=== PATIENT | female | born 1970 | race Caucasian/White ===

== ENCOUNTER 2018-11-10 12:45 | Inpatient (IN) | payer MEDICAID ==
[~2018-11-10] VITALS: Ht 167.6 cm; Wt 94.3 kg
[2018-11-10 12:50] VITALS: BP_SYST 161
[2018-11-10 13:39] LABS: CALCIUM 8.5 mg/dL (8.4-11.0); CREATININE 0.84 mg/dL (0.55-1.30); POTASSIUM 3.3 mmol/L (3.5-5.1)
[2018-11-10 13:45] LABS: ALBUMIN 3.9 g/dL (3.4-4.8); TOTAL BILIRUBIN 0.3 mg/dL (0.0-1.0)
[2018-11-10 13:50] LABS: HEMOGLOBIN 7.9 g/dL (12.0-16.0); MEAN CORPUSCULAR HEMOGLOBIN 24 pg (27-31); MEAN CORPUSCULAR HGB CONC 31 % (32-36); MEAN CORPUSCULAR VOLUME 77 fL (79.0-98.0); PLATELET COUNT (AUTO) 349 K/uL (130-430); RED BLOOD CELL COUNT(AUTO) 3.25 MIL/uL (4.2-6.2); RED CELL DISTRIBUTION WIDTH 16.4 % (9.0-15.0); WHITE BLOOD COUNT (AUTO) 11.2 K/uL (4.8-10.8)
[2018-11-10 13:51] LABS: BASOPHILS # (AUTO) 0.1 K/uL (0.0-0.2); BASOPHILS % (AUTO) 0.7 % (0.0-2.0); EOSINOPHILS % (AUTO) 0.3 % (0.0-4.0); LYMPHOCYTES # (AUTO) 2.5 K/uL (1.0-5.5); LYMPHOCYTES % (AUTO) 22.2 % (20.5-51.5); MONOCYTES # (AUTO) 0.6 K/uL (0.0-1.0); MONOCYTES % (AUTO) 5.4 % (1.7-9.3); NEUTROPHILS % (AUTO) 71.4 % (40.0-70.0)
[2018-11-10 14:42] LABS: PROTHROMBIN TIME 10.1 SECS (9.5-12.5)
[2018-11-10] MEDS ORDERED: GABA-531 PO (14:49)
[2018-11-10] MEDS ORDERED: DULO60CA41 PO (14:49)
[2018-11-10] MEDS ORDERED: METH500T PO (14:49)
[2018-11-10] MEDS ORDERED: HYDR-4272 PO (14:49)
[2018-11-10] MEDS ORDERED: MODA100T53 PO (14:49)
[2018-11-10] MEDS ORDERED: ZOLP10TA2 PO (14:49)
[2018-11-10] MEDS ORDERED: ONDANSETRON HCL 4 MG/2 ML VIAL IVP ONE (16:15)
[2018-11-10] MEDS ORDERED: PANTOPRAZOLE SODIUM 40 MG/VIAL (PROTONIX) IVP ONE (16:15)
[2018-11-10 16:49] VITALS: BP_SYST 149
[2018-11-10 16:57] VITALS: BP_SYST 149
[2018-11-10] MEDS: ACETAMINOPHEN 650 MG/20.3 ML UDC PO PRN ×2 (17:31→23:14)
[2018-11-10 20:00] VITALS: BP_SYST 125
[2018-11-11 00:25] VITALS: BP_SYST 136
[2018-11-11 07:43] VITALS: BP_SYST 116
[2018-11-11] MEDS: HYDROcodone/ACETAMIN 5-325 MG TAB (NORCO/ VICODIN) PO PRN ×3 (07:51→20:11)
[2018-11-11 07:55] LABS: ALBUMIN 3.2 g/dL (3.4-4.8); CREATININE 0.58 mg/dL (0.55-1.30); TOTAL BILIRUBIN 0.6 mg/dL (0.0-1.0)
[2018-11-11 08:08] LABS: HEMATOCRIT 26.8 % (36-48); HEMOGLOBIN 8.7 g/dL (12.0-16.0); MEAN CORPUSCULAR HEMOGLOBIN 25 pg (27-31); MEAN CORPUSCULAR HGB CONC 33 % (32-36); MEAN CORPUSCULAR VOLUME 79 fL (79.0-98.0); NEUTROPHILS % (AUTO) 52.5 % (40.0-70.0); PLATELET COUNT (AUTO) 306 K/uL (130-430); POTASSIUM 2.9 mmol/L (3.5-5.1); RED CELL DISTRIBUTION WIDTH 16.3 % (9.0-15.0); WHITE BLOOD COUNT (AUTO) 8.6 K/uL (4.8-10.8)
[2018-11-11 08:09] LABS: BASOPHILS % (AUTO) 0.6 % (0.0-2.0); EOSINOPHILS % (AUTO) 1.3 % (0.0-4.0); LYMPHOCYTES # (AUTO) 3.3 K/uL (1.0-5.5); LYMPHOCYTES % (AUTO) 37.8 % (20.5-51.5); MONOCYTES % (AUTO) 7.8 % (1.7-9.3); NEUTROPHILS # (AUTO) 4.5 K/uL (1.8-7.7)
[2018-11-11 08:10] LABS: EOSINOPHILS # (AUTO) 0.1 K/uL (0.0-0.4); MONOCYTES # (AUTO) 0.7 K/uL (0.0-1.0)
[2018-11-11 08:16] LABS: TOTAL IRON BIND. CAPACITY 369 ug/dL (250-450)
[2018-11-11] MEDS: PANTOPRAZOLE SODIUM 40 MG/VIAL (PROTONIX) IVP SCH (08:38)
[2018-11-11] MEDS: ONDANSETRON HCL 4 MG/2 ML VIAL IVP SCH (08:38)
[2018-11-11] MEDS: DULoxetine HCL 30 MG CAPSULE.DR (CYMBALTA) PO SCH (08:39)
[2018-11-11] MEDS: MODAFINIL 100 MG TABLET (PROVIGIL) PO SCH (08:39)
[2018-11-11] MEDS: GABAPENTIN 300 MG CAPSULE PO SCH ×3 (08:39→20:12)
[2018-11-11] MEDS: METHOCARBAMOL 500 MG TABLET PO SCH ×3 (08:39→20:12)
[2018-11-11] MEDS ORDERED: POTASSIUM CHLORIDE 20 MEQ TAB.PRT.SR PO ONE (10:30)
[2018-11-11 12:02] VITALS: BP_SYST 131
[2018-11-11 16:21] VITALS: BP_SYST 132
[2018-11-11] MEDS ORDERED: MAG-AL HYDROX/SIMETH 30 ML UDC PO PRN (17:45)
[2018-11-11 20:00] VITALS: BP_SYST 120
[2018-11-11] MEDS ORDERED: ZOLPIDEM TARTRATE 5 MG TABLET PO SCH (21:00)
[2018-11-11] MEDS: ZOLPIDEM TARTRATE 5 MG TABLET PO SCH (22:52)
[2018-11-12] VITALS (7 sets, daily range): BP systolic 128–154
[2018-11-12 07:18] LABS: CALCIUM 8.1 mg/dL (8.4-11.0); CREATININE 0.57 mg/dL (0.55-1.30); POTASSIUM 3.7 mmol/L (3.5-5.1)
[2018-11-12 07:47] LABS: HEMATOCRIT 26.7 % (36-48); HEMOGLOBIN 8.5 g/dL (12.0-16.0); LYMPHOCYTES % (AUTO) 28.7 % (20.5-51.5); MEAN CORPUSCULAR HEMOGLOBIN 25 pg (27-31); MEAN CORPUSCULAR HGB CONC 32 % (32-36); MEAN CORPUSCULAR VOLUME 79 fL (79.0-98.0); NEUTROPHILS % (AUTO) 62.3 % (40.0-70.0); PLATELET COUNT (AUTO) 290 K/uL (130-430); RED BLOOD CELL COUNT(AUTO) 3.36 MIL/uL (4.2-6.2); RED CELL DISTRIBUTION WIDTH 16.5 % (9.0-15.0); WHITE BLOOD COUNT (AUTO) 9.5 K/uL (4.8-10.8)
[2018-11-12 07:48] LABS: BASOPHILS % (AUTO) 0.4 % (0.0-2.0); EOSINOPHILS # (AUTO) 0.1 K/uL (0.0-0.4); LYMPHOCYTES # (AUTO) 2.7 K/uL (1.0-5.5); MONOCYTES # (AUTO) 0.7 K/uL (0.0-1.0); MONOCYTES % (AUTO) 7.6 % (1.7-9.3)
[2018-11-12] MEDS: ONDANSETRON HCL 4 MG/2 ML VIAL IVP SCH (08:00)
[2018-11-12] MEDS: GABAPENTIN 300 MG CAPSULE PO SCH ×3 (08:00→20:14)
[2018-11-12] MEDS: METHOCARBAMOL 500 MG TABLET PO SCH ×3 (08:00→20:14)
[2018-11-12] MEDS: PANTOPRAZOLE SODIUM 40 MG/VIAL (PROTONIX) IVP SCH (08:00)
[2018-11-12] MEDS: DULoxetine HCL 30 MG CAPSULE.DR (CYMBALTA) PO SCH (08:00)
[2018-11-12] MEDS: MODAFINIL 100 MG TABLET (PROVIGIL) PO SCH (08:00)
[2018-11-12] MEDS: HYDROcodone/ACETAMIN 5-325 MG TAB (NORCO/ VICODIN) PO PRN ×4 (08:00→21:15)
[2018-11-12] MEDS: ACETAMINOPHEN 650 MG/20.3 ML UDC PO PRN ×2 (11:29→18:52)
[2018-11-12] MEDS ORDERED: POTASSIUM CHLORIDE 20 MEQ/PKT PACKET PO ONE (11:58)
[2018-11-12] MEDS ORDERED: FUROSEMIDE 40 MG/4 ML VIAL IVP ONE (11:58)
[2018-11-12] MEDS ORDERED: AZITHROMYCIN 250 MG TABLET PO ONE (12:15)
[2018-11-12] MEDS: ALBUTEROL SULFATE 0.083% 2.5 MG/3 ML VIAL.NEB INH PRN (13:18)
[2018-11-12] MEDS: MORPHINE 4 MG/ML INJ. SYRINGE IVP PRN (14:45)
[2018-11-12] MEDS ORDERED: MORPHINE 4 MG/ML INJ. SYRINGE ONE (18:46)
[2018-11-12] MEDS ORDERED: MORPHINE 4 MG/ML INJ. SYRINGE IVP SCH (19:00)
[2018-11-12] MEDS: ZOLPIDEM TARTRATE 5 MG TABLET PO SCH (23:27)
[2018-11-12] MEDS ORDERED: ZOLPIDEM TARTRATE 5 MG TABLET ONE (23:36)
[2018-11-13] MEDS: MORPHINE 4 MG/ML INJ. SYRINGE IVP PRN ×3 (01:41→14:17)
[2018-11-13] MEDS: HYDROcodone/ACETAMIN 5-325 MG TAB (NORCO/ VICODIN) PO PRN ×3 (05:57→21:35)
[2018-11-13 07:59] LABS: CALCIUM 8.8 mg/dL (8.4-11.0); CREATININE 0.83 mg/dL (0.55-1.30); POTASSIUM 3.5 mmol/L (3.5-5.1)
[2018-11-13 08:15] VITALS: BP_SYST 150
[2018-11-13] MEDS: ONDANSETRON HCL 4 MG/2 ML VIAL IVP SCH (08:15)
[2018-11-13] MEDS: GABAPENTIN 300 MG CAPSULE PO SCH ×3 (08:16→21:35)
[2018-11-13] MEDS: MODAFINIL 100 MG TABLET (PROVIGIL) PO SCH (08:16)
[2018-11-13] MEDS: AZITHROMYCIN 250 MG TABLET PO SCH (08:16)
[2018-11-13] MEDS: METHOCARBAMOL 500 MG TABLET PO SCH ×3 (08:17→21:35)
[2018-11-13] MEDS: DULoxetine HCL 30 MG CAPSULE.DR (CYMBALTA) PO SCH (08:17)
[2018-11-13] MEDS: PANTOPRAZOLE SODIUM 40 MG/VIAL (PROTONIX) IVP SCH (08:17)
[2018-11-13 08:36] LABS: WHITE BLOOD COUNT (AUTO) 11.6 K/uL (4.8-10.8)
[2018-11-13 08:42] LABS: HEMATOCRIT 31.9 % (36-48); HEMOGLOBIN 9.9 g/dL (12.0-16.0); MEAN CORPUSCULAR HEMOGLOBIN 25 pg (27-31); MEAN CORPUSCULAR HGB CONC 31 % (32-36); MEAN CORPUSCULAR VOLUME 80 fL (79.0-98.0); MONOCYTES % (AUTO) 15.7 % (1.7-9.3); NEUTROPHILS % (AUTO) 63.6 % (40.0-70.0); PLATELET COUNT (AUTO) 364 K/uL (130-430); RED CELL DISTRIBUTION WIDTH 16.6 % (9.0-15.0)
[2018-11-13 08:43] LABS: BASOPHILS % (AUTO) 0.3 % (0.0-2.0); EOSINOPHILS % (AUTO) 0.4 % (0.0-4.0); LYMPHOCYTES # (AUTO) 2.3 K/uL (1.0-5.5); MONOCYTES # (AUTO) 1.8 K/uL (0.0-1.0); NEUTROPHILS # (AUTO) 7.4 K/uL (1.8-7.7)
[2018-11-13] MEDS ORDERED: MILK OF MAGNESIA 30 ML UDC PO ONE (09:15)
[2018-11-13 12:32] VITALS: BP_SYST 116
[2018-11-13] MEDS: ALBUTEROL SULFATE 0.083% 2.5 MG/3 ML VIAL.NEB INH PRN (15:46)
[2018-11-13 16:10] VITALS: BP_SYST 124
[2018-11-13 17:11] VITALS: BP_SYST 124
[2018-11-13] MEDS: ACETAMINOPHEN 650 MG/20.3 ML UDC PO PRN (21:34)
[2018-11-13] MEDS: ZOLPIDEM TARTRATE 5 MG TABLET PO SCH (22:19)
[2018-11-13] MEDS ORDERED: ZOLPIDEM TARTRATE 5 MG TABLET ONE (22:24)
[2018-11-14 00:02] VITALS: BP_SYST 126
[2018-11-14] MEDS: ACETAMINOPHEN 650 MG/20.3 ML UDC PO PRN (05:19)
[2018-11-14] MEDS: HYDROcodone/ACETAMIN 5-325 MG TAB (NORCO/ VICODIN) PO PRN ×3 (05:20→17:33)
[2018-11-14] MEDS: MORPHINE 4 MG/ML INJ. SYRINGE IVP PRN ×3 (06:26→20:56)
[2018-11-14 08:00] VITALS: BP_SYST 101
[2018-11-14] MEDS: PANTOPRAZOLE SODIUM 40 MG/VIAL (PROTONIX) IVP SCH (08:03)
[2018-11-14] MEDS: ONDANSETRON HCL 4 MG/2 ML VIAL IVP SCH (08:03)
[2018-11-14] MEDS: MODAFINIL 100 MG TABLET (PROVIGIL) PO SCH (08:04)
[2018-11-14] MEDS: GABAPENTIN 300 MG CAPSULE PO SCH ×3 (08:04→20:22)
[2018-11-14] MEDS: DULoxetine HCL 30 MG CAPSULE.DR (CYMBALTA) PO SCH (08:04)
[2018-11-14] MEDS: AZITHROMYCIN 250 MG TABLET PO SCH (08:04)
[2018-11-14] MEDS: METHOCARBAMOL 500 MG TABLET PO SCH ×3 (08:04→20:22)
[2018-11-14 08:07] LABS: CALCIUM 7.9 mg/dL (8.4-11.0); CREATININE 0.73 mg/dL (0.55-1.30); HEMOGLOBIN 8.9 g/dL (12.0-16.0); MEAN CORPUSCULAR VOLUME 79 fL (79.0-98.0); POTASSIUM 3.6 mmol/L (3.5-5.1); RED BLOOD CELL COUNT(AUTO) 3.55 MIL/uL (4.2-6.2); WHITE BLOOD COUNT (AUTO) 6.9 K/uL (4.8-10.8)
[2018-11-14 08:08] LABS: BASOPHILS % (AUTO) 0.5 % (0.0-2.0); EOSINOPHILS % (AUTO) 0.6 % (0.0-4.0); LYMPHOCYTES # (AUTO) 1.3 K/uL (1.0-5.5); LYMPHOCYTES % (AUTO) 18.3 % (20.5-51.5); MEAN CORPUSCULAR HEMOGLOBIN 25 pg (27-31); MEAN CORPUSCULAR HGB CONC 32 % (32-36); MONOCYTES # (AUTO) 0.9 K/uL (0.0-1.0); NEUTROPHILS # (AUTO) 4.7 K/uL (1.8-7.7); NEUTROPHILS % (AUTO) 67.6 % (40.0-70.0); PLATELET COUNT (AUTO) 296 K/uL (130-430); RED CELL DISTRIBUTION WIDTH 17.5 % (9.0-15.0)
[2018-11-14 08:17] LABS: ALBUMIN 3.2 g/dL (3.4-4.8); TOTAL BILIRUBIN 0.3 mg/dL (0.0-1.0)
[2018-11-14] MEDS ORDERED: MAGNESIUM CITRATE 300 ML ORAL SOLUTION PO ONE (09:15)
[2018-11-14] MEDS: cefTRIAXone 1 GM in D5W 50 ML IV SCH (12:04)
[2018-11-14 12:06] VITALS: BP_SYST 126
[2018-11-14 13:35] LABS: BILIRUBIN,URINE 1+ (NEGATIVE); BLOOD, URINE 3+ (NEGATIVE); CLARITY/URINE HAZY (CLEAR); COLOR,URINE YELLOW (YELLOW); GLUCOSE,URINE NEGATIVE (NEGATIVE); KETONES,URINE NEGATIVE (NEGATIVE); LEUKOCYTE ESTERASE ,URINE NEGATIVE (NEGATIVE); NITRITE, URINE NEGATIVE (NEGATIVE); PH,URINE 5.5 (5.0-8.0); PROTEIN URINE 2+ (NEGATIVE); UROBILINOGEN,URINE 0.2 (0.2-1.0)
[2018-11-14 14:17] LABS: BACTERIA,URINE FEW /HPF (None Seen); RBC,URINE >100 /HPF (0-3); WBC,URINE 0-3 /HPF (0-3); YEAST,URINE None Seen /HPF (None Seen)
[2018-11-14 14:18] LABS: MUCUS,URINE None Seen /LPF (None Seen)
[2018-11-14 16:47] VITALS: BP_SYST 118
[2018-11-14 20:21] VITALS: BP_SYST 131
[2018-11-14] MEDS: ALBUTEROL SULFATE 0.083% 2.5 MG/3 ML VIAL.NEB INH PRN (22:51)
[2018-11-14] MEDS: ZOLPIDEM TARTRATE 5 MG TABLET PO SCH (23:38)
[2018-11-14] MEDS ORDERED: ZOLPIDEM TARTRATE 5 MG TABLET ONE (23:40)
[2018-11-15 00:43] VITALS: BP_SYST 127
[2018-11-15] MEDS: ACETAMINOPHEN 650 MG/20.3 ML UDC PO PRN (03:52)
[2018-11-15] MEDS: HYDROcodone/ACETAMIN 5-325 MG TAB (NORCO/ VICODIN) PO PRN ×2 (03:52→11:17)
[2018-11-15 07:46] LABS: HEMATOCRIT 26.8 % (36-48); HEMOGLOBIN 8.4 g/dL (12.0-16.0); MEAN CORPUSCULAR HEMOGLOBIN 25 pg (27-31); MEAN CORPUSCULAR HGB CONC 31 % (32-36); MEAN CORPUSCULAR VOLUME 79 fL (79.0-98.0); RED BLOOD CELL COUNT(AUTO) 3.39 MIL/uL (4.2-6.2); RED CELL DISTRIBUTION WIDTH 17.7 % (9.0-15.0); WHITE BLOOD COUNT (AUTO) 5.3 K/uL (4.8-10.8)
[2018-11-15 07:47] LABS: BASOPHILS % (AUTO) 0.4 % (0.0-2.0); EOSINOPHILS % (AUTO) 0.9 % (0.0-4.0); LYMPHOCYTES % (AUTO) 28.8 % (20.5-51.5); NEUTROPHILS % (AUTO) 57.9 % (40.0-70.0); PLATELET COUNT (AUTO) 262 K/uL (130-430)
[2018-11-15 07:48] LABS: LYMPHOCYTES # (AUTO) 1.5 K/uL (1.0-5.5); MONOCYTES # (AUTO) 0.6 K/uL (0.0-1.0); NEUTROPHILS # (AUTO) 3.1 K/uL (1.8-7.7)
[2018-11-15 07:52] LABS: ALBUMIN 3.1 g/dL (3.4-4.8); CREATININE 0.75 mg/dL (0.55-1.30); POTASSIUM 3.7 mmol/L (3.5-5.1); TOTAL BILIRUBIN 0.3 mg/dL (0.0-1.0)
[2018-11-15 09:00] VITALS: BP_SYST 109
[2018-11-15] MEDS: MODAFINIL 100 MG TABLET (PROVIGIL) PO SCH (09:00)
[2018-11-15] MEDS: PANTOPRAZOLE SODIUM 40 MG/VIAL (PROTONIX) IVP SCH (09:00)
[2018-11-15] MEDS: GABAPENTIN 300 MG CAPSULE PO SCH (09:00)
[2018-11-15] MEDS: METHOCARBAMOL 500 MG TABLET PO SCH (09:00)
[2018-11-15] MEDS: DULoxetine HCL 30 MG CAPSULE.DR (CYMBALTA) PO SCH (09:00)
[2018-11-15] MEDS: ONDANSETRON HCL 4 MG/2 ML VIAL IVP SCH (09:00)
[2018-11-15] MEDS: AZITHROMYCIN 250 MG TABLET PO SCH (09:00)
[2018-11-15 11:03] VITALS: BP_SYST 127
[2018-11-15] MEDS: cefTRIAXone 1 GM in D5W 50 ML IV SCH (11:16)
[2018-11-15 11:21] VITALS: BP_SYST 118
[2018-11-15 12:12] LABS: FOLATE (FOLIC ACID) 14.2 ng/mL (>3.0)
[2018-11-15 14:55] VITALS: BP_SYST 118
[2018-11-15 15:25] VITALS: BP_SYST 126
== END 2018-11-15 15:30 | disposition home or self-care (01) | DRG 663 ==
LOC: SED 12:45 → STU 15:47 → SMU 11-12 13:00
PROVIDERS: ADMIT Internal Medicine; ATTEND Internal Medicine
PROC: 30233N1 Transfusion of Nonautologous Red Blood Cells into Peripheral Vein, Percutaneous Approach (ICD-10-PCS; principal; 2018-11-10)
DX: D50.9 Iron deficiency anemia, unspecified (principal); J18.9 Pneumonia, unspecified organism; M32.9 Systemic lupus erythematosus, unspecified; G62.9 Polyneuropathy, unspecified; K59.00 Constipation, unspecified; F32.9 Major depressive disorder, single episode, unspecified; M79.7 Fibromyalgia; J40 Bronchitis, not specified as acute or chronic; G47.30 Sleep apnea, unspecified; G89.29 Other chronic pain; E66.9 Obesity, unspecified; I10 Essential (primary) hypertension; K44.9 Diaphragmatic hernia without obstruction or gangrene; Z98.51 Tubal ligation status; Z68.33 Body mass index [BMI] 33.0-33.9, adult; Z79.899 Other long term (current) drug therapy
CPT/HCPCS: 36415; 71045; 80048; 80053; 81000-TC; 82272; 82550-TC; 82607; 82728; 82746; 83010; 83540-TC; 83550-TC; 84484; 84703; 85025; 85044-TC; 85610-TC; 85730-TC; 86886; 86900; 86901; 86920; 93005; 94640; 94760; 99285; C9113; G0378; J0696; J1940; J2270; J2405; J7060; J7613; P9021; Q0144

== ENCOUNTER 2018-11-19 20:58 | Emergency (ER) | payer MEDICAID ==
[~2018-11-19] VITALS: Ht 165.1 cm; Wt 93.0 kg
[~2018-11-19 20:58] MED LIST: DULO60CA41 PO; GABA-531 PO; HYDR-4272 PO; METH500T PO; MODA100T53 PO; ZOLP10TA2 PO
[2018-11-19 21:14] VITALS: BP_SYST 164
[2018-11-19 21:51] LABS: BASOPHILS % (AUTO) 0.3 % (0.0-2.0); EOSINOPHILS % (AUTO) 0.3 % (0.0-4.0); HEMATOCRIT 31.5 % (36-48); HEMOGLOBIN 9.8 g/dL (12.0-16.0); LYMPHOCYTES % (AUTO) 43.9 % (20.5-51.5); MEAN CORPUSCULAR HEMOGLOBIN 24 pg (27-31); MEAN CORPUSCULAR HGB CONC 31 % (32-36); MEAN CORPUSCULAR VOLUME 77 fL (79.0-98.0); MONOCYTES % (AUTO) 6.5 % (1.7-9.3); NEUTROPHILS # (AUTO) 4.6 K/uL (1.8-7.7); PLATELET COUNT (AUTO) 412 K/uL (130-430); RED BLOOD CELL COUNT(AUTO) 4.08 MIL/uL (4.2-6.2); RED CELL DISTRIBUTION WIDTH 17.8 % (9.0-15.0); WHITE BLOOD COUNT (AUTO) 9.4 K/uL (4.8-10.8)
[2018-11-19 21:52] LABS: LYMPHOCYTES # (AUTO) 4.1 K/uL (1.0-5.5); MONOCYTES # (AUTO) 0.6 K/uL (0.0-1.0)
[2018-11-19 21:59] LABS: CALCIUM 8.7 mg/dL (8.4-11.0); CREATININE 0.84 mg/dL (0.55-1.30); POTASSIUM 3.4 mmol/L (3.5-5.1)
[2018-11-19 22:01] LABS: PROTHROMBIN TIME 10.1 SECS (9.5-12.5)
[2018-11-19 22:04] LABS: TOTAL BILIRUBIN 0.5 mg/dL (0.0-1.0)
[2018-11-19] MEDS ORDERED: IPRATROPIUM/ALBUTEROL SULFATE 3 ML AMPUL.NEB (DUONEB) INH ONE (22:30)
[2018-11-19] MEDS ORDERED: IBUPROFEN 600 MG TABLET PO ONE (22:30)
[2018-11-19] MEDS ORDERED: AZITHROMYCIN 250 MG TABLET PO ONE (22:30)
[2018-11-19] MEDS ORDERED: HYDROcodone/ACETAMIN 5-325 MG TAB (NORCO/ VICODIN) PO ONE (22:45)
[2018-11-19 22:59] VITALS: BP_SYST 149
== END 2018-11-19 22:54 | disposition home or self-care (01) ==
LOC: SED 20:58
DX: J40 Bronchitis, not specified as acute or chronic (principal); Z86.2 Personal history of diseases of the blood and blood-forming organs and certain disorders involving the immune mechanism; Z79.899 Other long term (current) drug therapy
CPT/HCPCS: 36415; 71045; 80053; 85025; 85610; 94640; 99284; J7620; Q0144

== ENCOUNTER 2019-01-16 18:42 | Emergency (ER) | payer MEDICAID ==
[~2019-01-16] VITALS: Ht 167.6 cm; Wt 91.6 kg
[2019-01-16 18:45] VITALS: BP_SYST 147
[2019-01-16] MEDS ORDERED: ALBUTEROL SULFATE 0.083% 2.5 MG/3 ML VIAL.NEB IH ONE (19:00)
[2019-01-16] MEDS ORDERED: IPRATROPIUM BROM 0.5 MG/2.5 ML VIAL.NEB (ATROVENT) IH ONE (19:00)
[2019-01-16 19:11] LABS: BASOPHILS # (AUTO) 0.1 K/uL (0.0-0.2); BASOPHILS % (AUTO) 0.8 % (0.0-2.0); EOSINOPHILS # (AUTO) 0.2 K/uL (0.0-0.4); EOSINOPHILS % (AUTO) 1.4 % (0.0-4.0); HEMATOCRIT 24.8 % (36-48); HEMOGLOBIN 7.8 g/dL (12.0-16.0); LYMPHOCYTES # (AUTO) 3.4 K/uL (1.0-5.5); LYMPHOCYTES % (AUTO) 27.7 % (20.5-51.5); MEAN CORPUSCULAR HEMOGLOBIN 23 pg (27-31); MEAN CORPUSCULAR HGB CONC 32 % (32-36); MEAN CORPUSCULAR VOLUME 71 fL (79.0-98.0); MONOCYTES % (AUTO) 7.9 % (1.7-9.3); NEUTROPHILS # (AUTO) 7.6 K/uL (1.8-7.7); NEUTROPHILS % (AUTO) 62.2 % (40.0-70.0); PLATELET COUNT (AUTO) 422 K/uL (130-430); RED BLOOD CELL COUNT(AUTO) 3.47 MIL/uL (4.2-6.2); RED CELL DISTRIBUTION WIDTH 17.5 % (9.0-15.0); WHITE BLOOD COUNT (AUTO) 12.3 K/uL (4.8-10.8)
[2019-01-16 19:23] LABS: CALCIUM 8.6 mg/dL (8.4-11.0); CREATININE 0.77 mg/dL (0.55-1.30); POTASSIUM 3.6 mmol/L (3.5-5.1)
[2019-01-16 19:28] LABS: ALBUMIN 3.8 g/dL (3.4-4.8); INR 0.9 (0.8-1.2); PROTHROMBIN TIME 9.7 SECS (9.5-12.5); TOTAL BILIRUBIN 0.4 mg/dL (0.0-1.0)
[2019-01-16] MEDS ORDERED: KETOROLAC TROMETHAMINE 30 MG VIAL IVP ONE (20:30)
[2019-01-16] MEDS ORDERED: NACL 0.9% 1,000 ML IV ONE (21:00)
[2019-01-16] MEDS ORDERED: ONDANSETRON HCL 4 MG/2 ML VIAL IVP ONE (21:00)
[2019-01-16] MEDS ORDERED: fentaNYL CITRATE/PF 100 MCG/2 ML AMP IVP ONE (21:00)
[2019-01-16 21:13] LABS: CANNABINOID, URINE POSITIVE (NEG <=50); OPIATE, URINE POSITIVE (NEG <=100)
[2019-01-16 21:14] LABS: UR TRICYCLIC ANTIDEPRESSANTS POSITIVE (NEG <=300)
[2019-01-16 21:15] LABS: BARBITURATE, URINE NEGATIVE (NEG <=200); BENZODIAZEPINE, URINE NEGATIVE (NEG <=150); COCAINE, URINE NEGATIVE (NEG <=150); METHAMPHETAMINES SCREEN,URINE NEGATIVE (NEG <=500); PHENCYCLIDINE SCREEN,URINE NEGATIVE (NEG <=25); URINE AMPHETAMINE NEGATIVE (NEG <=500); URINE METHADONE NEGATIVE (NEG <=200); URINE OXYCODONE SCREEN NEGATIVE (NEG <=100); URINE PROPOXYPHENE SCREEN NEGATIVE (NEG <=300)
[2019-01-16 23:17] VITALS: BP_SYST 138
== END 2019-01-16 23:17 | disposition home or self-care (01) ==
LOC: SED 18:42
DX: J98.01 Acute bronchospasm (principal); G89.29 Other chronic pain; M54.9 Dorsalgia, unspecified; M32.9 Systemic lupus erythematosus, unspecified; D53.9 Nutritional anemia, unspecified; Z79.899 Other long term (current) drug therapy
CPT/HCPCS: 36415; 71045; 80053; 80307; 81025; 83880; 84484; 85025; 85379; 85610; 85730; 93005; 94640; 96374; 96375; 99284; J1885; J2405; J3010; J7030; J7613

== ENCOUNTER 2019-02-02 16:18 | Inpatient (IN) | payer MEDICAID, OTHER ==
[~2019-02-02] VITALS: Ht 165.1 cm; Wt 95.3 kg
[2019-02-02 16:29] VITALS: BP_SYST 134
[2019-02-02 16:47] LABS: BILIRUBIN,URINE NEGATIVE (NEGATIVE); BLOOD, URINE NEGATIVE (NEGATIVE); CLARITY/URINE CLEAR (CLEAR); COLOR,URINE YELLOW (YELLOW); GLUCOSE,URINE NEGATIVE (NEGATIVE); KETONES,URINE NEGATIVE (NEGATIVE); LEUKOCYTE ESTERASE ,URINE NEGATIVE (NEGATIVE); NITRITE, URINE NEGATIVE (NEGATIVE); PH,URINE 5.5 (5.0-8.0); PROTEIN URINE NEGATIVE (NEGATIVE); UROBILINOGEN,URINE 0.2 (0.2-1.0)
[2019-02-02 17:00] LABS: BASOPHILS # (AUTO) 0.1 K/uL (0.0-0.2); BASOPHILS % (AUTO) 0.6 % (0.0-2.0); EOSINOPHILS # (AUTO) 0.2 K/uL (0.0-0.4); EOSINOPHILS % (AUTO) 1.3 % (0.0-4.0); HEMATOCRIT 24.7 % (36-48); HEMOGLOBIN 7.4 g/dL (12.0-16.0); LYMPHOCYTES # (AUTO) 2.4 K/uL (1.0-5.5); LYMPHOCYTES % (AUTO) 20.2 % (20.5-51.5); MEAN CORPUSCULAR HEMOGLOBIN 21 pg (27-31); MEAN CORPUSCULAR HGB CONC 30 % (32-36); MEAN CORPUSCULAR VOLUME 69 fL (79.0-98.0); MONOCYTES % (AUTO) 8.3 % (1.7-9.3); NEUTROPHILS # (AUTO) 8.3 K/uL (1.8-7.7); NEUTROPHILS % (AUTO) 69.6 % (40.0-70.0); PLATELET COUNT (AUTO) 443 K/uL (130-430); RED BLOOD CELL COUNT(AUTO) 3.58 MIL/uL (4.2-6.2); WHITE BLOOD COUNT (AUTO) 11.9 K/uL (4.8-10.8)
[2019-02-02] MEDS ORDERED: ONDANSETRON HCL 4 MG/2 ML VIAL IVP ONE (17:00)
[2019-02-02] MEDS ORDERED: NACL 0.9% 1,000 ML IV ONE (17:00)
[2019-02-02] MEDS ORDERED: MORPHINE 4 MG/ML INJ. SYRINGE IVP ONE (17:00)
[2019-02-02 17:06] LABS: CALCIUM 8.8 mg/dL (8.4-11.0); CREATININE 0.93 mg/dL (0.55-1.30)
[2019-02-02 17:08] LABS: POTASSIUM 2.9 mmol/L (3.5-5.1)
[2019-02-02 17:09] LABS: PROTHROMBIN TIME 9.9 SECS (9.5-12.5)
[2019-02-02 17:12] LABS: ALBUMIN 4.1 g/dL (3.4-4.8); TOTAL BILIRUBIN 0.5 mg/dL (0.0-1.0)
[2019-02-02] MEDS ORDERED: POTASSIUM CHLORIDE 20 MEQ TAB.PRT.SR PO ONE (17:15)
[2019-02-02 19:36] VITALS: BP_SYST 139
[2019-02-02] MEDS ORDERED: HYDR200T80 PO (19:52)
[2019-02-02] MEDS ORDERED: DIPHENHYDRAMINE INJ 50 MG/ML VIAL IVP PRN (22:45)
[2019-02-02] MEDS ORDERED: ACETAMINOPHEN 325 MG TABLET PO PRN (22:45)
[2019-02-02] MEDS ORDERED: IPRATROPIUM/ALBUTEROL SULFATE 3 ML AMPUL.NEB (DUONEB) INH PRN (22:45)
[2019-02-02 23:21] LABS: TOTAL IRON BIND. CAPACITY 532 ug/dL (250-450)
[2019-02-02] MEDS: ZOLPIDEM TARTRATE 5 MG TABLET PO SCH (23:39)
[2019-02-03] MEDS: MORPHINE 4 MG/ML INJ. SYRINGE IVP PRN ×4 (00:03→18:02)
[2019-02-03 00:32] VITALS: BP_SYST 135
[2019-02-03 04:43] VITALS: BP_SYST 135
[2019-02-03 06:29] LABS: BASOPHILS % (AUTO) 0.6 % (0.0-2.0); EOSINOPHILS # (AUTO) 0.2 K/uL (0.0-0.4); HEMATOCRIT 24.5 % (36-48); HEMOGLOBIN 7.5 g/dL (12.0-16.0); LYMPHOCYTES # (AUTO) 3.2 K/uL (1.0-5.5); LYMPHOCYTES % (AUTO) 41.2 % (20.5-51.5); MEAN CORPUSCULAR HEMOGLOBIN 22 pg (27-31); MEAN CORPUSCULAR HGB CONC 31 % (32-36); MEAN CORPUSCULAR VOLUME 73 fL (79.0-98.0); MONOCYTES # (AUTO) 0.7 K/uL (0.0-1.0); MONOCYTES % (AUTO) 8.7 % (1.7-9.3); NEUTROPHILS # (AUTO) 3.6 K/uL (1.8-7.7); NEUTROPHILS % (AUTO) 47.5 % (40.0-70.0); PLATELET COUNT (AUTO) 311 K/uL (130-430); RED BLOOD CELL COUNT(AUTO) 3.38 MIL/uL (4.2-6.2); WHITE BLOOD COUNT (AUTO) 7.7 K/uL (4.8-10.8)
[2019-02-03 06:58] LABS: CALCIUM 8.6 mg/dL (8.4-11.0); CREATININE 0.72 mg/dL (0.55-1.30); POTASSIUM 3.5 mmol/L (3.5-5.1); THYROID STIMULATING HORMONE 1.6 uIu/mL (0.34-4.82)
[2019-02-03 07:10] LABS: RED CELL DISTRIBUTION WIDTH 19.1 % (9.0-15.0)
[2019-02-03 08:13] VITALS: BP_SYST 132
[2019-02-03 08:16] LABS: HCG,QUAL RESULT NEGATIVE (NEGATIVE)
[2019-02-03] MEDS: HYDROcodone/ACETAMIN 5-325 MG TAB (NORCO/ VICODIN) PO PRN ×2 (08:34→23:49)
[2019-02-03] MEDS: PANTOPRAZOLE SODIUM 40 MG TAB PO SCH (08:35)
[2019-02-03] MEDS: MODAFINIL 100 MG TABLET (PROVIGIL) PO SCH (08:35)
[2019-02-03] MEDS: POTASSIUM CHLORIDE 20 MEQ TAB.PRT.SR PO SCH ×2 (08:35→20:41)
[2019-02-03] MEDS: GABAPENTIN 300 MG CAPSULE PO SCH ×3 (08:36→20:41)
[2019-02-03] MEDS: DULoxetine HCL 30 MG CAPSULE.DR (CYMBALTA) PO SCH (08:36)
[2019-02-03] MEDS: SILVER SULFADIAZINE 1%, 25 GM TOPICAL CREAM (SSD) TP SCH ×2 (09:00→20:42)
[2019-02-03] MEDS ORDERED: DIATR MEGLU/DIATRIZ SOD 30 ML SOLUTION PO ONE (09:24)
[2019-02-03 11:11] VITALS: BP_SYST 136
[2019-02-03] MEDS ORDERED: IOHEXOL 100 ML IV ONE (11:26)
[2019-02-03 15:26] VITALS: BP_SYST 121
[2019-02-03] MEDS ORDERED: ONDANSETRON HCL 4 MG/2 ML VIAL IVP PRN (18:30)
[2019-02-03 19:45] VITALS: BP_SYST 128
[2019-02-03] MEDS: HYDROXYCHLOROQUINE SULFATE 200 MG TABLET PO SCH (21:00)
[2019-02-03] MEDS: ZOLPIDEM TARTRATE 5 MG TABLET PO SCH (23:48)
[2019-02-04 01:10] VITALS: BP_SYST 133
[2019-02-04 06:47] LABS: BASOPHILS % (AUTO) 0.6 % (0.0-2.0); EOSINOPHILS # (AUTO) 0.2 K/uL (0.0-0.4); EOSINOPHILS % (AUTO) 2.3 % (0.0-4.0); HEMATOCRIT 28.1 % (36-48); HEMOGLOBIN 8.7 g/dL (12.0-16.0); LYMPHOCYTES # (AUTO) 2.6 K/uL (1.0-5.5); LYMPHOCYTES % (AUTO) 38.8 % (20.5-51.5); MEAN CORPUSCULAR HEMOGLOBIN 23 pg (27-31); MEAN CORPUSCULAR HGB CONC 31 % (32-36); MEAN CORPUSCULAR VOLUME 75 fL (79.0-98.0); MONOCYTES # (AUTO) 0.6 K/uL (0.0-1.0); MONOCYTES % (AUTO) 9.4 % (1.7-9.3); NEUTROPHILS # (AUTO) 3.3 K/uL (1.8-7.7); NEUTROPHILS % (AUTO) 48.9 % (40.0-70.0); PLATELET COUNT (AUTO) 320 K/uL (130-430); RED BLOOD CELL COUNT(AUTO) 3.76 MIL/uL (4.2-6.2); RED CELL DISTRIBUTION WIDTH 20.5 % (9.0-15.0); WHITE BLOOD COUNT (AUTO) 6.7 K/uL (4.8-10.8)
[2019-02-04 06:56] LABS: CALCIUM 8.7 mg/dL (8.4-11.0); CREATININE 0.79 mg/dL (0.55-1.30); POTASSIUM 3.8 mmol/L (3.5-5.1)
[2019-02-04 07:52] VITALS: BP_SYST 110
[2019-02-04] MEDS: SILVER SULFADIAZINE 1%, 25 GM TOPICAL CREAM (SSD) TP SCH ×2 (09:07→21:04)
[2019-02-04] MEDS: POTASSIUM CHLORIDE 20 MEQ TAB.PRT.SR PO SCH ×2 (09:08→21:03)
[2019-02-04] MEDS: MODAFINIL 100 MG TABLET (PROVIGIL) PO SCH (09:08)
[2019-02-04] MEDS: PANTOPRAZOLE SODIUM 40 MG TAB PO SCH (09:08)
[2019-02-04] MEDS: DULoxetine HCL 30 MG CAPSULE.DR (CYMBALTA) PO SCH (09:08)
[2019-02-04] MEDS: GABAPENTIN 300 MG CAPSULE PO SCH ×3 (09:08→21:02)
[2019-02-04] MEDS: HYDROcodone/ACETAMIN 5-325 MG TAB (NORCO/ VICODIN) PO PRN (09:23)
[2019-02-04 11:41] VITALS: BP_SYST 128
[2019-02-04] MEDS: MORPHINE 4 MG/ML INJ. SYRINGE IVP PRN ×2 (12:40→17:50)
[2019-02-04 16:41] VITALS: BP_SYST 136
[2019-02-04] MEDS ORDERED: BISACODYL 5 MG TABLET.DR (DULCOLAX) PO ONE (17:00)
[2019-02-04] MEDS ORDERED: GOLYTELY / COLYTE SOLUTION 4 LITERS PO ONE (18:00)
[2019-02-04 19:47] VITALS: BP_SYST 153
[2019-02-04] MEDS: HYDROXYCHLOROQUINE SULFATE 200 MG TABLET PO SCH (21:03)
[2019-02-05 00:19] VITALS: BP_SYST 135
[2019-02-05] MEDS: ZOLPIDEM TARTRATE 5 MG TABLET PO SCH (01:48)
[2019-02-05] MEDS: HYDROcodone/ACETAMIN 5-325 MG TAB (NORCO/ VICODIN) PO PRN ×2 (01:48→15:18)
[2019-02-05] MEDS ORDERED: fentaNYL CITRATE/PF 100 MCG/2 ML AMP ONE (06:37)
[2019-02-05] MEDS ORDERED: SIMETHICONE 40 MG/0.6 ML ML ONE (06:37)
[2019-02-05] MEDS ORDERED: MIDAZOLAM HCL 5 MG/5 ML VIAL ONE (06:38)
[2019-02-05] MEDS ORDERED: BENZOCAINE 20% 0.5mL UD SPRAY MM ONE (07:17)
[2019-02-05] MEDS ORDERED: MEPERIDINE HCL/PF 100 MG/ML AMP ONE (07:23)
[2019-02-05 08:30] VITALS: BP_SYST 139
[2019-02-05] MEDS ORDERED: DIPHENHYDRAMINE INJ 50 MG/ML VIAL ONE (08:43)
[2019-02-05] MEDS ORDERED: PANTOPRAZOLE SODIUM 40 MG TAB PO SCH (09:00)
[2019-02-05] MEDS ORDERED: FERROUS SULFATE 325 MG TABLET.DR PO SCH (09:00)
[2019-02-05] MEDS ORDERED: PREDNISONE 10 MG TABLET PO SCH (09:00)
[2019-02-05] MEDS: DULoxetine HCL 30 MG CAPSULE.DR (CYMBALTA) PO SCH (09:07)
[2019-02-05] MEDS: MODAFINIL 100 MG TABLET (PROVIGIL) PO SCH (09:07)
[2019-02-05] MEDS: POTASSIUM CHLORIDE 20 MEQ TAB.PRT.SR PO SCH (09:08)
[2019-02-05] MEDS: GABAPENTIN 300 MG CAPSULE PO SCH ×2 (09:08→16:40)
[2019-02-05] MEDS: MORPHINE 4 MG/ML INJ. SYRINGE IVP PRN (09:10)
[2019-02-05 11:05] LABS: ALBUMIN 3.4 g/dL (3.4-4.8); CALCIUM 8.5 mg/dL (8.4-11.0); CREATININE 0.71 mg/dL (0.55-1.30); POTASSIUM 3.5 mmol/L (3.5-5.1); TOTAL BILIRUBIN 0.7 mg/dL (0.0-1.0)
[2019-02-05 11:06] LABS: PROTHROMBIN TIME 10.2 SECS (9.5-12.5)
[2019-02-05 11:09] LABS: BASOPHILS % (AUTO) 0.5 % (0.0-2.0); EOSINOPHILS # (AUTO) 0.1 K/uL (0.0-0.4); EOSINOPHILS % (AUTO) 1.7 % (0.0-4.0); HEMATOCRIT 27.3 % (36-48); HEMOGLOBIN 8.4 g/dL (12.0-16.0); LYMPHOCYTES % (AUTO) 24.7 % (20.5-51.5); MEAN CORPUSCULAR HEMOGLOBIN 23 pg (27-31); MEAN CORPUSCULAR HGB CONC 31 % (32-36); MEAN CORPUSCULAR VOLUME 75 fL (79.0-98.0); MONOCYTES # (AUTO) 0.7 K/uL (0.0-1.0); MONOCYTES % (AUTO) 8.1 % (1.7-9.3); NEUTROPHILS # (AUTO) 5.3 K/uL (1.8-7.7); PLATELET COUNT (AUTO) 311 K/uL (130-430); RED BLOOD CELL COUNT(AUTO) 3.66 MIL/uL (4.2-6.2); RED CELL DISTRIBUTION WIDTH 21.4 % (9.0-15.0); WHITE BLOOD COUNT (AUTO) 8.1 K/uL (4.8-10.8)
[2019-02-05 11:36] VITALS: BP_SYST 124
[2019-02-05] MEDS ORDERED: SOD FERRIC GLUC COMPLEX/SUC 125 MG in NS 100 ML IV ONE (15:15)
[2019-02-05 15:45] VITALS: BP_SYST 141
[2019-02-05 17:29] VITALS: BP_SYST 149
[2019-02-05] MEDS ORDERED: PRO40 PO (17:46)
[2019-02-05] MEDS ORDERED: FERR-69 PO (17:47)
[2019-02-06 01:09] LABS: HAPTOGLOBIN 190 mg/dL (34-200)
[2019-02-06 09:08] LABS: FOLATE (FOLIC ACID) >20.0 ng/mL (>3.0)
[2019-02-06 10:29] LABS: FERRITIN 7 ng/mL (15-150)
[2019-02-06 10:29] LABS: FERRITIN 7 ng/mL (15-150)
== END 2019-02-05 19:45 | disposition home or self-care (01) | DRG 663 ==
LOC: SED 16:18 → SMU 19:14
PROVIDERS: ADMIT Internal Medicine; ATTEND Internal Medicine
PROC: 30233N1 Transfusion of Nonautologous Red Blood Cells into Peripheral Vein, Percutaneous Approach (ICD-10-PCS; principal; 2019-02-02)
PROC: 0DB98ZX Excision of Duodenum, Via Natural or Artificial Opening Endoscopic, Diagnostic (ICD-10-PCS; 2019-02-05)
PROC: 0DB68ZX Excision of Stomach, Via Natural or Artificial Opening Endoscopic, Diagnostic (ICD-10-PCS; 2019-02-05)
PROC: 0DBP8ZX Excision of Rectum, Via Natural or Artificial Opening Endoscopic, Diagnostic (ICD-10-PCS; 2019-02-05 07:00)
DX: D50.9 Iron deficiency anemia, unspecified (principal); M32.9 Systemic lupus erythematosus, unspecified; R65.10 Systemic inflammatory response syndrome (SIRS) of non-infectious origin without acute organ dysfunction; K62.6 Ulcer of anus and rectum; E86.0 Dehydration; K20.9 Esophagitis, unspecified; K29.70 Gastritis, unspecified, without bleeding; K44.9 Diaphragmatic hernia without obstruction or gangrene; K64.8 Other hemorrhoids; E78.5 Hyperlipidemia, unspecified; G47.30 Sleep apnea, unspecified; J45.909 Unspecified asthma, uncomplicated; E87.6 Hypokalemia; G89.29 Other chronic pain; M54.9 Dorsalgia, unspecified; E66.9 Obesity, unspecified; F32.9 Major depressive disorder, single episode, unspecified; Z88.8 Allergy status to other drugs, medicaments and biological substances; Z68.34 Body mass index [BMI] 34.0-34.9, adult
CPT/HCPCS: 36415; 36430; 43239; 45380; 71045; 76700-TC; 80048; 80053; 81003; 82607; 82728; 82746; 83010; 83021; 83540-TC; 83550-TC; 83615-TC; 84443-TC; 84703; 85025; 85044-TC; 85610-TC; 85660; 85730-TC; 86880-TC; 86886; 86900; 86901; 86920; 88305; 88312; 88313; 93005; 96361; 96374; 96375; 99285; J1200; J2175; J2250; J2270; J2405; J2916; J3010; J7030; J7040; J7050; J7512; P9021; Q9964; Q9967

== ENCOUNTER 2019-03-19 19:08 | Emergency (ER) | payer OTHER ==
[~2019-03-19] VITALS: Ht 165.1 cm; Wt 96.2 kg
[~2019-03-19 19:08] MED LIST changes: +FERR-69 PO; +HYDR200T80 PO; -METH500T PO; +PRO40 PO
[2019-03-19 19:14] VITALS: BP_SYST 159
[2019-03-19] MEDS ORDERED: NACL 0.9% 1,000 ML IV ONE (20:14)
[2019-03-19 20:49] LABS: BASOPHILS # (AUTO) 0.1 K/uL (0.0-0.2); BASOPHILS % (AUTO) 0.5 % (0.0-2.0); EOSINOPHILS # (AUTO) 0.1 K/uL (0.0-0.4); EOSINOPHILS % (AUTO) 0.8 % (0.0-4.0); HEMOGLOBIN 8.1 g/dL (12.0-16.0); LYMPHOCYTES # (AUTO) 2.9 K/uL (1.0-5.5); LYMPHOCYTES % (AUTO) 26.6 % (20.5-51.5); MEAN CORPUSCULAR HEMOGLOBIN 24 pg (27-31); MEAN CORPUSCULAR HGB CONC 31 % (32-36); MEAN CORPUSCULAR VOLUME 75 fL (79.0-98.0); MONOCYTES # (AUTO) 0.6 K/uL (0.0-1.0); NEUTROPHILS # (AUTO) 7.1 K/uL (1.8-7.7); NEUTROPHILS % (AUTO) 66.1 % (40.0-70.0); PLATELET COUNT (AUTO) 394 K/uL (130-430); RED BLOOD CELL COUNT(AUTO) 3.46 MIL/uL (4.2-6.2); RED CELL DISTRIBUTION WIDTH 20.1 % (9.0-15.0); WHITE BLOOD COUNT (AUTO) 10.8 K/uL (4.8-10.8)
[2019-03-19 21:01] LABS: CALCIUM 9.1 mg/dL (8.4-11.0); CREATININE 0.94 mg/dL (0.55-1.30); POTASSIUM 3.9 mmol/L (3.5-5.1)
[2019-03-19 21:08] LABS: ALBUMIN 3.5 g/dL (3.4-4.8); TOTAL BILIRUBIN 0.5 mg/dL (0.0-1.0)
[2019-03-19] MEDS ORDERED: DIPHENHYDRAMINE INJ 50 MG/ML VIAL IVP ONE (22:30)
[2019-03-19] MEDS ORDERED: MORPHINE 4 MG/ML INJ. SYRINGE IVP ONE (22:30)
[2019-03-19 22:47] LABS: BILIRUBIN,URINE NEGATIVE (NEGATIVE); BLOOD, URINE NEGATIVE (NEGATIVE); CLARITY/URINE CLEAR (CLEAR); COLOR,URINE YELLOW (YELLOW); GLUCOSE,URINE NEGATIVE (NEGATIVE); KETONES,URINE NEGATIVE (NEGATIVE); LEUKOCYTE ESTERASE ,URINE NEGATIVE (NEGATIVE); NITRITE, URINE NEGATIVE (NEGATIVE); PH,URINE 6.5 (5.0-8.0); PROTEIN URINE NEGATIVE (NEGATIVE); UROBILINOGEN,URINE 0.2 (0.2-1.0)
[2019-03-19] MEDS ORDERED: FERR-69 PO (22:47)
[2019-03-19] MEDS ORDERED: methylPREDNISolone SOD SUCC/PF 62.5 MG/ML VIAL IVP ONE (23:00)
[2019-03-20 00:16] VITALS: BP_SYST 159
== END 2019-03-20 00:16 | disposition home or self-care (01) ==
LOC: SED 19:08
DX: M32.9 Systemic lupus erythematosus, unspecified (principal); D64.9 Anemia, unspecified; M79.10 Myalgia, unspecified site; Z79.899 Other long term (current) drug therapy
CPT/HCPCS: 36415; 71045; 80053; 81003; 83605; 83735; 83880; 84484; 85025; 87040; 87086; 93005; 96374; 96375; 99284; J1200; J2270; J2930; J7030

== ENCOUNTER 2019-05-27 10:18 | Emergency (ER) | payer OTHER ==
[~2019-05-27] VITALS: Ht 165.1 cm; Wt 96.2 kg
--- NOTE | 2019-05-27 10:20 | NUR ---
Patient to ER bed 06 to gown for evaluation. Side rails up.
--- NOTE | 2019-05-27 10:22 | NUR ---
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
[2019-05-27 10:24] VITALS: BP_SYST 143
--- NOTE | 2019-05-27 10:24 | NUR ---
Marialuisa Riggs at bedside examining patient
[2019-05-27] MEDS ORDERED: HYDROcodone/ACETAMIN 5-325 MG TAB (NORCO/ VICODIN) PO ONE (10:45)
[2019-05-27] MEDS ORDERED: AMOXICILLIN/CLAVULANATE POTASSIUM 875 MG TABLET PO ONE (10:45)
[2019-05-27] MEDS ORDERED: IBUPROFEN 800 MG TABLET PO ONE (10:45)
[2019-05-27 11:15] VITALS: BP_SYST 138
--- NOTE | 2019-05-27 11:15 | NUR ---
Patient given written and verbal discharge instructions and verbalizes understanding. ER MD discussed with patient the results and treatment provided. Patient in stable condition. ID arm band removed. Rx of augmentin given. Patient educated on pain management and to follow up with PMD. Pain Scale 5/10.tolerable pain level per patient Opportunity for questions provided and answered. Medication side effect fact sheet provided.
== END 2019-05-27 11:15 | disposition home or self-care (01) ==
LOC: SED 10:18
DX: K04.7 Periapical abscess without sinus (principal); Z86.2 Personal history of diseases of the blood and blood-forming organs and certain disorders involving the immune mechanism; Z79.899 Other long term (current) drug therapy
CPT/HCPCS: 99283

== ENCOUNTER 2019-08-05 18:28 | Inpatient (IN) | payer OTHER ==
[~2019-08-05] VITALS: Ht 165.1 cm; Wt 98.0 kg
[2019-08-05 18:32] VITALS: BP_SYST 132
--- NOTE | 2019-08-05 18:38 | NUR ---
Patient brought back to bed 3 and 12-lead EKG done at bedside during triage. Shown to Dr. Childs for interpretation.
--- NOTE | 2019-08-05 18:45 | NUR ---
Pt brought self to ER stated she had SOB with activity, dizziness, chest and arm sharp pain rated 6/10. RR even and unlabored on RA, no visible distress noted
--- NOTE | 2019-08-05 18:57 | NUR ---
# 22 gauge angiocath placed to LFA. Use of asceptic technique. Opsite placed over site. Blood return noted. Blood for lab drawn from site. Flushed with 10 cc of normal saline. No evidence of infiltration noted. Patient tolerated well.
[2019-08-05] MEDS ORDERED: ASPIRIN 325 MG TABLET (ECOTRIN) PO ONE (19:00)
[2019-08-05] MEDS ORDERED: MORPHINE 4 MG/ML INJ. SYRINGE IVP ONE (19:00)
--- NOTE | 2019-08-05 19:00 | NUR ---
Dr Childs at bedside to assess pt
--- NOTE | 2019-08-05 19:15 | NUR ---
ua collected ans sent to the lab.
--- NOTE | 2019-08-05 19:20 | NUR ---
medicated the pt w/ MNorhoje 4mg IVp and Aspirin 325mg per MD order. Will reasess.
--- NOTE | 2019-08-05 19:28 | NUR ---
care endorsed to Isreal TIDWELL. Pt is in stable condition.
[2019-08-05 19:30] LABS: BASOPHILS % (AUTO) 0.5 % (0.0-2.0); EOSINOPHILS # (AUTO) 0.1 K/uL (0.0-0.4); EOSINOPHILS % (AUTO) 1.8 % (0.0-4.0); HEMATOCRIT 26.7 % (36-48); HEMOGLOBIN 8.2 g/dL (12.0-16.0); LYMPHOCYTES % (AUTO) 25.8 % (20.5-51.5); MEAN CORPUSCULAR HEMOGLOBIN 21 pg (27-31); MEAN CORPUSCULAR HGB CONC 31 % (32-36); MEAN CORPUSCULAR VOLUME 69 fL (79.0-98.0); MONOCYTES # (AUTO) 0.6 K/uL (0.0-1.0); MONOCYTES % (AUTO) 7.7 % (1.7-9.3); NEUTROPHILS # (AUTO) 5.1 K/uL (1.8-7.7); NEUTROPHILS % (AUTO) 64.2 % (40.0-70.0); PLATELET COUNT (AUTO) 357 K/uL (130-430); RED CELL DISTRIBUTION WIDTH 18.3 % (9.0-15.0); WHITE BLOOD COUNT (AUTO) 7.9 K/uL (4.8-10.8)
[2019-08-05 19:34] LABS: ANION GAP 10 (5-15); CALCIUM 8.5 mg/dL (8.4-11.0); CHLORIDE 107 mmol/L (98-107); CREATININE 0.75 mg/dL (0.55-1.30); GLUCOSE 83 mg/dL (70-99); POTASSIUM 3.9 mmol/L (3.5-5.1); SODIUM SERUM 141 mmol/L (136-145); UREA NITROGEN, BLOOD 22 mg/dL (8-21)
[2019-08-05 19:38] LABS: GFR AFRICAN AMERICAN 105 mL/min (>90)
[2019-08-05 19:41] LABS: BILIRUBIN,URINE NEGATIVE (NEGATIVE); BLOOD, URINE NEGATIVE (NEGATIVE); COLOR,URINE YELLOW (YELLOW); GLUCOSE,URINE NEGATIVE (NEGATIVE); KETONES,URINE NEGATIVE (NEGATIVE); LEUKOCYTE ESTERASE ,URINE NEGATIVE (NEGATIVE); NITRITE, URINE NEGATIVE (NEGATIVE); PROTEIN URINE NEGATIVE (NEGATIVE); UROBILINOGEN,URINE 0.2 (0.2-1.0)
[2019-08-05 19:43] LABS: ALANINE AMINOTRANSFERASE 58 U/L (12-78); ALBUMIN 3.5 g/dL (3.4-4.8); ASPARTATE AMINOTRANSFERASE 27 U/L (10-37); TOTAL BILIRUBIN 0.5 mg/dL (0.0-1.0)
[2019-08-05 19:48] LABS: CLARITY/URINE HAZY (CLEAR)
--- NOTE | 2019-08-05 21:42 | NUR ---
Pt resting at this time, VSS.
--- NOTE | 2019-08-05 22:10 | NUR ---
Medication reconciliation completed with information provided by patient . Any prior medication reconciliation on file was reviewed and corrected.
--- NOTE | 2019-08-05 22:41 | NUR ---
Admission Note Received patient from ER with diagnosis of chest pain. Initial Plan of Care discussed-patient verbalized understanding. Oriented to room, call light, pain management and safety.
--- NOTE | 2019-08-05 22:48 | NUR ---
Patient will be admitted to care of Dr Hudson . Admitted to Tele unit. Will go to room 135 . . Complete and up to date summary report printed. SBAR report to be given at bedside with opportunity for questions.
[2019-08-05 22:56] VITALS: BP_SYST 111
[2019-08-05] MEDS ORDERED: ACETAMINOPHEN 325 MG TABLET PO PRN (23:15)
--- NOTE | 2019-08-05 23:31 | NUR ---
Consultation Paged Reason for Consultation: Chest Pain Was consult called: Y Person who was notified: Laila Consulting Physician: Romulo Corado Post Doctoral Fellow Ordering Physician: Dr. Hudson
[2019-08-06] MEDS: MORPHINE 4 MG/ML INJ. SYRINGE IVP PRN ×3 (00:16→22:09)
--- NOTE | 2019-08-06 00:16 | NUR ---
PAIN/UA COLLECTED Patient complained of 7/10 chest pain, PRN medication administered. Patient assisted to bathroom to void and back to bed, patient tolerated well, verbalized feeling weak. UA sample collected at this time. All needs met. Call light with patient. Bed alarm on. Will continue to monitor.
--- NOTE | 2019-08-06 00:37 | NUR ---
Swallow Eval Consult Called and left a message for Tracy, regarding swallow eval, ordered by Dr. Hudson.
[2019-08-06 01:39] LABS: BILIRUBIN,URINE NEGATIVE (NEGATIVE); BLOOD, URINE NEGATIVE (NEGATIVE); CLARITY/URINE CLEAR (CLEAR); COLOR,URINE YELLOW (YELLOW); GLUCOSE,URINE NEGATIVE (NEGATIVE); KETONES,URINE TRACE (NEGATIVE); LEUKOCYTE ESTERASE ,URINE NEGATIVE (NEGATIVE); NITRITE, URINE NEGATIVE (NEGATIVE); PROTEIN URINE NEGATIVE (NEGATIVE); UROBILINOGEN,URINE 0.2 (0.2-1.0)
--- NOTE | 2019-08-06 02:30 | NUR ---
ROUNDS Patient in bed, eyes closed, appears to be asleep. No s/s of acute distress noted. Breathing is even and unlabored. Call light with patient. Bed alarm on. Will continue to monitor.
[2019-08-06 03:41] LABS: BASOPHILS % (AUTO) 0.5 % (0.0-2.0); EOSINOPHILS # (AUTO) 0.2 K/uL (0.0-0.4); EOSINOPHILS % (AUTO) 2.4 % (0.0-4.0); HEMATOCRIT 24.2 % (36-48); HEMOGLOBIN 7.5 g/dL (12.0-16.0); LYMPHOCYTES # (AUTO) 2.5 K/uL (1.0-5.5); LYMPHOCYTES % (AUTO) 32.9 % (20.5-51.5); MEAN CORPUSCULAR HEMOGLOBIN 21 pg (27-31); MEAN CORPUSCULAR HGB CONC 31 % (32-36); MEAN CORPUSCULAR VOLUME 69 fL (79.0-98.0); MONOCYTES # (AUTO) 0.6 K/uL (0.0-1.0); MONOCYTES % (AUTO) 8.4 % (1.7-9.3); NEUTROPHILS # (AUTO) 4.2 K/uL (1.8-7.7); NEUTROPHILS % (AUTO) 55.8 % (40.0-70.0); PLATELET COUNT (AUTO) 321 K/uL (130-430); RED BLOOD CELL COUNT(AUTO) 3.53 MIL/uL (4.2-6.2); RETICULOCYTE COUNT 2.5 % (0.5-1.5); WHITE BLOOD COUNT (AUTO) 7.6 K/uL (4.8-10.8)
[2019-08-06 03:59] LABS: ALBUMIN 3.1 g/dL (3.4-4.8); CALCIUM 7.6 mg/dL (8.4-11.0); CREATININE 0.64 mg/dL (0.55-1.30); POTASSIUM 3.5 mmol/L (3.5-5.1); TOTAL BILIRUBIN 0.5 mg/dL (0.0-1.0)
--- NOTE | 2019-08-06 04:11 | NUR ---
PAIN Patient complained of 7/10 chest pain. PRN medication administered. Call light with patient. Bed alarm on. Will continue to monitor.
[2019-08-06 04:22] LABS: TOTAL IRON BIND. CAPACITY 356 ug/dL (250-450)
[2019-08-06 04:31] LABS: FREE T4 (FREE THYROXINE) 0.9 ng/dL (0.6-1.6); THYROID STIMULATING HORMONE 2.94 uIu/mL (0.34-4.82)
[2019-08-06] MEDS ORDERED: FLU VACC QS2019-20 36MOS UP/PF 60 MCG/0.5 ML SYRINGE I.M. PRN (05:00)
--- NOTE | 2019-08-06 06:30 | NUR ---
CLOSING NOTES Patient in bed sleeping at this time. No s/s of acute distress noted. Breathing is even and unlabored. IV site is patent, no signs of infiltration or infection noted. All needs met throughout shift. Fall and safety precautions maintained throughout shift. Will continue to monitor until patient care is endorsed to oncoming dayshift nurse.
--- NOTE | 2019-08-06 07:25 | NUR ---
AM ROUNDS: BEDSIDE REPORT FROM NIGHT NURSE AUBREE.PATIENT ON SIDE LYING,NO OTHER MANIFESTATIONS NOTED. CALL LIGHT WITH IN REACH. BED LOCKED AT LOWEST POSITION. STABLE.
[2019-08-06 08:09] VITALS: BP_SYST 106
[2019-08-06 08:33] VITALS: BP_SYST 122
[2019-08-06] MEDS: PANTOPRAZOLE SODIUM 40 MG TAB PO SCH ×2 (08:37→20:39)
[2019-08-06] MEDS: GABAPENTIN 300 MG CAPSULE PO SCH ×3 (08:37→20:39)
[2019-08-06] MEDS: DULoxetine HCL 30 MG CAPSULE.DR (CYMBALTA) PO SCH (08:37)
[2019-08-06] MEDS: MODAFINIL 100 MG TABLET (PROVIGIL) PO SCH (08:37)
--- NOTE | 2019-08-06 09:35 | NUR ---
Brp with Assist: Student nurse assisted patient to the toilet using fww,voided then back to her bed.
[2019-08-06] MEDS: MORPHINE 2 MG/ML INJ. SYRINGE IVP PRN ×2 (10:19→17:56)
[2019-08-06 13:10] VITALS: BP_SYST 120
--- NOTE | 2019-08-06 14:22 | NUR ---
S.T. SWALLOW EVAL SWALLOW EVAL COMPLETED. PT PRESENTS W/ SUSPECTED PHARYNGOESOPHAGEAL DYSPHAGIA W/ C/O COUGHING WITH EATING AND FOOD NOT PASSING. NO S/S OF ASPIRATION NOTED DURING EVAL, BUT RISK PRESENT PER PT'S REPORT. REC: CONTINUE PUREE DIET. VFSS TOMORROW. NURSE FANG NOTIFIED. G8996 CK G8997 CK G8998 CK NOMS LEVEL 4
[2019-08-06] MEDS: ONDANSETRON HCL 4 MG/2 ML VIAL IVP PRN ×2 (15:47→22:04)
[2019-08-06] MEDS ORDERED: MULTIVITAMINS TAB 1 TABLET PO ONE (16:00)
--- NOTE | 2019-08-06 16:03 | NUR ---
IV NOTES: PATIENT C/O PAIN AT THE SITE,IV REMOVED,DRY GAUZE APPLIED,NO BLEEDING. IV RE SITED AT LEFT FOREARM USING G#22 SALINE LOCK.
[2019-08-06 16:18] VITALS: BP_SYST 127
[2019-08-06] MEDS: SOD FERRIC GLUC COMPLEX/SUC 125 MG in NS 100 ML IV SCH (17:42)
--- NOTE | 2019-08-06 17:43 | NUR ---
CONSULTATION PAGED REASON FOR CONSULTATION:DTSPHAGIA / IRON DEF ANEMIA WAS CONSULT CALLED?Y PERSON WHO WAS NOTIFIED:SYLVIA CONSULTING PHYSICIAN:ROBBIE REVELES [facility] SPECIALTY:GI [facility] PHONE NUMBER:[phone] REQUESTING PHYSICIAN:RISSA DALY
--- NOTE | 2019-08-06 18:12 | NUR ---
CLOSING NOTES: PATIENT COMFORTABLE THIS TIME. CALL LIGHT WITH IN REACH. BED LOCKED AT LOWEST POSITION. SAFETY MEASURES RENDERED. NO PROBLEM.
[2019-08-06] MEDS ORDERED: BISACODYL 5 MG TABLET.DR (DULCOLAX) PO ONE (19:30)
[2019-08-06] MEDS ORDERED: GOLYTELY / COLYTE SOLUTION 4 LITERS PO ONE (19:30)
[2019-08-06 20:00] VITALS: BP_SYST 133
--- NOTE | 2019-08-06 20:00 | NUR ---
Opening Note Received report from day shift RN, patient is resting in bed, no signs of acute distress, patient states she has no pain, even and unlabored breathing on room air, IV medication completed, flushed and saline locked left A/C IV, IV site patent and no signs of infiltration, walker at bedside, fall, safety, and aspiration precautions in place, bed locked and in lowest position, bed alarm on, two side rails up, call light with patient, will continue to monitor.
--- NOTE | 2019-08-06 20:10 | NUR ---
GI-Dr. Abebe Received call from Dr. Abebe, he stated he will put in orders for a colonoscopy and EDG in the am to evaluate patients anemia, will follow up.
[2019-08-06] MEDS: MULTIVITAMINS TAB 1 TABLET PO SCH (20:39)
[2019-08-06] MEDS: HYDROXYCHLOROQUINE SULFATE 200 MG TABLET PO SCH (20:39)
--- NOTE | 2019-08-06 22:10 | NUR ---
Medications Patient complains of nausea and pain 8/10 to bilateral arms and legs, administered PRN medication Zofran and morphine per MD order, educated patient on medications uses and potential side effects, educated on fall risk precautions, patient verbalized understanding, fall and safety precautions in place, call light with patient, will reassess patient.
--- NOTE | 2019-08-06 22:40 | NUR ---
Consent for EGD and Colonoscopy Patient is awake, alert and orientedx4, patient signed consent for EDG and colonoscopy, patient stated she recently had both procedures in January 2019 and in the past, patient stated she has no further questions or concerns at this time, and does not need to speak with the MD.
[2019-08-06] MEDS: ZOLPIDEM TARTRATE 5 MG TABLET PO SCH (23:56)
--- NOTE | 2019-08-06 23:56 | NUR ---
Ambien Medication Patient requested Ambien medication at this time, educated on uses and potential side effects, patient verbalized understanding, fall, safety, and aspiration precautions in place, call light with patient, will continue to monitor.
[2019-08-07] VITALS (7 sets, daily range): BP systolic 108–143
--- NOTE | 2019-08-07 00:15 | NUR ---
RN Rounds Assisted patient to bathroom and back to bed safely, bed locked and in lowest position, bed alarm not on, educated patient on bed alarm purposes, patient is ambulatory, patient verbalized she will call for assistance when going to the bathroom, fall and safety precautions in place, call light with patient, will continue to monitor.
--- NOTE | 2019-08-07 02:39 | NUR ---
RN Rounds Patient resting in bed, eyes closed, even and unlabored breathing on room air, no signs of distress at this time, IV site saline locked, fall and safety precautions in place, call light with patient, will continue to monitor.
--- NOTE | 2019-08-07 04:17 | NUR ---
RN Rounds Patient is currently resting in bed, eyes closed, no signs of acute distress at this time, even and unlabored breathing on room air, IV site saline locked, fall and safety precautions in place, call light with patient, will continue to monitor.
[2019-08-07 06:00] LABS: BASOPHILS % (AUTO) 0.6 % (0.0-2.0); EOSINOPHILS # (AUTO) 0.1 K/uL (0.0-0.4); HEMATOCRIT 22.7 % (36-48); LYMPHOCYTES % (AUTO) 28.5 % (20.5-51.5); MEAN CORPUSCULAR HEMOGLOBIN 21 pg (27-31); MEAN CORPUSCULAR HGB CONC 31 % (32-36); MEAN CORPUSCULAR VOLUME 69 fL (79.0-98.0); MONOCYTES # (AUTO) 0.6 K/uL (0.0-1.0); MONOCYTES % (AUTO) 9.1 % (1.7-9.3); NEUTROPHILS # (AUTO) 4.2 K/uL (1.8-7.7); NEUTROPHILS % (AUTO) 59.8 % (40.0-70.0); PLATELET COUNT (AUTO) 301 K/uL (130-430); RED BLOOD CELL COUNT(AUTO) 3.29 MIL/uL (4.2-6.2); WHITE BLOOD COUNT (AUTO) 7.1 K/uL (4.8-10.8)
--- NOTE | 2019-08-07 06:40 | NUR ---
Tap water enema Administered tap water enema per MD order, administered 500mL tap water x4, patient tolerated well, output is liquid dark brown with no solids, assisted patient with gretchen care, new gown and linens provided.
--- NOTE | 2019-08-07 06:55 | NUR ---
Critical Lab Value Received phone call from lab spoke with Melodie, notified me of patients 7.0 Hgb and 22.7 Hct, will notify .
[2019-08-07 06:58] LABS: PROTHROMBIN TIME 10.5 SECS (9.5-12.5)
[2019-08-07] MEDS ORDERED: MIDAZOLAM HCL 5 MG/5 ML VIAL ONE (06:58)
[2019-08-07] MEDS ORDERED: fentaNYL CITRATE/PF 100 MCG/2 ML AMP ONE (06:58)
[2019-08-07] MEDS ORDERED: SIMETHICONE 40 MG/0.6 ML ML ONE (06:59)
--- NOTE | 2019-08-07 07:00 | NUR ---
Critical Lab Value/ Dr. Mis Abebe at nurses station, notified him that patient's hgb this morning was 7.0, he ordered 1 unit of PRBCs for hgb of 7.0, per MD unit will be transfused in GI lab.
--- NOTE | 2019-08-07 07:05 | NUR ---
Closing Note Patient taken for EDG and colonoscopy procedures via wheelchair, patient shows no signs of acute distress, will endorse care to dayshift RN.
[2019-08-07] MEDS: MEPERIDINE HCL/PF 100 MG/ML AMP ONE ×4 (07:14→07:28)
[2019-08-07] MEDS: MIDAZOLAM HCL 5 MG/5 ML VIAL ONE ×5 (07:14→07:42)
--- NOTE | 2019-08-07 07:54 | NUR ---
AM ROUNDS: PATIENT NOT IN THE ROOM .PATIENT AT GI LAB FOR COLONOSCOPY AND EGD UNDER MODERATE SEDATION.
[2019-08-07] MEDS ORDERED: DIPHENHYDRAMINE INJ 50 MG/ML VIAL ONE (08:38)
--- NOTE | 2019-08-07 09:00 | NUR ---
Back from Gi Lab: Patient back from gi lab. routine vital signs taken,afebrile and stable. Patient awake ,alert and oriented x4. Patient can have full liquids as ordered by gi md and may advance diet if tolerated.
[2019-08-07] MEDS: MULTIVITAMINS TAB 1 TABLET PO SCH ×2 (09:23→21:45)
[2019-08-07] MEDS: PANTOPRAZOLE SODIUM 40 MG TAB PO SCH ×2 (09:23→21:45)
[2019-08-07] MEDS: MODAFINIL 100 MG TABLET (PROVIGIL) PO SCH (09:23)
[2019-08-07] MEDS: DULoxetine HCL 30 MG CAPSULE.DR (CYMBALTA) PO SCH (09:24)
[2019-08-07] MEDS: GABAPENTIN 300 MG CAPSULE PO SCH ×3 (09:24→21:46)
[2019-08-07] MEDS: MORPHINE 2 MG/ML INJ. SYRINGE IVP PRN (09:43)
--- NOTE | 2019-08-07 11:30 | NUR ---
F/U CALL TO BLOOD BANK; SPOKE WITH ANUPAM FROM BLOOD BANK ,BLOOD WAS NOT DRAWN UNTIL LATE THIS MORNING.
[2019-08-07] MEDS: MORPHINE 4 MG/ML INJ. SYRINGE IVP PRN ×2 (12:58→22:05)
[2019-08-07] MEDS ORDERED: BARIUM SULFATE 135 ML SUSP.RECON (E-Z-HD) PO ONE (13:33)
--- NOTE | 2019-08-07 14:41 | NUR ---
S.T. VIDEOFLUOROSCOPIC SWALLOW STUDY (VFSS) VFSS PERFORMED. PT PRESENTS W/ FUNCTIONAL OROPHARYNGEAL SWALLOW. NO RESIDUE AND NO ASPIRATION. [facility]. THIN LIQUIDS OK. DR. CENTENO AND NURSE IVIS NOTIFIED. PT IN AGREEMENT. G8996 CI G8997 CI G8998 CI NOMS LEVEL 6
--- NOTE | 2019-08-07 14:58 | NUR ---
CONSULT HEMATOLOGY ANEMIA DR GOMEZ [phone] S/W [facility] OFFICE
--- NOTE | 2019-08-07 16:50 | NUR ---
BT INITIATION: Consent signed per agreeing to administration of blood. Blood has been type and crossmatched. Blood sent from blood bank. Information on unit of blood checked against patient wristband at bedside by two nurses. All information matches. Patient or responsible libertarian informed of potential complications associated with blood transfusion. Informed of possible transfusion reaction symptoms. Aware of need to notify nurse at once of itching, shortness of breath, flushing, feeling of impending doom, or other symptoms not previously present. Vital signs taken within 5 minutes prior to initiation of transfusion. RN will remain with patient for first 15 minutes of transfusion at which time vital signs will be re-assessed.
--- NOTE | 2019-08-07 17:05 | NUR ---
REASSESSMENT OF BLOOD TRANSFUSION: AFTER 15MINS OF BLOOD TRANSFUSION.VITAL SIGNS TAKEN,AFEBRILE. STABLE. NO ALLERGIC REACTION NOTED THIS TIME.
--- NOTE | 2019-08-07 18:18 | NUR ---
PAGED I PAGED DR. CENTENO FOR MEDICATION ORDER
--- NOTE | 2019-08-07 18:24 | NUR ---
PAGED: SPOKE WITH DR CENTENO REGARDING PATIENT WANT ORAL PAIN MEDS,WITH ORDERS GIVE NORCO 10/325MG PO EVERY 4HOURS PRN FOR PAIN LEVEL 4-6.
--- NOTE | 2019-08-07 18:25 | NUR ---
NEW ORDER: SPOKE WITH DR CENTENO WITH ORDERS GIVE NORCO 10/325MG PO EVERY 4 HOURS NEEDED FOR PAIN LEVEL 4-6.
--- NOTE | 2019-08-07 18:28 | NUR ---
END OF SHIFT: BLOOD TRANSFUSION ON GOING. NO ALLERGIC REACTION NOTED. CALL LIGHT WITH IN REACH. BED LOCKED AT LOWEST POSITION. NO ACUTE DISTRESS.
--- NOTE | 2019-08-07 19:10 | NUR ---
NURSES NOTE: 191- received pt. awake on bed; alert and oriented x 4; on mechanical soft chopped with thin liquid diet as ordered; with ongoing 1 unit of packed RBC transfusing at 100 cc/hr via left arm; siderails x 2 are up; bed alarm is on; call light is within reach; awaiting for stool collection for occult blood
--- NOTE | 2019-08-07 20:08 | NUR ---
NURSES NOTE: 2007- unit packed RBC transfusion completely consumed and removed with no adverse reaction noted;
[2019-08-07] MEDS: SOD FERRIC GLUC COMPLEX/SUC 125 MG in NS 100 ML IV SCH (22:07)
[2019-08-07] MEDS: HYDROXYCHLOROQUINE SULFATE 200 MG TABLET PO SCH (22:07)
[2019-08-08] MEDS: ZOLPIDEM TARTRATE 5 MG TABLET PO SCH (00:41)
[2019-08-08 01:43] VITALS: BP_SYST 130
--- NOTE | 2019-08-08 06:00 | NUR ---
NURSES NOTE: - pt. is resting comfortably; will continue to monitor
[2019-08-08 06:19] LABS: BASOPHILS % (AUTO) 0.6 % (0.0-2.0); EOSINOPHILS # (AUTO) 0.2 K/uL (0.0-0.4); EOSINOPHILS % (AUTO) 3.4 % (0.0-4.0); HEMATOCRIT 25.6 % (36-48); HEMOGLOBIN 7.9 g/dL (12.0-16.0); LYMPHOCYTES # (AUTO) 2.4 K/uL (1.0-5.5); LYMPHOCYTES % (AUTO) 38.2 % (20.5-51.5); MEAN CORPUSCULAR HEMOGLOBIN 22 pg (27-31); MEAN CORPUSCULAR HGB CONC 31 % (32-36); MEAN CORPUSCULAR VOLUME 73 fL (79.0-98.0); MONOCYTES # (AUTO) 0.6 K/uL (0.0-1.0); MONOCYTES % (AUTO) 9.9 % (1.7-9.3); NEUTROPHILS % (AUTO) 47.9 % (40.0-70.0); PLATELET COUNT (AUTO) 284 K/uL (130-430); RED BLOOD CELL COUNT(AUTO) 3.52 MIL/uL (4.2-6.2); RED CELL DISTRIBUTION WIDTH 20.2 % (9.0-15.0); WHITE BLOOD COUNT (AUTO) 6.3 K/uL (4.8-10.8)
[2019-08-08 06:51] LABS: POTASSIUM 3.6 mmol/L (3.5-5.1)
[2019-08-08 06:52] LABS: CALCIUM 7.9 mg/dL (8.4-11.0); CREATININE 0.66 mg/dL (0.55-1.30)
[2019-08-08 08:00] VITALS: BP_SYST 129
[2019-08-08] MEDS: MULTIVITAMINS TAB 1 TABLET PO SCH ×2 (10:40→20:30)
[2019-08-08] MEDS: GABAPENTIN 300 MG CAPSULE PO SCH ×3 (10:40→20:30)
[2019-08-08] MEDS: PANTOPRAZOLE SODIUM 40 MG TAB PO SCH ×2 (10:40→20:29)
[2019-08-08] MEDS: DULoxetine HCL 30 MG CAPSULE.DR (CYMBALTA) PO SCH (10:40)
[2019-08-08] MEDS: MODAFINIL 100 MG TABLET (PROVIGIL) PO SCH (10:41)
[2019-08-08] MEDS: HYDROcodone/ACETAMIN 10-325 MG TAB PO PRN ×3 (10:50→23:42)
[2019-08-08 12:00] VITALS: BP_SYST 126
[2019-08-08] MEDS: MORPHINE 4 MG/ML INJ. SYRINGE IVP PRN (13:21)
--- NOTE | 2019-08-08 15:06 | NUR ---
Dietitian Recommendations * Recommend mechanical soft, chopped diet with Ensure Enlive BID (provides additional 700 kcal/day and 40 gm of protein/day) LP, RD Please refer to Nutrition Assessment for details. Signed: 08/08/19 at 1506 by lEizabeth ALBRECHT <Co-Signature Required> Co-Signed: 08/08/19 at [address] Addendum: 08/08/19 at 1508 by Elizabeth ALBRECHT Amended: Links added.
[2019-08-08 16:00] VITALS: BP_SYST 112
[2019-08-08] MEDS: SOD FERRIC GLUC COMPLEX/SUC 125 MG in NS 100 ML IV SCH (18:37)
--- NOTE | 2019-08-08 19:30 | NUR ---
CHANGE OF SHIFT; pt. awake, alert, sitting up in bed with mother at bedside. was just given pain medication before change of shift with chronic back pain. no acute distress. call light within reach.
[2019-08-08 20:15] VITALS: BP_SYST 142
--- NOTE | 2019-08-08 20:15 | NUR ---
NOTES: VS checked. pt. very conversant telling things happened to her. appears pale with low hemoglobin, no blood transfusion. IV lock on left forearm. moves all extremities, able to ambulate to restroom. instructed to call for help and use of call light.
[2019-08-08] MEDS: HYDROXYCHLOROQUINE SULFATE 200 MG TABLET PO SCH (21:27)
--- NOTE | 2019-08-08 22:00 | NUR ---
NOTES: pt. been dozing on and off. positioned self for comfort.
--- NOTE | 2019-08-08 23:42 | NUR ---
NOTES: pt. about to give IV Morphine, site infiltrated and pt. hurting, [place] po given instead. will try to insert another IV , pt. vein very small and thread like.
--- NOTE | 2019-08-09 00:10 | NUR ---
NOTES: able to insert gauge #24 via rt. upper arm, flushing good.
[2019-08-09 01:11] VITALS: BP_SYST 159
[2019-08-09] MEDS: MORPHINE 4 MG/ML INJ. SYRINGE IVP PRN ×3 (01:15→21:25)
--- NOTE | 2019-08-09 01:15 | NUR ---
NOTES: pt. called and still hurting on her spine and goes to her neck. IV Morphine given as ordered 05/08.
--- NOTE | 2019-08-09 01:39 | NUR ---
Follow up consult made to Dr. Garber, re: Anemia, ordered by Dr. Hudson
[2019-08-09] MEDS: ZOLPIDEM TARTRATE 5 MG TABLET PO SCH ×2 (02:12→23:33)
--- NOTE | 2019-08-09 02:15 | NUR ---
NOTES: pt. called and she wants a sleeping pill, noted some relief from IV Morphine. told pt. next time she needs to ask sleeping pill before midnite and verbalized understanding.
--- NOTE | 2019-08-09 03:00 | NUR ---
NOTES: pt. has not slept, asked for sandwich, got hungry. pt. rolando to ambulate in the nurses station to ask for more sandwich.
--- NOTE | 2019-08-09 06:00 | NUR ---
NOTES: condition unchanged. pt. sleeping at this time.
[2019-08-09 06:40] LABS: BASOPHILS # (AUTO) 0.1 K/uL (0.0-0.2); BASOPHILS % (AUTO) 0.7 % (0.0-2.0); EOSINOPHILS # (AUTO) 0.2 K/uL (0.0-0.4); HEMATOCRIT 26.4 % (36-48); HEMOGLOBIN 8.1 g/dL (12.0-16.0); LYMPHOCYTES # (AUTO) 2.8 K/uL (1.0-5.5); LYMPHOCYTES % (AUTO) 36.8 % (20.5-51.5); MEAN CORPUSCULAR HEMOGLOBIN 23 pg (27-31); MEAN CORPUSCULAR HGB CONC 31 % (32-36); MEAN CORPUSCULAR VOLUME 74 fL (79.0-98.0); MONOCYTES # (AUTO) 0.7 K/uL (0.0-1.0); MONOCYTES % (AUTO) 9.5 % (1.7-9.3); NEUTROPHILS # (AUTO) 3.7 K/uL (1.8-7.7); PLATELET COUNT (AUTO) 288 K/uL (130-430); RED BLOOD CELL COUNT(AUTO) 3.59 MIL/uL (4.2-6.2); RED CELL DISTRIBUTION WIDTH 21.2 % (9.0-15.0); WHITE BLOOD COUNT (AUTO) 7.5 K/uL (4.8-10.8)
--- NOTE | 2019-08-09 06:50 | NUR ---
CLOSING NOTES; still asleep, no acute distress. IV lock on rt. upper arm. needs attended. for furhte care and assist. call light within reach. will endorse to incoming shift.
[2019-08-09 06:51] LABS: CALCIUM 7.9 mg/dL (8.4-11.0); CREATININE 0.79 mg/dL (0.55-1.30); POTASSIUM 3.3 mmol/L (3.5-5.1)
--- NOTE | 2019-08-09 08:11 | NUR ---
RN INITIAL NOTES RECEIVED PATIENT IN BED NOT IN ANY DISTRESS NO DISTRESS VERBAL AND NO COMPLAIN OF PAIN A THIS TIME
[2019-08-09] MEDS: PANTOPRAZOLE SODIUM 40 MG TAB PO SCH ×2 (08:26→20:12)
[2019-08-09] MEDS: MODAFINIL 100 MG TABLET (PROVIGIL) PO SCH (08:26)
[2019-08-09] MEDS: GABAPENTIN 300 MG CAPSULE PO SCH ×3 (08:26→20:12)
[2019-08-09] MEDS: DULoxetine HCL 30 MG CAPSULE.DR (CYMBALTA) PO SCH (08:26)
[2019-08-09] MEDS: MULTIVITAMINS TAB 1 TABLET PO SCH ×2 (08:26→20:13)
[2019-08-09] MEDS: HYDROcodone/ACETAMIN 10-325 MG TAB PO PRN ×4 (08:37→23:38)
[2019-08-09 08:50] VITALS: BP_SYST 120
--- NOTE | 2019-08-09 09:59 | NUR ---
Nutrition Update Devon Scale 18 noted. Pt admitted for chest pain Diet: Mech Soft, Chopped with Ensure Enlive BID BMI: 35.9 kg/m2 RD to follow per nutrition care standards.
--- NOTE | 2019-08-09 10:08 | NUR ---
ROUNDS PATIENT ASLEEP DR HORN ORDERED FOR SCD, APPLIED AND TOERATED Addendum: 08/09/19 at 1009 by Mouna Kim RN SCD WRONG ENTRY NOT FOR THIS PATIENT
--- NOTE | 2019-08-09 10:09 | NUR ---
ROUNDS PATIENT SLEEPING HAD HER NORCO AWARE WILL STILL COLLECT STOOL
--- NOTE | 2019-08-09 12:00 | NUR ---
ROUNDS EATING HER LUNCH NO DISTRESS
[2019-08-09 12:21] VITALS: BP_SYST 114
--- NOTE | 2019-08-09 13:58 | NUR ---
[facility] TO SCHEDULE THE FERLICIT EARLIER THAN 1800
[2019-08-09 16:35] VITALS: BP_SYST 123
--- NOTE | 2019-08-09 17:00 | NUR ---
DR TARYN LAU INFORMED PATIENT [id number] AND PHLEBITIS TO LEFT FOREARM SWOLLEN , REDNESS AND WARM TO TOUCH IT HURT TOO WHEN TOUCH , PATIENT HAD THIS AREA PREVIOUSLY WITH IV OF IRON , ALTERNATE WARM AND COLD APPLIED IT RELEIVES FOR A WHILE THEN IV PAIN MEDS GIVEN WITH NORCO , DR CENTENO ORDERED WITH NEW IV ATB , WILL START ONCE PHARMACY VERIFIED AND DELIVERS
--- NOTE | 2019-08-09 18:06 | NUR ---
ENDORSEMENT WILL ENDORSED TO NEXT SHIFT CONT CARE, PATIENT ALERT AWAKE AND NEW IV ACCESS TO RT FOREARM, WILL START DOXYCYCLINE IV ATB ONCE PHARMACY DELIVERS, WILL CONT PAIN MGT , PATIENT STATED THAT PREVIOUS IV SITES HURT SO MUCH, WILL CONT CARE, SAFETY ADVISED
[2019-08-09] MEDS ORDERED: DOXYCYCLINE HYCLATE 100 MG in D5W 100 ML IV ONE (19:15)
--- NOTE | 2019-08-09 19:25 | NUR ---
CHANGE OF SHIFT; pt. awake, alert, sitting up in bed, was just given pain med and already asking when is her next pain med, pt. worry too much, provide reassurance. call light at bedside.
[2019-08-09 20:00] VITALS: BP_SYST 135
--- NOTE | 2019-08-09 20:00 | NUR ---
NOTES: 'VS checked, due for IV antibiotic, IV site on rt. forearm. left arm tender and painful, appears red due to IV infiltration, ice pack applied and keep elevated. able to move all extremities. reminded to use call light for help. pt. has periods of crying.
--- NOTE | 2019-08-09 21:25 | NUR ---
NOTES: pt. medicated with IV Morphine for c/o left arm pain, continuous ice pack. pt. needs attended.
[2019-08-09] MEDS: HYDROXYCHLOROQUINE SULFATE 200 MG TABLET PO SCH (21:27)
--- NOTE | 2019-08-09 22:30 | NUR ---
NOTES; noted some relief but keeps talking to her family on her cellphone. advised to relax and get some rest.
--- NOTE | 2019-08-09 23:40 | NUR ---
NOTES: pt. ambulated to the restroom, stand by and medicated with [place] tab for c/o left arm pain and her back and sleeping pill also given per pt. request. ice pack on left arm. pt. needs attended. call light within reach.
[2019-08-09 23:58] VITALS: BP_SYST 132
--- NOTE | 2019-08-10 01:25 | NUR ---
NOTES: pt. transferred to rm 124 via bed and pt. agreed.
--- NOTE | 2019-08-10 01:57 | NUR ---
NOTES: pt. up and ambulated to the restroom.
--- NOTE | 2019-08-10 03:02 | NUR ---
NOTES: made rounds and pt. sleeping, no acute distress. continue to monitor.
--- NOTE | 2019-08-10 05:00 | NUR ---
NOTES: condition unchanged. sleeping when checked. continue to monitor.
--- NOTE | 2019-08-10 06:37 | NUR ---
CLOSING NOTES; pt. awakened, feeling fine, does not need pain med at this time. for further care and assist. call light within reach.
--- NOTE | 2019-08-10 08:00 | NUR ---
RN INITIAL NOTES [id number] PATIENT AWAKE NOT IN ANY DISTRESS RES EVEN AND UNLABORED , PATIENT STATED SHE WANTS HER PAIN MEDS LATER,STILL WITH REDNESS TO LEFT FOREARM , WILL HAVE IV ATB LATER
[2019-08-10] MEDS: DULoxetine HCL 30 MG CAPSULE.DR (CYMBALTA) PO SCH (08:24)
[2019-08-10] MEDS: HYDROcodone/ACETAMIN 10-325 MG TAB PO PRN ×3 (08:24→21:41)
[2019-08-10] MEDS: GABAPENTIN 300 MG CAPSULE PO SCH ×3 (08:24→19:56)
[2019-08-10] MEDS: MULTIVITAMINS TAB 1 TABLET PO SCH ×2 (08:24→19:56)
[2019-08-10] MEDS: PANTOPRAZOLE SODIUM 40 MG TAB PO SCH ×2 (08:24→19:56)
[2019-08-10] MEDS: DOXYCYCLINE HYCLATE 100 MG in D5W 100 ML IV SCH ×2 (08:27→19:56)
--- NOTE | 2019-08-10 10:00 | NUR ---
ROUNDS PAIN MEDS GIVEN TOLERATING IV ATB, STILL WITH LEFT HAND SWELLING AND REDNESS
[2019-08-10 11:34] LABS: EOSINOPHILS # (AUTO) 0.2 K/uL (0.0-0.4); HEMOGLOBIN 9.4 g/dL (12.0-16.0); MEAN CORPUSCULAR HEMOGLOBIN 23 pg (27-31); MONOCYTES % (AUTO) 12.2 % (1.7-9.3)
[2019-08-10 11:36] LABS: BASOPHILS % (AUTO) 0.4 % (0.0-2.0); EOSINOPHILS % (AUTO) 2.3 % (0.0-4.0); LYMPHOCYTES # (AUTO) 2.2 K/uL (1.0-5.5); LYMPHOCYTES % (AUTO) 26.5 % (20.5-51.5); MEAN CORPUSCULAR HGB CONC 31 % (32-36); MEAN CORPUSCULAR VOLUME 75 fL (79.0-98.0); NEUTROPHILS # (AUTO) 4.9 K/uL (1.8-7.7); NEUTROPHILS % (AUTO) 58.6 % (40.0-70.0); PLATELET COUNT (AUTO) 334 K/uL (130-430); RED BLOOD CELL COUNT(AUTO) 4.02 MIL/uL (4.2-6.2); WHITE BLOOD COUNT (AUTO) 8.3 K/uL (4.8-10.8)
[2019-08-10 11:46] LABS: CALCIUM 8.3 mg/dL (8.4-11.0); CREATININE 0.76 mg/dL (0.55-1.30); POTASSIUM 3.9 mmol/L (3.5-5.1)
--- NOTE | 2019-08-10 12:00 | NUR ---
ROUNDS EATING HER LUNCH, NO DISTRESS
[2019-08-10] MEDS: MORPHINE 4 MG/ML INJ. SYRINGE IVP PRN ×2 (12:29→19:55)
[2019-08-10 12:30] VITALS: BP_SYST 130
--- NOTE | 2019-08-10 14:00 | NUR ---
DR KAYLIE SPENCER MD CAME INFORMED HARINI CORBETT BY DR CENTENO YESJYOTI D/T PHLEBETIS TO LEFT FOREARM
[2019-08-10 16:20] VITALS: BP_SYST 121
--- NOTE | 2019-08-10 17:56 | NUR ---
ENDORSEMENT WILL CONT CARE [facility] FOR PAIN NEEDS ATTENDED PATIENT AMBULATES IN THE [address] Addendum: 08/10/19 at 1901 by Mouna Kim RN PATIENT NO DISTRESS AT THIS TIME FOR DC PLANNING IN AM ,
--- NOTE | 2019-08-10 19:20 | NUR ---
Opening Note Received care of pt and sbar report from day shift RN. patient is AAOx4, resting in bed, no signs of acute distress. patient reporting that she has pain to her left arm. pt breathing is even and unlabored breathing on room air. IV is to the right forearm and is saline locked, IV site patent and no signs of infiltration. walker at bedside, fall, safety, and aspiration precautions in place, bed locked and in lowest position, bed alarm on, two side rails up, call light with patient, will continue to monitor.
[2019-08-10 20:00] VITALS: BP_SYST 136
--- NOTE | 2019-08-10 20:00 | NUR ---
DR. CENTENO ROUNDS/MORPHINE DR. CENTENO AT BEDSIDE, PT SEEN AND POC DISCUSSED. MORPHINE GIVEN FOR SEVERE PAIN ORDERED PRN. MEDICATION AND POTENTIAL SIDE EFFECTS DISCUSSED WITH PT. WARM COMPRESS PUT ON PT'S LEFT ARM. SAFETY MAINTAINED. WILL MONITOR.
[2019-08-10] MEDS ORDERED: SOD FERRIC GLUC COMPLEX/SUC 62.5 MG/5 ML VIAL (FERRLECIT) IV ONE (21:21)
[2019-08-10] MEDS: HYDROXYCHLOROQUINE SULFATE 200 MG TABLET PO SCH (21:41)
[2019-08-10] MEDS: SOD FERRIC GLUC COMPLEX/SUC 125 MG in NS 100 ML IV SCH (21:43)
[2019-08-10] MEDS: ZOLPIDEM TARTRATE 5 MG TABLET PO SCH (22:35)
--- NOTE | 2019-08-10 22:35 | NUR ---
JOELIEN PT GIVEN JOELIEN PER REQUEST FOR INSOMNIA ORDERED PRN. MEDICATION DISCUSSED, PT VERBALIZED UNDERSTANDING. SAFETY MAINTAINED. WILL MONITOR.
[2019-08-11] MEDS: MORPHINE 4 MG/ML INJ. SYRINGE IVP PRN ×3 (00:24→14:56)
--- NOTE | 2019-08-11 00:24 | NUR ---
PAIN/SNACKS PT GIVEN MORPHINE PRN FOR SEVERE PAIN. PT BROUGHT SANDWICH AND PUDDING PER REQUEST. PT SITTING UP IN BED EATING AND TALKING TO HER ROOMMATE. PT DENIES FURTHER NEEDS AT THIS TIME. WILL MONITOR.
[2019-08-11 01:00] VITALS: BP_SYST 122
--- NOTE | 2019-08-11 02:05 | NUR ---
RESTING PT RESTING IN BED, NO S/S OF ACUTE DISTRESS, BREATHING IS UNLABORED TO ROOM AIR. SAFETY PRECAUTIONS IN PLACE. WILL MONITOR.
--- NOTE | 2019-08-11 04:00 | NUR ---
SLEEPING PT RESTING IN BED, NO S/S OF ACUTE DISTRESS, BREATHING IS UNLABORED TO ROOM AIR. SAFETY PRECAUTIONS IN PLACE. WILL MONITOR.
--- NOTE | 2019-08-11 06:06 | NUR ---
PAIN/MORPHINE PT GIVEN MORPHINE FOR SEVERE PAIN ORDERED PRN. PT NOW RESTING IN BED WITH NO S/S OF ACUTE DISTRESS. WILL MONITOR.
[2019-08-11 07:07] LABS: BASOPHILS % (AUTO) 0.5 % (0.0-2.0); EOSINOPHILS # (AUTO) 0.2 K/uL (0.0-0.4); EOSINOPHILS % (AUTO) 2.3 % (0.0-4.0); HEMATOCRIT 29.9 % (36-48); HEMOGLOBIN 9.3 g/dL (12.0-16.0); LYMPHOCYTES # (AUTO) 2.4 K/uL (1.0-5.5); LYMPHOCYTES % (AUTO) 30.2 % (20.5-51.5); MEAN CORPUSCULAR HEMOGLOBIN 24 pg (27-31); MEAN CORPUSCULAR HGB CONC 31 % (32-36); MEAN CORPUSCULAR VOLUME 75 fL (79.0-98.0); MONOCYTES # (AUTO) 0.9 K/uL (0.0-1.0); MONOCYTES % (AUTO) 11.5 % (1.7-9.3); NEUTROPHILS # (AUTO) 4.5 K/uL (1.8-7.7); NEUTROPHILS % (AUTO) 55.5 % (40.0-70.0); PLATELET COUNT (AUTO) 323 K/uL (130-430); RED BLOOD CELL COUNT(AUTO) 3.96 MIL/uL (4.2-6.2); RED CELL DISTRIBUTION WIDTH 21.9 % (9.0-15.0); WHITE BLOOD COUNT (AUTO) 8.1 K/uL (4.8-10.8)
[2019-08-11 07:20] LABS: CALCIUM 8.7 mg/dL (8.4-11.0); CREATININE 0.73 mg/dL (0.55-1.30); POTASSIUM 3.4 mmol/L (3.5-5.1)
--- NOTE | 2019-08-11 07:32 | NUR ---
CLOSING NOTE PT RESTING IN BED, APPEARS COMFORTABLE IN NO S/S OF ACUTE DISTRESS, BREATHING IS UNLABORED. SAFETY MAINTAINED. CARE ENDORSED TO DAY SHIFT RN.
--- NOTE | 2019-08-11 07:35 | NUR ---
Opening note Patient resting in bed A/Ox4, no complaints of pain. No SOB. On safety and aspiration precautions, HOb kept elevated, 3 side rails up, call light within reach. Patient in stable condition. Will continue to Monitor.
[2019-08-11 08:00] VITALS: BP_SYST 122
[2019-08-11] MEDS: PANTOPRAZOLE SODIUM 40 MG TAB PO SCH ×2 (08:38→21:53)
[2019-08-11] MEDS: DULoxetine HCL 30 MG CAPSULE.DR (CYMBALTA) PO SCH (08:39)
[2019-08-11] MEDS: GABAPENTIN 300 MG CAPSULE PO SCH ×3 (08:39→21:54)
[2019-08-11] MEDS: MULTIVITAMINS TAB 1 TABLET PO SCH ×2 (08:39→21:53)
[2019-08-11] MEDS: HYDROcodone/ACETAMIN 10-325 MG TAB PO PRN ×3 (08:40→19:59)
[2019-08-11] MEDS: DOXYCYCLINE HYCLATE 100 MG in D5W 100 ML IV SCH ×2 (08:40→21:53)
--- NOTE | 2019-08-11 09:00 | NUR ---
Medications All morning medications given as ordered. pain medication given as ordered. no adverse side effects. reminded patient about need for stool sample. patient verbalized understanding.
--- NOTE | 2019-08-11 11:39 | NUR ---
Ambulating Patient ambulated from bed to hallway and back to bed withi steady gait. patient in stable condition. no other needs at this time.
--- NOTE | 2019-08-11 12:02 | NUR ---
PAGED DR CENTENO FOR TEST RESULTS
[2019-08-11 12:24] VITALS: BP_SYST 154
[2019-08-11] MEDS ORDERED: SOD FERRIC GLUC COMPLEX/SUC 125 MG in NS 100 ML IV ONE (12:30)
--- NOTE | 2019-08-11 13:30 | NUR ---
Lunch patient sitting up in bed at this time, eating lunch, tolerating well. No nausea, no vomiting.
--- NOTE | 2019-08-11 15:00 | NUR ---
Pain Patient complaining of pain, requesting medication. PRN medication given as ordered. No adverse side effects noted. patient in stable condition.
[2019-08-11] MEDS ORDERED: POTASSIUM CHLORIDE 20 MEQ TAB.PRT.SR PO ONE (15:15)
[2019-08-11] MEDS ORDERED: DOCUSATE SODIUM 250 MG CAPSULE PO ONE (16:00)
[2019-08-11] MEDS ORDERED: BISACODYL 5 MG TABLET.DR (DULCOLAX) PO PRN (16:00)
[2019-08-11] MEDS ORDERED: BISACODYL 10 MG/SUPPOSITORY RC PRN (16:00)
[2019-08-11 16:54] VITALS: BP_SYST 148
--- NOTE | 2019-08-11 17:10 | NUR ---
rounds Patient ambulating inside room. No complaints of pain at this time. No SOB. Patient in stable condition. No other needs at this time.
--- NOTE | 2019-08-11 18:28 | NUR ---
Closing note Patient resting in bed A/Ox4, no complaints of pain. No SOB. IV patent, intact. No SOB. On safety and aspiration precautions, HOb kept elevated, 3 side rails up, call light within reach. Patient in stable condition. All needs met.
--- NOTE | 2019-08-11 19:59 | NUR ---
Opening Note Received report from wilma RN, patient AA&Ox4, patient complains on pain 6/10 to bilateral upper extremities, administered PRN pain medication [place] per MD order, educated on uses and potential side effects, patient verbalized understanding, patient's IV to right AC 22g is saline locked, safety, fall, and aspiration precautions in place, bed locked and in lowest position, bed alarm not on, educated on bed alarm and patient verbalized that she would use her call light for assistance out of bed, two side rails up, call light with patient, will continue to monitor.
[2019-08-11 20:00] VITALS: BP_SYST 142
[2019-08-11] MEDS: DOCUSATE SODIUM 250 MG CAPSULE PO SCH (21:00)
[2019-08-11] MEDS ORDERED: SOD FERRIC GLUC COMPLEX/SUC 62.5 MG/5 ML VIAL (FERRLECIT) IV ONE (21:16)
[2019-08-11] MEDS: SOD FERRIC GLUC COMPLEX/SUC 125 MG in NS 100 ML IV SCH (21:46)
[2019-08-11] MEDS: ZOLPIDEM TARTRATE 5 MG TABLET PO SCH (21:53)
--- NOTE | 2019-08-11 21:59 | NUR ---
Med pass: Scheduled medications administered at this time per MD order. Patient refused Colace despite education. Dulcolax 10 MG administered per patient request for constipation. Ambien 10 MG administered per patient request for insomnia. Education provided regarding indications and side effects of all medication, patient verbalized understanding. Call light with patient. Safety, fall precautions in place. Will continue to monitor.
[2019-08-11] MEDS: HYDROXYCHLOROQUINE SULFATE 200 MG TABLET PO SCH (22:05)
--- NOTE | 2019-08-12 | NUR ---
RN Rounds Patient resting in bed, awake, applied warm compress to left upper extremity per patient's request, patient's breathing is even and unlabored on room air, safety, fall, and aspiration precautions in place, bed locked and in lowest position, call light with patient, will continue to monitor.
[2019-08-12 00:30] VITALS: BP_SYST 144
[2019-08-12] MEDS: HYDROcodone/ACETAMIN 10-325 MG TAB PO PRN ×4 (03:35→18:17)
--- NOTE | 2019-08-12 03:35 | NUR ---
Pain: Patient is awake, complaining of moderate pain to bilateral arms. [place] 10-325 1 tab indicated. Education provided regarding indications, side effects. Patient verbalized understanding. Medication administered per MD order. Call light is with patient. Safety and fall precautions in place. Will continue to monitor.
--- NOTE | 2019-08-12 06:35 | NUR ---
Closing Note Patient resting in bed, eyes closed, even and unlabored breathing on room air, no signs of acute distress, patient's IV to right AC 22g is saline locked, safety, fall, and aspiration precautions in place, bed locked and in lowest position, two side rails up, call light with patient, all needs met, will endorse report to dayshift RN.
--- NOTE | 2019-08-12 07:30 | NUR ---
Opening note Patient resting in bed A/Ox4, no complaints of pain. No SOB. IV patent, intact. No infiltration noted. On safety and aspiration precautions, HOb kept elevated, 3 side rails up, call light within reach. Patient in stable condition. Will continue to Monitor.
[2019-08-12 07:34] LABS: BASOPHILS % (AUTO) 0.4 % (0.0-2.0); EOSINOPHILS # (AUTO) 0.2 K/uL (0.0-0.4); EOSINOPHILS % (AUTO) 3.1 % (0.0-4.0); HEMATOCRIT 28.7 % (36-48); HEMOGLOBIN 8.9 g/dL (12.0-16.0); LYMPHOCYTES # (AUTO) 2.2 K/uL (1.0-5.5); LYMPHOCYTES % (AUTO) 30.3 % (20.5-51.5); MEAN CORPUSCULAR HEMOGLOBIN 23 pg (27-31); MEAN CORPUSCULAR HGB CONC 31 % (32-36); MEAN CORPUSCULAR VOLUME 75 fL (79.0-98.0); MONOCYTES # (AUTO) 0.7 K/uL (0.0-1.0); NEUTROPHILS % (AUTO) 56.2 % (40.0-70.0); PLATELET COUNT (AUTO) 273 K/uL (130-430); RED BLOOD CELL COUNT(AUTO) 3.81 MIL/uL (4.2-6.2); RED CELL DISTRIBUTION WIDTH 23.1 % (9.0-15.0); WHITE BLOOD COUNT (AUTO) 7.2 K/uL (4.8-10.8)
[2019-08-12 08:00] VITALS: BP_SYST 115
[2019-08-12 08:19] LABS: CALCIUM 8.7 mg/dL (8.4-11.0); CREATININE 0.75 mg/dL (0.55-1.30); POTASSIUM 3.5 mmol/L (3.5-5.1)
[2019-08-12] MEDS: GABAPENTIN 300 MG CAPSULE PO SCH ×2 (09:05→14:08)
[2019-08-12] MEDS: DOCUSATE SODIUM 250 MG CAPSULE PO SCH (09:05)
[2019-08-12] MEDS: DULoxetine HCL 30 MG CAPSULE.DR (CYMBALTA) PO SCH (09:05)
[2019-08-12] MEDS: MULTIVITAMINS TAB 1 TABLET PO SCH (09:05)
[2019-08-12] MEDS: PANTOPRAZOLE SODIUM 40 MG TAB PO SCH (09:05)
[2019-08-12] MEDS: DOXYCYCLINE HYCLATE 100 MG in D5W 100 ML IV SCH (09:09)
--- NOTE | 2019-08-12 09:15 | NUR ---
Medications All morning medications given as ordered. pain medication given as ordered. no adverse side effects. Reminded patient about need for stool sample. patient verbalized understanding. Stool softener given.
--- NOTE | 2019-08-12 11:30 | NUR ---
rounds Patient resting in bed at this time, no complaints of pain. refilled water pitcher, linens changed. No other needs at this time.
[2019-08-12 12:00] VITALS: BP_SYST 142
--- NOTE | 2019-08-12 13:30 | NUR ---
Lunch patient sitting up in bed at this time, eating lunch, no nausea, no vomiting noted. no complaints of abdominal pain.
--- NOTE | 2019-08-12 15:00 | NUR ---
bowel movement patient noted with 1 BM, collected and sent to lab. No other needs at this time.
[2019-08-12] MEDS ORDERED: DOXY100T2 PO (15:38)
[2019-08-12] MEDS ORDERED: ONDA4TAB5 PO (15:51)
[2019-08-12 16:00] VITALS: BP_SYST 146
[2019-08-12 16:27] VITALS: BP_SYST 132
--- NOTE | 2019-08-12 17:27 | NUR ---
Rounds Discharge instruction given, prescriptions given. patient verbalized understanding. No complaints of pain at this time. Patient in stable condition.
--- NOTE | 2019-08-12 18:40 | NUR ---
D/C Patient Patient given medication reconciliation form and D/C instructions. Exit Care provided. Patient verbalized understanding. MD discussed with patient the results and treatment provided. Ambulatory with steady gait for discharge to home. Patient in stable condition, ID band removed. IV catheter removed, intact and dressing applied, no active bleeding. Rx of norco, colace,and doxycycline given. Patient educated on pain management. All belongings sent with patient.
== END 2019-08-12 18:36 | disposition home or self-care (01) | DRG 254 ==
LOC: SED 18:28 → STU 22:31 → SMU 08-06 19:28
PROVIDERS: ADMIT Internal Medicine; ATTEND Internal Medicine
PROC: 0DB98ZX Excision of Duodenum, Via Natural or Artificial Opening Endoscopic, Diagnostic (ICD-10-PCS; 2019-08-07)
PROC: 30233N1 Transfusion of Nonautologous Red Blood Cells into Peripheral Vein, Percutaneous Approach (ICD-10-PCS; principal; 2019-08-07 07:15)
PROC: 0DJD8ZZ Inspection of Lower Intestinal Tract, Via Natural or Artificial Opening Endoscopic (ICD-10-PCS; 2019-08-07 07:15)
DX: K44.9 Diaphragmatic hernia without obstruction or gangrene (principal); M32.9 Systemic lupus erythematosus, unspecified; K62.6 Ulcer of anus and rectum; E66.01 Morbid (severe) obesity due to excess calories; I80.8 Phlebitis and thrombophlebitis of other sites; D50.9 Iron deficiency anemia, unspecified; R13.10 Dysphagia, unspecified; K20.9 Esophagitis, unspecified; D63.8 Anemia in other chronic diseases classified elsewhere; M79.7 Fibromyalgia; M06.9 Rheumatoid arthritis, unspecified; K64.4 Residual hemorrhoidal skin tags; F32.9 Major depressive disorder, single episode, unspecified; D50.0 Iron deficiency anemia secondary to blood loss (chronic); F41.9 Anxiety disorder, unspecified; E87.6 Hypokalemia; G89.4 Chronic pain syndrome; Z82.61 Family history of arthritis; Z87.891 Personal history of nicotine dependence; Z68.35 Body mass index [BMI] 35.0-35.9, adult; Z79.899 Other long term (current) drug therapy; Z56.0 Unemployment, unspecified
CPT/HCPCS: 36415; 43239; 45380; 71045; 74230; 80048; 80053; 80061; 81003; 82272; 82607; 83540-TC; 83550-TC; 83690-TC; 83735-TC; 84439; 84443-TC; 84484; 84703; 85025; 85044-TC; 85379; 85610-TC; 86886; 86900; 86901; 86920; 88305; 88313; 92610-GN; 92611-GN; 93005; 93306; 93971; 96374; 99285; G0378; J1200; J2175; J2250; J2270; J2405; J2916; J3010; J3490; J7060; P9021

== ENCOUNTER 2019-12-11 16:48 | Emergency (ER) | payer OTHER ==
[~2019-12-11 16:48] MED LIST changes: +DOXY100T2 PO; +ONDA4TAB5 PO
[2019-12-11 17:47] LABS: BASOPHILS % (AUTO) 0.4 % (0.0-2.0); EOSINOPHILS # (AUTO) 0.1 K/uL (0.0-0.4); EOSINOPHILS % (AUTO) 0.8 % (0.0-4.0); HEMATOCRIT 35.1 % (36-48); HEMOGLOBIN 11.5 g/dL (12.0-16.0); LYMPHOCYTES # (AUTO) 2.3 K/uL (1.0-5.5); LYMPHOCYTES % (AUTO) 28.6 % (20.5-51.5); MEAN CORPUSCULAR HEMOGLOBIN 27 pg (27-31); MEAN CORPUSCULAR HGB CONC 33 % (32-36); MEAN CORPUSCULAR VOLUME 81 fL (79.0-98.0); MONOCYTES # (AUTO) 0.6 K/uL (0.0-1.0); MONOCYTES % (AUTO) 7.6 % (1.7-9.3); NEUTROPHILS % (AUTO) 62.6 % (40.0-70.0); PLATELET COUNT (AUTO) 302 K/uL (130-430); RED BLOOD CELL COUNT(AUTO) 4.33 MIL/uL (4.2-6.2); RED CELL DISTRIBUTION WIDTH 15.6 % (9.0-15.0)
[2019-12-11 18:23] LABS: CALCIUM 8.6 mg/dL (8.4-11.0); CREATININE 1.13 mg/dL (0.55-1.30)
[2019-12-11] MEDS ORDERED: ACETAMINOPHEN 500 MG TABLET PO ONE (18:30)
[2019-12-11 18:33] LABS: TOTAL BILIRUBIN 0.5 mg/dL (0.0-1.0)
[2019-12-11 18:34] LABS: ALBUMIN 3.8 g/dL (3.4-4.8)
[2019-12-11 19:06] LABS: BILIRUBIN,URINE NEGATIVE (NEGATIVE); BLOOD, URINE NEGATIVE (NEGATIVE); COLOR,URINE YELLOW (YELLOW); GLUCOSE,URINE NEGATIVE (NEGATIVE); KETONES,URINE NEGATIVE (NEGATIVE); LEUKOCYTE ESTERASE ,URINE NEGATIVE (NEGATIVE); NITRITE, URINE NEGATIVE (NEGATIVE); PROTEIN URINE NEGATIVE (NEGATIVE); UROBILINOGEN,URINE 0.2 (0.2-1.0)
[2019-12-11 19:16] LABS: CLARITY/URINE SLIGHTLY HAZY (CLEAR)
[2019-12-11 19:27] VITALS: BP_SYST 116
== END 2019-12-11 19:27 | disposition home or self-care (01) ==
LOC: SED 16:48
DX: R53.1 Weakness (principal); M06.9 Rheumatoid arthritis, unspecified; Z79.899 Other long term (current) drug therapy; Z86.2 Personal history of diseases of the blood and blood-forming organs and certain disorders involving the immune mechanism
CPT/HCPCS: 36415; 71045; 80053; 81003; 85025; 86886; 86900; 86901; 99284

== ENCOUNTER 2020-01-19 14:46 | Emergency (ER) | payer OTHER ==
[~2020-01-19] VITALS: Ht 162.6 cm; Wt 90.7 kg
[2020-01-19 14:46] VITALS: BP_SYST 116
--- NOTE | 2020-01-19 14:46 | NUR ---
BROUGHT BACK TO BED #8 AND TRIAGED. REPORT GIVEN TO KATY
--- NOTE | 2020-01-19 14:50 | NUR ---
Patient arrived via POV, AAOx4, and ambulatory from wheelchair to [facility]. Patient c/c of shortness of breathe. Onset was on night and worsening since. Vaginal bleeding onset yesterday. Changing saturated pads q2h. Patient states she suffers from Lupus, history of clots to arms, and anemia. Patient states she monitors her vital signs at home and recorded a high pulse rate. Patient states she feels like she is having anxiety, causing her to take deep breaths and pain is between shoulder blades. Will continue to follow up and monitor.
--- NOTE | 2020-01-19 14:52 | NUR ---
ER at bedside examining patient.
--- NOTE | 2020-01-19 15:15 | NUR ---
# 22 gauge angiocath placed to left hand. Use of asceptic technique. Opsite placed over site. Blood return noted. Blood unable to be drawn from site. Flushed with 10 cc of normal saline. No evidence of infiltration noted. Patient tolerated well.
--- NOTE | 2020-01-19 15:22 | NUR ---
XR at bedside for exam. Will continue to follow up.
--- NOTE | 2020-01-19 15:24 | NUR ---
Lab at bedside for draw. Will continue to follow up.
[2020-01-19 15:54] LABS: BASOPHILS # (AUTO) 0.3 K/uL (0.0-0.2); BASOPHILS % (AUTO) 3.8 % (0.0-2.0); EOSINOPHILS % (AUTO) 0.4 % (0.0-4.0); HEMATOCRIT 30.3 % (36-48); HEMOGLOBIN 9.6 g/dL (12.0-16.0); LYMPHOCYTES # (AUTO) 1.6 K/uL (1.0-5.5); LYMPHOCYTES % (AUTO) 18.2 % (20.5-51.5); MEAN CORPUSCULAR HEMOGLOBIN 25 pg (27-31); MEAN CORPUSCULAR HGB CONC 32 % (32-36); MEAN CORPUSCULAR VOLUME 79 fL (79.0-98.0); MONOCYTES # (AUTO) 0.4 K/uL (0.0-1.0); MONOCYTES % (AUTO) 4.7 % (1.7-9.3); NEUTROPHILS # (AUTO) 6.3 K/uL (1.8-7.7); NEUTROPHILS % (AUTO) 72.9 % (40.0-70.0); PLATELET COUNT (AUTO) 337 K/uL (130-430); RED BLOOD CELL COUNT(AUTO) 3.83 MIL/uL (4.2-6.2); RED CELL DISTRIBUTION WIDTH 15.7 % (9.0-15.0); WHITE BLOOD COUNT (AUTO) 8.6 K/uL (4.8-10.8)
[2020-01-19 16:02] LABS: CALCIUM 8.7 mg/dL (8.4-11.0); CREATININE 1.18 mg/dL (0.55-1.30); POTASSIUM 3.3 mmol/L (3.5-5.1)
[2020-01-19 16:07] LABS: INR 1.1 (0.8-1.2)
[2020-01-19 16:08] LABS: ALBUMIN 3.7 g/dL (3.4-4.8); TOTAL BILIRUBIN 0.3 mg/dL (0.0-1.0)
--- NOTE | 2020-01-19 16:34 | NUR ---
# 14 FR In and Out catheter with use of sterile technique. Immediate return of 200 ml yellow urine noted. Urine sample collected and sent to lab. Pt tolerated procedure well. Patient unable to toilet self, attempted to place on bedside commode, unable to pass urine. Patient became tachycardic and dizzy upon standing to return to bed.
--- NOTE | 2020-01-19 16:44 | NUR ---
Patient requesting pain medication for upper back pain.
[2020-01-19] MEDS ORDERED: HYDROcodone/ACETAMIN 5-325 MG TAB (NORCO/ VICODIN) PO ONE (16:45)
--- NOTE | 2020-01-19 17:13 | NUR ---
Patient given pain medication. Patient states she talked to the MD and knows the plan is for discharge. Patient vital signs are stable with HR 84, BP 113/66, and 98% oxygen saturation. Patient notes that she has a history of SVT and history of autoimmune thyroid disorder hashimotos. MD Kirkpatrick made aware. Per MD, this will not change the status of discharge.
[2020-01-19 17:35] VITALS: BP_SYST 122
--- NOTE | 2020-01-19 17:35 | NUR ---
Patient given written and verbal discharge instructions and verbalizes understanding. ER MD discussed with patient the results and treatment provided. Patient in stable condition. ID arm band removed. IV catheter removed intact and dressing applied, no active bleeding. Rx of ativan given. Patient educated on pain management and to follow up with PMD. Pain Scale 3/10. Opportunity for questions provided and answered. Medication side effect fact sheet provided.
[2020-01-19 17:59] LABS: FREE T4 (FREE THYROXINE) 1.1 ng/dl (0.8-1.5); THYROID STIMULATING HORMONE 1.19 uIu/mL (0.36-3.74)
== END 2020-01-19 17:35 | disposition home or self-care (01) ==
LOC: SED 14:46
DX: R06.02 Shortness of breath (principal); M19.90 Unspecified osteoarthritis, unspecified site; Z79.899 Other long term (current) drug therapy
CPT/HCPCS: 36415; 71045; 80053; 81025; 83880; 84439; 84443-TC; 84484; 85025; 85379; 85610-TC; 85730-TC; 93005; 99285

== ENCOUNTER 2020-01-22 17:45 | Inpatient (IN) | payer OTHER, SELFPAY ==
[~2020-01-22] VITALS: Ht 165.1 cm; Wt 96.0 kg
[2020-01-22] MEDS ORDERED: LORA0.5T PO (19:06)
[2020-01-22] MEDS ORDERED: ATEN1TAB47 PO (19:06)
[2020-01-22] MEDS ORDERED: BACL10TA PO (19:06)
[2020-01-22] MEDS ORDERED: MYCO500T PO (19:06)
[2020-01-22 19:07] VITALS: BP_SYST 135
[2020-01-22] MEDS ORDERED: MORPHINE 4 MG/ML INJ. SYRINGE IVP ONE (21:45)
[2020-01-22] MEDS ORDERED: NACL 0.9% 1,000 ML IV ONE (21:45)
[2020-01-22 21:53] LABS: BASOPHILS # (AUTO) 0.1 K/uL (0.0-0.2); BASOPHILS % (AUTO) 0.8 % (0.0-2.0); EOSINOPHILS # (AUTO) 0.1 K/uL (0.0-0.4); EOSINOPHILS % (AUTO) 0.5 % (0.0-4.0); HEMATOCRIT 28.5 % (36-48); HEMOGLOBIN 9.1 g/dL (12.0-16.0); LYMPHOCYTES # (AUTO) 3.3 K/uL (1.0-5.5); LYMPHOCYTES % (AUTO) 30.9 % (20.5-51.5); MEAN CORPUSCULAR HEMOGLOBIN 25 pg (27-31); MEAN CORPUSCULAR HGB CONC 32 % (32-36); MEAN CORPUSCULAR VOLUME 79 fL (79.0-98.0); MONOCYTES # (AUTO) 0.7 K/uL (0.0-1.0); MONOCYTES % (AUTO) 6.6 % (1.7-9.3); NEUTROPHILS # (AUTO) 6.5 K/uL (1.8-7.7); NEUTROPHILS % (AUTO) 61.2 % (40.0-70.0); PLATELET COUNT (AUTO) 345 K/uL (130-430); RED CELL DISTRIBUTION WIDTH 15.5 % (9.0-15.0); WHITE BLOOD COUNT (AUTO) 10.6 K/uL (4.8-10.8)
[2020-01-22 22:13] LABS: CALCIUM 8.5 mg/dL (8.4-11.0); CREATININE 1.31 mg/dL (0.55-1.30)
[2020-01-22 22:17] LABS: ALBUMIN 3.9 g/dL (3.4-4.8); C-REACTIVE PROTEIN QUANT 1.4 mg/dL (0-0.5); INR 1.1 (0.8-1.2); TOTAL BILIRUBIN 0.4 mg/dL (0.0-1.0)
[2020-01-22 22:27] LABS: POTASSIUM 2.9 mmol/L (3.5-5.1)
[2020-01-23 00:20] LABS: CALCIUM 7.7 mg/dL (8.4-11.0); CREATININE 1.07 mg/dL (0.55-1.30)
[2020-01-23 00:22] LABS: POTASSIUM 2.3 mmol/L (3.5-5.1)
[2020-01-23 01:22] LABS: BILIRUBIN,URINE NEGATIVE (NEGATIVE); BLOOD, URINE 3+ (NEGATIVE); CLARITY/URINE CLEAR (CLEAR); COLOR,URINE YELLOW (YELLOW); GLUCOSE,URINE NEGATIVE (NEGATIVE); KETONES,URINE NEGATIVE (NEGATIVE); LEUKOCYTE ESTERASE ,URINE TRACE (NEGATIVE); NITRITE, URINE NEGATIVE (NEGATIVE); PROTEIN URINE NEGATIVE (NEGATIVE); UROBILINOGEN,URINE 0.2 (0.2-1.0)
[2020-01-23 01:30] LABS: BACTERIA,URINE FEW /HPF (None Seen); RBC,URINE 50-80 /HPF (0-3)
[2020-01-23] MEDS ORDERED: KCL 20 mEq in NS 1000 mL 1,000 ML IV ONE (01:30)
[2020-01-23] MEDS ORDERED: MORPHINE 4 MG/ML INJ. SYRINGE IVP ONE (01:30)
[2020-01-23 01:31] LABS: HYALINE CASTS, URINE 0-10 /LPF (None Seen)
[2020-01-23] MEDS ORDERED: KCL 20 mEq in 100 mL (PREMIX) 200 ML IV ONE (01:47)
[2020-01-23] MEDS ORDERED: POTASSIUM CHLORIDE 20 MEQ TAB.PRT.SR PO ONE ×2 (02:45→13:00)
[2020-01-23] MEDS ORDERED: HYDROcodone/ACETAMIN 5-325 MG TAB (NORCO/ VICODIN) PO ONE (02:45)
[2020-01-23] MEDS ORDERED: KCL 20 mEq in D5/0.45NS 1000mL 1,000 ML IV ONE (06:00)
[2020-01-23 06:52] VITALS: BP_SYST 116
[2020-01-23 07:56] VITALS: BP_SYST 105
[2020-01-23] MEDS ORDERED: ACETAMINOPHEN 325 MG TABLET PO PRN ×2 (08:15→18:15)
[2020-01-23] MEDS ORDERED: HYDROcodone/ACETAMIN 5-325 MG TAB (NORCO/ VICODIN) PO PRN (08:15)
[2020-01-23] MEDS: HYDROcodone/ACETAMIN 10-325 MG TAB PO PRN ×3 (09:24→21:39)
[2020-01-23 15:03] VITALS: BP_SYST 130
[2020-01-23] MEDS ORDERED: ONDANSETRON 4 MG ODT TAB PO PRN (18:00)
[2020-01-23 20:00] VITALS: BP_SYST 114
[2020-01-23] MEDS: GABAPENTIN 300 MG CAPSULE PO SCH (20:59)
[2020-01-23] MEDS: DOXYCYCLINE HYCLATE 100 MG CAPSULE PO SCH (20:59)
[2020-01-23] MEDS: BACLOFEN 10 MG TABLET PO SCH (21:00)
[2020-01-23] MEDS: FERROUS SULFATE 325 MG TABLET.DR PO SCH (21:00)
[2020-01-23] MEDS: PANTOPRAZOLE SODIUM 40 MG TAB PO SCH (21:01)
[2020-01-23] MEDS: NORMAL SALINE 5 ML DISP.SYRIN IVF SCH ×2 (21:02)
[2020-01-23] MEDS: HYDROXYCHLOROQUINE SULFATE 200 MG TABLET PO SCH (21:03)
[2020-01-23] MEDS: LORazepam 1 MG TABLET PO SCH (21:11)
[2020-01-23 21:43] LABS: ALBUMIN 3.1 g/dL (3.4-4.8); CALCIUM 7.8 mg/dL (8.4-11.0); CREATININE 0.84 mg/dL (0.55-1.30); POTASSIUM 3.2 mmol/L (3.5-5.1); TOTAL BILIRUBIN 0.1 mg/dL (0.0-1.0)
[2020-01-24] VITALS: BP_SYST 119
[2020-01-24] MEDS ORDERED: POTASSIUM CHLORIDE 20 MEQ TAB.PRT.SR PO ONE (01:30)
[2020-01-24] MEDS: ZOLPIDEM TARTRATE 5 MG TABLET PO PRN (01:51)
[2020-01-24 05:20] VITALS: BP_SYST 110
[2020-01-24] MEDS: NORMAL SALINE 5 ML DISP.SYRIN IVF SCH ×6 (06:00→21:19)
[2020-01-24] MEDS: LORazepam 1 MG TABLET PO SCH ×2 (06:47→17:48)
[2020-01-24 08:00] VITALS: BP_SYST 104
[2020-01-24 08:12] LABS: BASOPHILS % (AUTO) 0.7 % (0.0-2.0); EOSINOPHILS # (AUTO) 0.1 K/uL (0.0-0.4); EOSINOPHILS % (AUTO) 2.2 % (0.0-4.0); HEMATOCRIT 23.6 % (36-48); HEMOGLOBIN 7.4 g/dL (12.0-16.0); LYMPHOCYTES # (AUTO) 2.3 K/uL (1.0-5.5); LYMPHOCYTES % (AUTO) 45.9 % (20.5-51.5); MEAN CORPUSCULAR HEMOGLOBIN 25 pg (27-31); MEAN CORPUSCULAR HGB CONC 32 % (32-36); MEAN CORPUSCULAR VOLUME 78 fL (79.0-98.0); MONOCYTES # (AUTO) 0.4 K/uL (0.0-1.0); NEUTROPHILS # (AUTO) 2.1 K/uL (1.8-7.7); NEUTROPHILS % (AUTO) 42.2 % (40.0-70.0); PLATELET COUNT (AUTO) 279 K/uL (130-430); RED BLOOD CELL COUNT(AUTO) 3.01 MIL/uL (4.2-6.2); RED CELL DISTRIBUTION WIDTH 15.7 % (9.0-15.0)
[2020-01-24 08:33] LABS: CALCIUM 7.8 mg/dL (8.4-11.0); CREATININE 0.84 mg/dL (0.55-1.30); PHOSPHORUS 2.9 mg/dL (2.7-4.5); POTASSIUM 3.2 mmol/L (3.5-5.1); TOTAL BILIRUBIN 0.2 mg/dL (0.0-1.0)
[2020-01-24] MEDS: ATENOLOL 50 MG TABLET (TENORMIN) PO SCH (09:00)
[2020-01-24] MEDS ORDERED: CHLORTHALIDONE PO SCH (09:00)
[2020-01-24] MEDS ORDERED: ATENOLOL PO SCH (09:00)
[2020-01-24] MEDS: CHLORTHALIDONE 25 MG TABLET (HYGROTON) PO SCH (09:00)
[2020-01-24] MEDS: HYDROcodone/ACETAMIN 10-325 MG TAB PO PRN ×3 (09:09→21:19)
[2020-01-24] MEDS: BACLOFEN 10 MG TABLET PO SCH ×3 (09:10→20:36)
[2020-01-24] MEDS: MYCOPHENOLATE MOFETIL 250 MG CAPSULE PO SCH (09:10)
[2020-01-24] MEDS: PANTOPRAZOLE SODIUM 40 MG TAB PO SCH (09:10)
[2020-01-24] MEDS: DULoxetine HCL 30 MG CAPSULE.DR (CYMBALTA) PO SCH (09:10)
[2020-01-24] MEDS: GABAPENTIN 300 MG CAPSULE PO SCH ×3 (09:10→20:38)
[2020-01-24] MEDS: FERROUS SULFATE 325 MG TABLET.DR PO SCH ×2 (09:11→20:37)
[2020-01-24] MEDS: DOXYCYCLINE HYCLATE 100 MG CAPSULE PO SCH ×2 (09:11→20:39)
[2020-01-24] MEDS: POTASSIUM CHLORIDE 20 MEQ TAB.PRT.SR PO SCH (09:13)
[2020-01-24] MEDS: MODAFINIL 100 MG TABLET (PROVIGIL) PO SCH (09:14)
[2020-01-24 12:00] VITALS: BP_SYST 127
[2020-01-24] MEDS ORDERED: POTASSIUM CHLORIDE 20 MEQ/PKT PACKET PO ONE (16:30)
[2020-01-24 16:35] VITALS: BP_SYST 127
[2020-01-24 20:00] VITALS: BP_SYST 114
[2020-01-24] MEDS: HYDROXYCHLOROQUINE SULFATE 200 MG TABLET PO SCH (20:38)
[2020-01-25] VITALS (7 sets, daily range): BP systolic 110–139
[2020-01-25] MEDS: ZOLPIDEM TARTRATE 5 MG TABLET PO PRN (00:20)
[2020-01-25] MEDS: HYDROcodone/ACETAMIN 5-325 MG TAB (NORCO/ VICODIN) PO PRN (00:21)
[2020-01-25] MEDS: NORMAL SALINE 5 ML DISP.SYRIN IVF SCH ×6 (06:55→22:00)
[2020-01-25] MEDS: LORazepam 1 MG TABLET PO SCH ×3 (06:55→19:15)
[2020-01-25 07:25] LABS: BASOPHILS % (AUTO) 0.7 % (0.0-2.0); EOSINOPHILS # (AUTO) 0.1 K/uL (0.0-0.4); HEMATOCRIT 23.3 % (36-48); HEMOGLOBIN 7.3 g/dL (12.0-16.0); LYMPHOCYTES # (AUTO) 3.1 K/uL (1.0-5.5); LYMPHOCYTES % (AUTO) 47.8 % (20.5-51.5); MEAN CORPUSCULAR HEMOGLOBIN 25 pg (27-31); MEAN CORPUSCULAR HGB CONC 32 % (32-36); MEAN CORPUSCULAR VOLUME 79 fL (79.0-98.0); MONOCYTES # (AUTO) 0.6 K/uL (0.0-1.0); MONOCYTES % (AUTO) 9.2 % (1.7-9.3); NEUTROPHILS # (AUTO) 2.6 K/uL (1.8-7.7); NEUTROPHILS % (AUTO) 40.3 % (40.0-70.0); PLATELET COUNT (AUTO) 317 K/uL (130-430); RED BLOOD CELL COUNT(AUTO) 2.94 MIL/uL (4.2-6.2); WHITE BLOOD COUNT (AUTO) 6.4 K/uL (4.8-10.8)
[2020-01-25 07:43] LABS: CALCIUM 8.1 mg/dL (8.4-11.0); CREATININE 0.78 mg/dL (0.55-1.30); PHOSPHORUS 3.8 mg/dL (2.7-4.5); POTASSIUM 3.9 mmol/L (3.5-5.1)
[2020-01-25 08:23] LABS: TOTAL IRON BIND. CAPACITY 275 ug/dL (250-450)
[2020-01-25] MEDS: DULoxetine HCL 30 MG CAPSULE.DR (CYMBALTA) PO SCH (08:45)
[2020-01-25] MEDS: DOXYCYCLINE HYCLATE 100 MG CAPSULE PO SCH ×2 (08:45→21:30)
[2020-01-25] MEDS: CHLORTHALIDONE 25 MG TABLET (HYGROTON) PO SCH (08:45)
[2020-01-25] MEDS: FERROUS SULFATE 325 MG TABLET.DR PO SCH ×2 (08:45→21:30)
[2020-01-25] MEDS: MODAFINIL 100 MG TABLET (PROVIGIL) PO SCH (08:45)
[2020-01-25] MEDS: MYCOPHENOLATE MOFETIL 250 MG CAPSULE PO SCH (08:45)
[2020-01-25] MEDS: GABAPENTIN 300 MG CAPSULE PO SCH ×3 (08:45→21:30)
[2020-01-25] MEDS: BACLOFEN 10 MG TABLET PO SCH ×3 (08:45→21:30)
[2020-01-25] MEDS: PANTOPRAZOLE SODIUM 40 MG TAB PO SCH (08:45)
[2020-01-25] MEDS: ATENOLOL 50 MG TABLET (TENORMIN) PO SCH (08:45)
[2020-01-25] MEDS: POTASSIUM CHLORIDE 20 MEQ TAB.PRT.SR PO SCH (08:45)
[2020-01-25] MEDS ORDERED: ACETAMINOPHEN 325 MG TABLET PO ONE (11:30)
[2020-01-25 11:45] LABS: POTASSIUM,URINE RANDOM 86 mmol/L (12-75); URINE SODIUM, RANDOM 72 mmol/L (40-220)
[2020-01-25] MEDS: HYDROcodone/ACETAMIN 10-325 MG TAB PO PRN ×2 (19:47→23:47)
[2020-01-25] MEDS: HYDROXYCHLOROQUINE SULFATE 200 MG TABLET PO SCH (21:30)
[2020-01-26] MEDS: ZOLPIDEM TARTRATE 5 MG TABLET PO PRN ×2 (00:28→21:52)
[2020-01-26 01:40] VITALS: BP_SYST 125
[2020-01-26] MEDS ORDERED: DOCUSATE SODIUM 100 MG CAPSULE PO PRN (05:45)
[2020-01-26] MEDS: LORazepam 1 MG TABLET PO SCH ×2 (05:57→18:14)
[2020-01-26] MEDS: NORMAL SALINE 5 ML DISP.SYRIN IVF SCH ×6 (05:58→21:45)
[2020-01-26] MEDS: HYDROcodone/ACETAMIN 10-325 MG TAB PO PRN ×4 (06:30→21:44)
[2020-01-26 07:43] LABS: BASOPHILS # (AUTO) 0.1 K/uL (0.0-0.2); BASOPHILS % (AUTO) 0.7 % (0.0-2.0); EOSINOPHILS # (AUTO) 0.2 K/uL (0.0-0.4); HEMATOCRIT 31.6 % (36-48); HEMOGLOBIN 10.2 g/dL (12.0-16.0); LYMPHOCYTES # (AUTO) 3.2 K/uL (1.0-5.5); LYMPHOCYTES % (AUTO) 36.7 % (20.5-51.5); MEAN CORPUSCULAR HEMOGLOBIN 27 pg (27-31); MEAN CORPUSCULAR HGB CONC 32 % (32-36); MEAN CORPUSCULAR VOLUME 83 fL (79.0-98.0); MONOCYTES # (AUTO) 0.7 K/uL (0.0-1.0); MONOCYTES % (AUTO) 8.1 % (1.7-9.3); NEUTROPHILS # (AUTO) 4.5 K/uL (1.8-7.7); NEUTROPHILS % (AUTO) 52.5 % (40.0-70.0); PLATELET COUNT (AUTO) 321 K/uL (130-430); RED BLOOD CELL COUNT(AUTO) 3.81 MIL/uL (4.2-6.2); RED CELL DISTRIBUTION WIDTH 17.2 % (9.0-15.0); WHITE BLOOD COUNT (AUTO) 8.6 K/uL (4.8-10.8)
[2020-01-26 07:44] LABS: CALCIUM 8.4 mg/dL (8.4-11.0); CREATININE 0.88 mg/dL (0.55-1.30); PHOSPHORUS 4.4 mg/dL (2.7-4.5); POTASSIUM 3.3 mmol/L (3.5-5.1)
[2020-01-26 08:56] VITALS: BP_SYST 120
[2020-01-26] MEDS: MODAFINIL 100 MG TABLET (PROVIGIL) PO SCH (09:01)
[2020-01-26] MEDS: BACLOFEN 10 MG TABLET PO SCH ×3 (09:01→21:43)
[2020-01-26] MEDS: PANTOPRAZOLE SODIUM 40 MG TAB PO SCH (09:02)
[2020-01-26] MEDS: POTASSIUM CHLORIDE 20 MEQ TAB.PRT.SR PO SCH (09:02)
[2020-01-26] MEDS: DOCUSATE SODIUM 100 MG CAPSULE PO SCH ×2 (09:02→21:43)
[2020-01-26] MEDS: FERROUS SULFATE 325 MG TABLET.DR PO SCH ×2 (09:02→21:43)
[2020-01-26] MEDS: DULoxetine HCL 30 MG CAPSULE.DR (CYMBALTA) PO SCH (09:02)
[2020-01-26] MEDS: MYCOPHENOLATE MOFETIL 250 MG CAPSULE PO SCH (09:03)
[2020-01-26] MEDS: GABAPENTIN 300 MG CAPSULE PO SCH ×3 (09:03→21:43)
[2020-01-26] MEDS: ATENOLOL 50 MG TABLET (TENORMIN) PO SCH (09:04)
[2020-01-26] MEDS: CHLORTHALIDONE 25 MG TABLET (HYGROTON) PO SCH (09:04)
[2020-01-26] MEDS: DOXYCYCLINE HYCLATE 100 MG CAPSULE PO SCH ×2 (09:05→21:43)
[2020-01-26 12:00] VITALS: BP_SYST 108
[2020-01-26 13:06] LABS: FOLATE (FOLIC ACID) 8.5 ng/mL (>3.0)
[2020-01-26] MEDS ORDERED: MAGNESIUM SULFATE 1 GM/2 ML VIAL IVP ONE (13:15)
[2020-01-26] MEDS ORDERED: POTASSIUM CHLORIDE 40 MEQ, LIDOCAINE JECT 2% PF 100 MG 50 MG in NS 250 ML IV ONE (13:15)
[2020-01-26] MEDS ORDERED: POTA20TA83 PO (13:16)
[2020-01-26] MEDS ORDERED: POTASSIUM CHLORIDE 20 MEQ TAB.PRT.SR PO ONE (15:00)
[2020-01-26 16:29] VITALS: BP_SYST 109
[2020-01-26 20:00] VITALS: BP_SYST 102
[2020-01-26] MEDS: HYDROXYCHLOROQUINE SULFATE 200 MG TABLET PO SCH (21:43)
[2020-01-27] VITALS: BP_SYST 111
[2020-01-27] MEDS: NORMAL SALINE 5 ML DISP.SYRIN IVF SCH ×5 (04:53→20:58)
[2020-01-27] MEDS: LORazepam 1 MG TABLET PO SCH ×2 (05:02→18:00)
[2020-01-27 06:55] LABS: CALCIUM 8.4 mg/dL (8.4-11.0); CREATININE 0.86 mg/dL (0.55-1.30); POTASSIUM 4.1 mmol/L (3.5-5.1)
[2020-01-27 07:03] LABS: BASOPHILS % (AUTO) 0.6 % (0.0-2.0); EOSINOPHILS # (AUTO) 0.2 K/uL (0.0-0.4); EOSINOPHILS % (AUTO) 2.2 % (0.0-4.0); HEMATOCRIT 33.1 % (36-48); HEMOGLOBIN 10.5 g/dL (12.0-16.0); LYMPHOCYTES # (AUTO) 3.2 K/uL (1.0-5.5); LYMPHOCYTES % (AUTO) 39.8 % (20.5-51.5); MEAN CORPUSCULAR HEMOGLOBIN 27 pg (27-31); MEAN CORPUSCULAR HGB CONC 32 % (32-36); MEAN CORPUSCULAR VOLUME 84 fL (79.0-98.0); MONOCYTES # (AUTO) 0.6 K/uL (0.0-1.0); NEUTROPHILS # (AUTO) 3.9 K/uL (1.8-7.7); NEUTROPHILS % (AUTO) 49.4 % (40.0-70.0); PLATELET COUNT (AUTO) 335 K/uL (130-430); RED BLOOD CELL COUNT(AUTO) 3.95 MIL/uL (4.2-6.2); RED CELL DISTRIBUTION WIDTH 17.7 % (9.0-15.0)
[2020-01-27 08:01] VITALS: BP_SYST 102
[2020-01-27] MEDS: DOXYCYCLINE HYCLATE 100 MG CAPSULE PO SCH ×2 (08:30→20:58)
[2020-01-27] MEDS: POTASSIUM CHLORIDE 20 MEQ TAB.PRT.SR PO SCH (08:31)
[2020-01-27] MEDS: FERROUS SULFATE 325 MG TABLET.DR PO SCH ×2 (08:31→20:58)
[2020-01-27] MEDS: DOCUSATE SODIUM 100 MG CAPSULE PO SCH ×2 (08:31→20:58)
[2020-01-27] MEDS: DULoxetine HCL 30 MG CAPSULE.DR (CYMBALTA) PO SCH (08:32)
[2020-01-27] MEDS: PANTOPRAZOLE SODIUM 40 MG TAB PO SCH (08:33)
[2020-01-27] MEDS: GABAPENTIN 300 MG CAPSULE PO SCH ×3 (08:33→20:58)
[2020-01-27] MEDS: MYCOPHENOLATE MOFETIL 250 MG CAPSULE PO SCH (08:33)
[2020-01-27] MEDS: MODAFINIL 100 MG TABLET (PROVIGIL) PO SCH (08:33)
[2020-01-27] MEDS: BACLOFEN 10 MG TABLET PO SCH ×3 (08:33→20:57)
[2020-01-27] MEDS: HYDROcodone/ACETAMIN 5-325 MG TAB (NORCO/ VICODIN) PO PRN (08:40)
[2020-01-27] MEDS: HYDROcodone/ACETAMIN 10-325 MG TAB PO PRN ×3 (08:56→20:57)
[2020-01-27] MEDS ORDERED: MAGNESIUM OXIDE 400 MG TABLET PO ONE (10:45)
[2020-01-27] MEDS: ATENOLOL 50 MG TABLET (TENORMIN) PO SCH (12:30)
[2020-01-27] MEDS: CHLORTHALIDONE 25 MG TABLET (HYGROTON) PO SCH (12:30)
[2020-01-27 12:38] VITALS: BP_SYST 136
[2020-01-27] MEDS ORDERED: LORA0.5T PO (15:56)
[2020-01-27] MEDS ORDERED: HYDR-4272 PO (15:56)
[2020-01-27 16:03] VITALS: BP_SYST 138
[2020-01-27 16:41] VITALS: BP_SYST 138
[2020-01-27 20:00] VITALS: BP_SYST 110
[2020-01-27] MEDS: HYDROXYCHLOROQUINE SULFATE 200 MG TABLET PO SCH (20:58)
[2020-01-28] MEDS ORDERED: MAGNESIUM OXIDE 400 MG TABLET PO SCH (09:00)
== END 2020-01-27 21:10 | disposition home or self-care (01) | DRG 425 ==
LOC: SED 17:45 → STU 01-23 05:47 → EEVIPCON 01-23 05:47 → STU 01-23 06:36 → SMU 01-27 16:03
PROVIDERS: ADMIT Preventive Medicine Preventive Medicine/Occupational Environmental Medicine; ATTEND Preventive Medicine Preventive Medicine/Occupational Environmental Medicine
PROC: 30233N1 Transfusion of Nonautologous Red Blood Cells into Peripheral Vein, Percutaneous Approach (ICD-10-PCS; principal; 2020-01-25)
DX: E87.6 Hypokalemia (principal); R65.11 Systemic inflammatory response syndrome (SIRS) of non-infectious origin with acute organ dysfunction; N17.9 Acute kidney failure, unspecified; E44.0 Moderate protein-calorie malnutrition; M32.9 Systemic lupus erythematosus, unspecified; E83.51 Hypocalcemia; E88.09 Other disorders of plasma-protein metabolism, not elsewhere classified; I47.1 Supraventricular tachycardia; M34.9 Systemic sclerosis, unspecified; M06.9 Rheumatoid arthritis, unspecified; I12.9 Hypertensive chronic kidney disease with stage 1 through stage 4 chronic kidney disease, or unspecified chronic kidney disease; N18.9 Chronic kidney disease, unspecified; R94.31 Abnormal electrocardiogram [ECG] [EKG]; Z20.828 Contact with and (suspected) exposure to other viral communicable diseases; E06.3 Autoimmune thyroiditis; D64.9 Anemia, unspecified; G89.4 Chronic pain syndrome; N92.0 Excessive and frequent menstruation with regular cycle; R31.29 Other microscopic hematuria; Z68.35 Body mass index [BMI] 35.0-35.9, adult; Z79.899 Other long term (current) drug therapy; I25.2 Old myocardial infarction
CPT/HCPCS: 36415; 71045; 80048; 80053; 81000-TC; 82272; 82607; 82728; 82746; 83540-TC; 83550-TC; 83615-TC; 83735-TC; 83880; 84100-TC; 84132-TC; 84302-TC; 84484; 84999-TC; 85025; 85044-TC; 85379; 85384-TC; 85610-TC; 85730-TC; 86140; 86710; 86886; 86900; 86901; 86920; 93005; 93306; 96365; 96366; 96375; 96376; 99285; G0378; J2270; J3475; J3480; J7050; J7517; P9021

== ENCOUNTER 2020-02-26 15:33 | Emergency (ER) | payer OTHER, SELFPAY ==
[~2020-02-26] VITALS: Ht 165.1 cm; Wt 95.3 kg
[~2020-02-26 15:33] MED LIST changes: +ATEN1TAB47 PO; +BACL10TA PO; +LORA0.5T PO; +MYCO500T PO; +POTA20TA83 PO
[2020-02-26 15:44] VITALS: BP_SYST 129
--- NOTE | 2020-02-26 15:53 | NUR ---
Patient triaged and placed in waiting room. VSS and patient appears in no acute distress at this time. Accompanied by SELF, awaiting available bed, and MD notified of need for MSE.
--- NOTE | 2020-02-26 16:37 | NUR ---
Placed in room 03 . Placed on resaw machine operator, blood pressure machine and pulse oximeter. To gown for exam. Side rails up.
--- NOTE | 2020-02-26 16:57 | NUR ---
DR JOHANSEN IN TO ASSESS
--- NOTE | 2020-02-26 17:00 | NUR ---
HERE FROM HOME FOR RT FLANK PAIN . HX OF LUPUS AND CURRENTLY ANEMIC. CALM, ALERT, COMMUNICATES CLEARLY IN FULL COMPLETE SENTNECESM SKIN WARN AND PALE. NSR ON MONITOR NO ECTOPY, SAO2 99% ON RA. PAIN 04/07.
[2020-02-26 17:36] LABS: BASOPHILS % (AUTO) 0.6 % (0.0-2.0); EOSINOPHILS % (AUTO) 0.2 % (0.0-4.0); HEMATOCRIT 39.9 % (36-48); MEAN CORPUSCULAR HEMOGLOBIN 27 pg (27-31); MEAN CORPUSCULAR HGB CONC 33 % (32-36); MEAN CORPUSCULAR VOLUME 82 fL (79.0-98.0); MONOCYTES # (AUTO) 0.6 K/uL (0.0-1.0); MONOCYTES % (AUTO) 7.6 % (1.7-9.3); NEUTROPHILS # (AUTO) 5.4 K/uL (1.8-7.7); NEUTROPHILS % (AUTO) 66.6 % (40.0-70.0); PLATELET COUNT (AUTO) 349 K/uL (130-430); RED BLOOD CELL COUNT(AUTO) 4.88 MIL/uL (4.2-6.2); RED CELL DISTRIBUTION WIDTH 17.9 % (9.0-15.0); WHITE BLOOD COUNT (AUTO) 8.2 K/uL (4.8-10.8)
[2020-02-26 17:38] LABS: CALCIUM 9.3 mg/dL (8.4-11.0); CREATININE 1.11 mg/dL (0.55-1.30)
[2020-02-26 17:48] LABS: ALBUMIN 4.3 g/dL (3.4-4.8); TOTAL BILIRUBIN 0.5 mg/dL (0.0-1.0)
[2020-02-26 17:53] LABS: POTASSIUM 2.6 mmol/L (3.5-5.1)
[2020-02-26] MEDS ORDERED: POTASSIUM CHLORIDE 20 MEQ/PKT PACKET PO ONE (18:00)
[2020-02-26 18:21] LABS: BILIRUBIN,URINE NEGATIVE (NEGATIVE); BLOOD, URINE NEGATIVE (NEGATIVE); COLOR,URINE YELLOW (YELLOW); GLUCOSE,URINE NEGATIVE (NEGATIVE); KETONES,URINE TRACE (NEGATIVE); LEUKOCYTE ESTERASE ,URINE NEGATIVE (NEGATIVE); NITRITE, URINE NEGATIVE (NEGATIVE); PROTEIN URINE TRACE (NEGATIVE); UROBILINOGEN,URINE 0.2 (0.2-1.0)
[2020-02-26 18:24] LABS: CLARITY/URINE SLIGHTLY HAZY (CLEAR)
[2020-02-26 18:38] LABS: BACTERIA,URINE FEW /HPF (None Seen); MUCUS,URINE 3+ /LPF (None Seen); RBC,URINE 0-3 /HPF (0-3); WBC,URINE 0-3 /HPF (0-3)
[2020-02-26 18:39] LABS: FINE GRANULAR CASTS,URINE 30-50 /LPF (None Seen)
--- NOTE | 2020-02-26 19:05 | NUR ---
Patient given written and verbal discharge instructions and verbalizes understanding. ER MD JOHANSEN discussed with patient the results and treatment provided. Patient in stable condition. ID arm band removed. IV catheter removed intact and dressing applied, no active bleeding. Rx of KCL given. Patient educated on pain management and to follow up with PMD. Pain Scale Opportunity for questions provided and answered. Medication side effect fact sheet provided.
[2020-02-26 19:10] VITALS: BP_SYST 126
== END 2020-02-26 19:05 | disposition home or self-care (01) ==
LOC: SED 15:33
DX: E87.6 Hypokalemia (principal); R00.2 Palpitations; I10 Essential (primary) hypertension; I47.1 Supraventricular tachycardia; Z86.2 Personal history of diseases of the blood and blood-forming organs and certain disorders involving the immune mechanism; Z79.899 Other long term (current) drug therapy
CPT/HCPCS: 36415; 71045; 80053; 81000-TC; 82550-TC; 83880; 84484; 85025; 86886; 86900; 86901; 93005; 99285

== ENCOUNTER 2020-05-05 14:46 | Emergency (ER) | payer OTHER, SELFPAY ==
[~2020-05-05] VITALS: Ht 162.6 cm; Wt 99.8 kg
[~2020-05-05 14:46] MED LIST changes: -DOXY100T2 PO; -HYDR-4272 PO; -LORA0.5T PO; -ZOLP10TA2 PO
[2020-05-05 14:58] VITALS: BP_SYST 132
--- NOTE | 2020-05-05 15:04 | NUR ---
Patient to ER bed 8 to gown for evaluation. Side rails up. Report given to [place].
--- NOTE | 2020-05-05 15:15 | NUR ---
Patient presented to ER C/O BODY ACHES. Patient A&Ox4, ambulatory to ER, afebrile, skin pink and warm, pain 09/07, denies N/V/D. Patient states has body aches x1 week, self medicating with PO [place]. Patient states she has HX Lupus.
--- NOTE | 2020-05-05 15:20 | NUR ---
ER at bedside examining patient.
[2020-05-05] MEDS ORDERED: CLINDAMYCIN PHOSPHATE 300 MG/2 ML VIAL IM ONE (15:30)
[2020-05-05] MEDS ORDERED: KETOROLAC TROMETHAMINE 30 MG VIAL IM ONE ×2 (15:30→17:15)
[2020-05-05] MEDS ORDERED: HYDROcodone/ACETAMIN 5-325 MG TAB (NORCO/ VICODIN) PO ONE (15:45)
[2020-05-05 16:08] LABS: BASOPHILS % (AUTO) 0.8 % (0.0-2.0); EOSINOPHILS # (AUTO) 0.1 K/uL (0.0-0.4); EOSINOPHILS % (AUTO) 1.2 % (0.0-4.0); HEMOGLOBIN 11.6 g/dL (12.0-16.0); LYMPHOCYTES # (AUTO) 1.7 K/uL (1.0-5.5); LYMPHOCYTES % (AUTO) 29.6 % (20.5-51.5); MEAN CORPUSCULAR HEMOGLOBIN 26 pg (27-31); MEAN CORPUSCULAR HGB CONC 32 % (32-36); MEAN CORPUSCULAR VOLUME 81 fL (79.0-98.0); MONOCYTES # (AUTO) 0.5 K/uL (0.0-1.0); MONOCYTES % (AUTO) 8.9 % (1.7-9.3); NEUTROPHILS # (AUTO) 3.4 K/uL (1.8-7.7); NEUTROPHILS % (AUTO) 59.5 % (40.0-70.0); PLATELET COUNT (AUTO) 327 K/uL (130-430); RED BLOOD CELL COUNT(AUTO) 4.42 MIL/uL (4.2-6.2); RED CELL DISTRIBUTION WIDTH 19.8 % (9.0-15.0); WHITE BLOOD COUNT (AUTO) 5.7 K/uL (4.8-10.8)
[2020-05-05 16:15] LABS: CALCIUM 9.5 mg/dL (8.4-11.0); CREATININE 0.95 mg/dL (0.55-1.30); POTASSIUM 3.3 mmol/L (3.5-5.1)
[2020-05-05 16:20] LABS: ALBUMIN 4.3 g/dL (3.4-4.8); TOTAL BILIRUBIN 0.4 mg/dL (0.0-1.0)
[2020-05-05 16:57] LABS: BILIRUBIN,URINE NEGATIVE (NEGATIVE); BLOOD, URINE NEGATIVE (NEGATIVE); CLARITY/URINE CLEAR (CLEAR); COLOR,URINE YELLOW (YELLOW); GLUCOSE,URINE NEGATIVE (NEGATIVE); KETONES,URINE NEGATIVE (NEGATIVE); LEUKOCYTE ESTERASE ,URINE NEGATIVE (NEGATIVE); NITRITE, URINE NEGATIVE (NEGATIVE); PROTEIN URINE NEGATIVE (NEGATIVE); UROBILINOGEN,URINE 0.2 (0.2-1.0)
[2020-05-05] MEDS ORDERED: POTASSIUM CHLORIDE 20 MEQ/PKT PACKET PO ONE (17:15)
[2020-05-05] MEDS ORDERED: methylPREDNISolone SOD SUCC/PF 62.5 MG/ML VIAL IM ONE (17:15)
[2020-05-05 17:40] VITALS: BP_SYST 122
--- NOTE | 2020-05-05 17:40 | NUR ---
Patient given written and verbal discharge instructions and verbalizes understanding. ER MD discussed with patient the results and treatment provided. Patient in stable condition. ID arm band removed. Rx of PREDNISONE given. Patient educated on pain management and to follow up with PMD. Pain Scale 3/10 TOLERABLE FOR PT . Opportunity for questions provided and answered. Medication side effect fact sheet provided.
== END 2020-05-05 17:40 | disposition home or self-care (01) ==
LOC: SED 14:46
DX: E87.6 Hypokalemia (principal); M79.18 Myalgia, other site; I10 Essential (primary) hypertension; Z86.2 Personal history of diseases of the blood and blood-forming organs and certain disorders involving the immune mechanism; Z79.899 Other long term (current) drug therapy
CPT/HCPCS: 36415; 74176; 80053; 81003; 82550; 85025; 96372; 99284; J1885; J2930

== ENCOUNTER 2020-06-04 13:43 | Inpatient (IN) | payer OTHER, SELFPAY ==
[~2020-06-04] VITALS: Ht 165.1 cm; Wt 103.0 kg
--- NOTE | 2020-06-04 02:30 | NUR ---
Patient is resting, no signs of distress noted. Call light within reach, bed alarm on, bed at lowest position. Will continue to monitor. Addendum: 06/05/20 at 0812 by Malia Quiñones RN WRONG TIME, PLEASE DISREGARD.
[2020-06-04 13:43] VITALS: BP_SYST 134
--- NOTE | 2020-06-04 13:43 | NUR ---
BROUGHT BACK TO BED #5 AND TRIAGED. REPORT GIVEN TO SIOMARA
--- NOTE | 2020-06-04 14:10 | NUR ---
Pt came to ER for L leg numbness, R flank pain pain 5/10, and CORLEY. Pt currently resting comfortably, no distress, VSS
--- NOTE | 2020-06-04 14:19 | NUR ---
ER at bedside examining patient.
[2020-06-04] MEDS ORDERED: DILTIAZEM HCL 25 MG/5 ML VIAL IVP ONE (14:45)
[2020-06-04] MEDS ORDERED: NS 500 ML IV ONE (14:45)
[2020-06-04] MEDS ORDERED: KETOROLAC TROMETHAMINE 30 MG VIAL IVP ONE (14:45)
[2020-06-04 15:38] LABS: BASOPHILS # (AUTO) 0.1 K/uL (0.0-0.2); BASOPHILS % (AUTO) 0.9 % (0.0-2.0); EOSINOPHILS # (AUTO) 0.1 K/uL (0.0-0.4); EOSINOPHILS % (AUTO) 1.3 % (0.0-4.0); HEMOGLOBIN 7.7 g/dL (12.0-16.0); LYMPHOCYTES # (AUTO) 3.5 K/uL (1.0-5.5); LYMPHOCYTES % (AUTO) 32.8 % (20.5-51.5); MEAN CORPUSCULAR HEMOGLOBIN 25 pg (27-31); MEAN CORPUSCULAR HGB CONC 32 % (32-36); MEAN CORPUSCULAR VOLUME 80 fL (79.0-98.0); MONOCYTES # (AUTO) 0.8 K/uL (0.0-1.0); MONOCYTES % (AUTO) 7.2 % (1.7-9.3); NEUTROPHILS # (AUTO) 6.2 K/uL (1.8-7.7); NEUTROPHILS % (AUTO) 57.8 % (40.0-70.0); PLATELET COUNT (AUTO) 312 K/uL (130-430); RED BLOOD CELL COUNT(AUTO) 3.02 MIL/uL (4.2-6.2); RED CELL DISTRIBUTION WIDTH 18.7 % (9.0-15.0); WHITE BLOOD COUNT (AUTO) 10.8 K/uL (4.8-10.8)
--- NOTE | 2020-06-04 16:00 | NUR ---
Pt resting in [facility] at this time, pain consistently reported severe
[2020-06-04 16:01] LABS: CALCIUM 8.1 mg/dL (8.4-11.0); CREATININE 0.9 mg/dL (0.55-1.30)
[2020-06-04 16:06] LABS: ALBUMIN 3.4 g/dL (3.4-4.8); TOTAL BILIRUBIN 0.4 mg/dL (0.0-1.0)
[2020-06-04 16:13] LABS: POTASSIUM 2.7 mmol/L (3.5-5.1)
[2020-06-04] MEDS ORDERED: POTASSIUM CHLORIDE 20 MEQ/PKT PACKET PO ONE ×2 (16:15→18:45)
[2020-06-04] MEDS ORDERED: HYDROcodone/ACETAMIN 7.5-325 MG TAB PO ONE (17:15)
--- NOTE | 2020-06-04 17:35 | NUR ---
Pt medicated, will monitor response
[2020-06-04 17:48] LABS: TOTAL IRON BIND. CAPACITY 380 ug/dL (250-450)
[2020-06-04] MEDS ORDERED: ACETAMINOPHEN 325 MG TABLET PO PRN (18:15)
[2020-06-04] MEDS ORDERED: NALOXONE HCL 0.4 MG/ML AMP (NARCAN) IVP PRN ×2 (18:15)
[2020-06-04] MEDS ORDERED: ALBUTEROL SULFATE 0.083% 2.5 MG/3 ML VIAL.NEB INH PRN (18:15)
--- NOTE | 2020-06-04 19:00 | NUR ---
Pt resting in [facility] at this time no distress, report given to Kita TIDWELL
--- NOTE | 2020-06-04 19:20 | NUR ---
REPORT RECEIVED FROM YAW STRINGER FOR CONTINUING CARE
[2020-06-04] MEDS: NACL 0.9% 1,000 ML IV SCH (19:24)
--- NOTE | 2020-06-04 19:35 | NUR ---
COVID SWAB DONE AND SENT TO LAB
[2020-06-04] MEDS: HYDROcodone/ACETAMIN 5-325 MG TAB (NORCO/ VICODIN) PO PRN (20:15)
--- NOTE | 2020-06-04 21:13 | NUR ---
Patient will be admitted to care of DR. LANIER. Admitted to TELE unit. Will go to room 108A. Belongings list completed. Complete and up to date summary report printed. SBAR report to be given at bedside with opportunity for questions. Addendum: 06/04/20 at 2127 by SDEDPR Patient will be admitted to care of DR. LOCKE.
--- NOTE | 2020-06-04 21:33 | NUR ---
ADMISSION: The patient, WAYNE BELL, 49 y/o, F admitted by FABRICIO LANIER MD, with the diagnosis of Anemia to room 108 A , PRIMARY RN IS AWARE .
--- NOTE | 2020-06-04 21:45 | NUR ---
OPENING NOTES Patient is resting, no signs of acute respiratory distress noted, IV site patent, dressings c/d/i, IVF running. Patient to be NPO past midnight. Call light within reach, bed alarm on, bed at lowest position. Will continue to monitor.
[2020-06-04 21:49] VITALS: BP_SYST 109
[2020-06-04] MEDS ORDERED: FLU VACC QS2020-21 (6 mos & up) 0.5 ML/SYRINGE I.M. PRN (22:15)
[2020-06-04] MEDS: mycophenolate mofetiL 250 MG CAPSULE PO SCH (23:15)
--- NOTE | 2020-06-04 23:15 | NUR ---
SPOKE TO DR. LANIER, RECEIVED NEW ORDERS FOR AMBIEN 10 MG, AND TO START CELLCEPT, GABAPENTIN AND PLAQUENIL.
[2020-06-05] MEDS: ZOLPIDEM TARTRATE 5 MG TABLET PO PRN (00:26)
[2020-06-05] MEDS: PANTOPRAZOLE SODIUM 40 MG TAB PO SCH ×3 (00:27→20:35)
[2020-06-05] MEDS: GABAPENTIN 300 MG CAPSULE PO SCH ×4 (00:27→20:35)
[2020-06-05] MEDS: MORPHINE 2 MG/ML INJ. SYRINGE IVP PRN ×4 (00:29→19:33)
[2020-06-05 00:56] VITALS: BP_SYST 108
--- NOTE | 2020-06-05 02:15 | NUR ---
Patient is resting, no signs of distress noted. Call light within reach, bed alarm on, bed at lowest position. Will continue to monitor.
--- NOTE | 2020-06-05 02:23 | NUR ---
Consultation Paged Reason for Consultation: Anemia Was consult called: Y Person who was notified: Gina Consulting Physician: Dr. Dykes (Dr. Davis is mobile application architect) Ordering Physician: Dr. Urban
[2020-06-05 06:11] VITALS: BP_SYST 134
[2020-06-05 06:48] LABS: BASOPHILS % (AUTO) 0.5 % (0.0-2.0); EOSINOPHILS # (AUTO) 0.1 K/uL (0.0-0.4); EOSINOPHILS % (AUTO) 2.1 % (0.0-4.0); HEMATOCRIT 22.7 % (36-48); HEMOGLOBIN 7.1 g/dL (12.0-16.0); LYMPHOCYTES # (AUTO) 2.7 K/uL (1.0-5.5); LYMPHOCYTES % (AUTO) 39.8 % (20.5-51.5); MEAN CORPUSCULAR HEMOGLOBIN 25 pg (27-31); MEAN CORPUSCULAR HGB CONC 31 % (32-36); MEAN CORPUSCULAR VOLUME 80 fL (79.0-98.0); MONOCYTES # (AUTO) 0.6 K/uL (0.0-1.0); NEUTROPHILS # (AUTO) 3.3 K/uL (1.8-7.7); NEUTROPHILS % (AUTO) 48.6 % (40.0-70.0); PLATELET COUNT (AUTO) 264 K/uL (130-430); RED BLOOD CELL COUNT(AUTO) 2.82 MIL/uL (4.2-6.2); RED CELL DISTRIBUTION WIDTH 18.2 % (9.0-15.0); WHITE BLOOD COUNT (AUTO) 6.8 K/uL (4.8-10.8)
[2020-06-05 07:04] LABS: PROTHROMBIN TIME 10.2 SECS (9.5-12.5)
[2020-06-05 07:31] LABS: ALBUMIN 2.9 g/dL (3.4-4.8); CREATININE 0.75 mg/dL (0.55-1.30); POTASSIUM 3.1 mmol/L (3.5-5.1); TOTAL BILIRUBIN 0.3 mg/dL (0.0-1.0)
--- NOTE | 2020-06-05 07:40 | NUR ---
CLOSING NOTES Patient is resting, no signs of acute respiratory distress noted, IV site patent, dressings c/d/i, IVF running. Patient has been NPO past midnight. Call light within reach, bed alarm on, bed at lowest position. All needs met throughout shift. Will endorse care to oncoming shift.
[2020-06-05 07:42] VITALS: BP_SYST 130
--- NOTE | 2020-06-05 07:42 | NUR ---
Opening Note patient in bed resting, no signs of distress noted, respirations even and unlabored, assessment complete, safety measures put in place, bed locked and at low position, call light within reach, fall and aspirations precautions put in place, will monitor patient for any changes.
[2020-06-05 08:11] LABS: TOTAL IRON BIND. CAPACITY 323 ug/dL (250-450)
[2020-06-05] MEDS ORDERED: MODAFINIL 100 MG TABLET (PROVIGIL) PO SCH (09:00)
[2020-06-05] MEDS: DULoxetine HCL 30 MG CAPSULE.DR (CYMBALTA) PO SCH (09:14)
[2020-06-05] MEDS: ATENOLOL 50 MG TABLET (TENORMIN) PO SCH (09:14)
[2020-06-05] MEDS: mycophenolate mofetiL 250 MG CAPSULE PO SCH (09:16)
--- NOTE | 2020-06-05 09:17 | NUR ---
RN Rounds/Medications patient in bed resting, administered medications ordered per MD, patient tolerated well, no other needs at this time, safety measures maintained, bed locked and at low position, call light within reach, fall and aspiration precautions maintained, will continue to monitor patient for any changes.
--- NOTE | 2020-06-05 10:02 | NUR ---
Nutrition Update [place] Scale 16 noted. Pt admitted for anemia. Diet: regular, 2 gm Na BMI: 37.8 kg/m2 RD to follow per nutrition care standards.
--- NOTE | 2020-06-05 11:51 | NUR ---
CONSULTATION PAGED REASON FOR CONSULTATION:ANEMIA WAS CNSULT CALLED?Y PERSON WHO WAS NOTIFIED?NANCY CONSULTING PHYSICIAN:DEVEN SANCHEZ ARMATURE STRAIGHTENER SPECIALTY:ONCOLOGY/HEMOTOLOGY ARMATURE STRAIGHTENER PHONE NUMBER:[phone] REQUESTING PHYSICIAN:KEITH DINERO
[2020-06-05] MEDS: HYDROcodone/ACETAMIN 5-325 MG TAB (NORCO/ VICODIN) PO PRN ×3 (12:06→22:35)
--- NOTE | 2020-06-05 12:06 | NUR ---
RN Rounds/Medication patient in bed resting, helped patient to the restroom, patient tolerated well, administered medication ordered per MD, patient tolerated well, no other needs at this time, will continue to monitor patient for any changes, safety measures maintained.
[2020-06-05 13:34] VITALS: BP_SYST 101
[2020-06-05] MEDS: BACLOFEN 10 MG TABLET PO SCH ×2 (14:00→22:35)
[2020-06-05] MEDS: NACL 0.9% 1,000 ML IV SCH (14:30)
--- NOTE | 2020-06-05 14:35 | NUR ---
RN Rounds patient in bed resting, no other needs at this moment, bed locked and at low position, call light within reach, safety measures maintained.
--- NOTE | 2020-06-05 16:57 | NUR ---
Spoke with MD spoke with Dr. Becerra via phone regarding new medication order for patient and discharging IV fluids.
[2020-06-05] MEDS ORDERED: POTASSIUM CHLORIDE 20 MEQ TAB.PRT.SR PO ONE (17:00)
[2020-06-05 17:23] VITALS: BP_SYST 96
--- NOTE | 2020-06-05 17:23 | NUR ---
RN Rounds/Medications patient in bed resting, administered medication as ordered per MD, patient tolerated well, will continue to monitor patient for any changes, safety measures maintained.
--- NOTE | 2020-06-05 19:06 | NUR ---
Closing Note patient in bed sitting up eating dinner, no signs of distress noted, patient in stable condition, safety measures maintained through out shift, fall and aspiration precautions maintained through out shift, bed locked and at low position, call light within reach, will endorse patient care to oncoming night guard nurse.
--- NOTE | 2020-06-05 19:15 | NUR ---
OPENING NOTES Patient is resting, no signs of acute respiratory distress noted. IV site patent, dressings c/d/i, IVF have been stopped. Call light within reach, bed alarm refused at this time. Patient demonstrates proper usage of call light and has steady gait. Bed at lowest position. Received report that patient has been receiving morphine and norco to relieve pain. Will continue to monitor.
[2020-06-05 20:00] VITALS: BP_SYST 120
[2020-06-05] MEDS: HYDROXYCHLOROQUINE SULFATE 200 MG TABLET PO SCH (20:35)
--- NOTE | 2020-06-05 22:45 | NUR ---
BT INITIATION FOR FIRST UNIT OF BLOOD: Consent signed per PATIENT agreeing to administration of blood. Blood has been type and crossmatched. Blood sent from blood bank. Information on unit of blood checked against patient wristband at bedside by two nurses. All information matches. Patient or responsible democrat informed of potential complications associated with blood transfusion. Informed of possible transfusion reaction symptoms. Aware of need to notify nurse at once of itching, shortness of breath, flushing, feeling of impending doom, or other symptoms not previously present. Vital signs taken within 15 minutes prior to initiation of transfusion. RN will remain with patient for first 15 minutes of transfusion at which time vital signs will be re-assessed.
--- NOTE | 2020-06-05 23:40 | NUR ---
Patient is resting, no signs of reaction to blood transfusion. Blood infusing well to IV site. Call light within reach, bed alarm on, bed at lowest position. Will continue to monitor.
[2020-06-06] VITALS: BP_SYST 122
[2020-06-06] MEDS: ZOLPIDEM TARTRATE 5 MG TABLET PO PRN (01:12)
--- NOTE | 2020-06-06 01:40 | NUR ---
BT INITIATION FOR SECOND UNIT OF BLOOD: Consent signed per PATIENT agreeing to administration of blood. Blood has been type and crossmatched. Blood sent from blood bank. Information on unit of blood checked against patient wristband at bedside by two nurses. All information matches. Patient or responsible constitution party informed of potential complications associated with blood transfusion. Informed of possible transfusion reaction symptoms. Aware of need to notify nurse at once of itching, shortness of breath, flushing, feeling of impending doom, or other symptoms not previously present. Vital signs taken within 15 minutes prior to initiation of transfusion. RN will remain with patient for first 15 minutes of transfusion at which time vital signs will be re-assessed.
[2020-06-06] MEDS: BACLOFEN 10 MG TABLET PO SCH ×3 (06:07→21:22)
[2020-06-06] MEDS: MORPHINE 2 MG/ML INJ. SYRINGE IVP PRN ×3 (06:08→18:54)
--- NOTE | 2020-06-06 06:48 | NUR ---
CLOSING NOTES Patient is resting, no signs of acute respiratory distress noted. IV site patent, dressings c/d/i, 2 units of Blood has been provided to the patient. Call light within reach, bed alarm on, bed at lowest position. Patient states she is comfortable at this time. All needs met throughout shift. Will endorse care to oncoming shift.
--- NOTE | 2020-06-06 07:30 | NUR ---
Opening Note patient in bed resting, a/o x 4, no signs of distress noted, respirations even and unlabored, assessment complete, safety measures put in place, bed locked and at low position, call light within reach, fall and aspirations precautions put in place, will monitor patient for any changes.
[2020-06-06 07:50] VITALS: BP_SYST 123
[2020-06-06] MEDS: ATENOLOL 50 MG TABLET (TENORMIN) PO SCH (09:00)
[2020-06-06] MEDS: mycophenolate mofetiL 250 MG CAPSULE PO SCH (10:03)
[2020-06-06] MEDS: PANTOPRAZOLE SODIUM 40 MG TAB PO SCH ×2 (10:03→21:14)
[2020-06-06] MEDS: DULoxetine HCL 30 MG CAPSULE.DR (CYMBALTA) PO SCH (10:03)
[2020-06-06] MEDS: GABAPENTIN 300 MG CAPSULE PO SCH ×3 (10:03→21:14)
--- NOTE | 2020-06-06 10:03 | NUR ---
RN Rounds/Medication patient in bed resting, no signs of distress noted, administered medications ordered per MD, patient tolerated well, patient refused to take blood pressure medication this morning, all safety precautions maintained, will continue to monitor patient for any changes.
[2020-06-06] MEDS: HYDROcodone/ACETAMIN 5-325 MG TAB (NORCO/ VICODIN) PO PRN ×3 (10:04→21:22)
[2020-06-06] MEDS: SOD FERRIC GLUC COMPLEX/SUC 125 MG in NS 100 ML IV SCH (10:06)
--- NOTE | 2020-06-06 10:37 | NUR ---
MD Rounds Dr. Becerra at bedside assessing patient.
[2020-06-06 12:25] VITALS: BP_SYST 143
--- NOTE | 2020-06-06 13:12 | NUR ---
RN Rounds/Medication patient in bed resting, administered pain medication as ordered per MD, patient tolerated well, safety measures maintained.
--- NOTE | 2020-06-06 15:43 | NUR ---
RN Rounds patient in bed laying down, respirations even and unlabored, administered medications as ordered per MD, patient refused one medication, all other medications patient tolerated well, bed locked and at low position, call light within reach, safety measures maintained.
[2020-06-06 16:22] VITALS: BP_SYST 133
--- NOTE | 2020-06-06 19:10 | NUR ---
Closing Note patient in bed resting, no signs of distress noted, respirations even and unlabored, bed locked and at low position, call light within reach, endorsed patient care to oncoming security shift supervisor nurse.
[2020-06-06 19:35] VITALS: BP_SYST 141
--- NOTE | 2020-06-06 19:35 | NUR ---
INITIAL NOTES PATIENT IS STABLE AND SITTING IN BED. NO S/S OF RESPIRATORY DISTRESS NOTED. CALL LIGHT IN REACH. PATIENT SUCCESSFULLY DEMONSTRATES USAGE OF CALL LIGHT. BED IS LOCKED, AND AT THE LOWEST POSITION. PATIENT EDUCATED ON BED ALARM, PT REFUSED. FALL, SAFETY, ASPIRATION, AND RESPIRATORY PRECAUTIONS WILL BE IN PLACE THROUGHOUT THE SHIFT.
[2020-06-06] MEDS: HYDROXYCHLOROQUINE SULFATE 200 MG TABLET PO SCH (21:14)
--- NOTE | 2020-06-06 21:35 | NUR ---
PATIENT IS STABLE AND SITTING IN BED ON HER PHONE. NO S/S OF RESPIRATORY DISTRESS NOTED. CALL LIGHT IN REACH.
--- NOTE | 2020-06-06 23:35 | NUR ---
PATIENT IS STABLE AND LAYING IN BED. PATIENT IS WATCHING TV. NO S/S OF RESPIRATORY DISTRESS NOTED. CALL LIGHT IN REACH.
[2020-06-07] MEDS: MORPHINE 2 MG/ML INJ. SYRINGE IVP PRN ×5 (00:22→22:33)
--- NOTE | 2020-06-07 01:35 | NUR ---
PATIENT IS STABLE AND SLEEPING IN BED. NO S/S OF RESPIRATORY DISTRESS NOTED. CALL LIGHT IN REACH.
[2020-06-07 01:39] VITALS: BP_SYST 138
--- NOTE | 2020-06-07 03:35 | NUR ---
PATIENT IS SLEEPING IN BED AND STABLE. NO S/S OF RESPIRATORY DISTRESS NOTED. CALL LIGHT IN REACH.
--- NOTE | 2020-06-07 05:35 | NUR ---
PATIENT IS STABLE AND LAYING IN BED. PATIENT EDUCATED ON BACLOFEN, PT REFUSED MEDICATION. NO S/S OF RESPIRATORY DISTRESS NOTED. CALL LIGHT IN REACH.
[2020-06-07] MEDS: BACLOFEN 10 MG TABLET PO SCH ×3 (05:46→21:11)
--- NOTE | 2020-06-07 06:36 | NUR ---
CLOSING NOTES PATIENT IS STABLE AND RESTING IN BED. NO S/S OF RESPIRATORY DISTRESS NOTED. CALL LIGHT IN REACH. BED IS LOCKED, AND AT THE LOWEST POSITION. FALL, SAFETY, ASPIRATION, AND RESPIRATORY PRECAUTIONS HAS BEEN IN PLACE THROUGHOUT THE SHIFT. WILL CONTINUE TO MONITOR UNTIL SBAR REPORT IS ENDORSED TO AM NURSE BY BEDSIDE.
[2020-06-07] MEDS: GABAPENTIN 300 MG CAPSULE PO SCH ×3 (07:57→21:11)
[2020-06-07] MEDS: PANTOPRAZOLE SODIUM 40 MG TAB PO SCH ×2 (07:57→21:11)
[2020-06-07] MEDS: DULoxetine HCL 30 MG CAPSULE.DR (CYMBALTA) PO SCH (07:57)
[2020-06-07] MEDS: ATENOLOL 50 MG TABLET (TENORMIN) PO SCH (07:57)
[2020-06-07] MEDS: mycophenolate mofetiL 250 MG CAPSULE PO SCH (07:58)
--- NOTE | 2020-06-07 07:58 | NUR ---
Opening Notes/Morphine Patient is awake, alert and oriented x4. No resp distress noted. Breathing is even and unlabored. Patient is c/o 8/10 bilateral leg pain, requesting pain meds. Administered Morphine 2 mg IVP, tolerated well. Pt reports the pain in constant. IV site on left hand, 20 gauge intact at this time, flushing well. Dressing is clean and dry. Patient is ambulatory, steady gait. Pt denies any NVD, cough or abnormal bleeding. All needs met at this time. Safety and fall precautions in place. Call light within reach. Bed in lowest position, locked. Will continue to monitor.
[2020-06-07 08:00] VITALS: BP_SYST 115
--- NOTE | 2020-06-07 08:15 | NUR ---
Patient is being seen and examined by DR. IBARRA
[2020-06-07] MEDS: SOD FERRIC GLUC COMPLEX/SUC 125 MG in NS 100 ML IV SCH (09:29)
[2020-06-07] MEDS: HYDROcodone/ACETAMIN 5-325 MG TAB (NORCO/ VICODIN) PO PRN ×3 (09:37→19:50)
--- NOTE | 2020-06-07 09:40 | NUR ---
[place] 5-325 mg Patient is c/o breakthrough pain on bilateral legs. Patient is noted grimacing and holding/guarding left leg. Reports pain is 8/10, pain is unrelieved from Morphine given earlier. Administered [place] 5-325 mg, tolerated well. Will continue to monitor.
--- NOTE | 2020-06-07 10:26 | NUR ---
Notes Patient is laying in bed, resting at this time. No resp distress noted. Breathing is even and unlabored. No signs of pain at this time. Will continue to monitor.
[2020-06-07 12:10] VITALS: BP_SYST 112
[2020-06-07 12:24] LABS: BASOPHILS % (AUTO) 0.4 % (0.0-2.0); EOSINOPHILS # (AUTO) 0.2 K/uL (0.0-0.4); EOSINOPHILS % (AUTO) 2.1 % (0.0-4.0); HEMATOCRIT 28.6 % (36-48); HEMOGLOBIN 9.5 g/dL (12.0-16.0); LYMPHOCYTES # (AUTO) 2.1 K/uL (1.0-5.5); LYMPHOCYTES % (AUTO) 22.8 % (20.5-51.5); MEAN CORPUSCULAR HEMOGLOBIN 28 pg (27-31); MEAN CORPUSCULAR HGB CONC 33 % (32-36); MEAN CORPUSCULAR VOLUME 82 fL (79.0-98.0); MONOCYTES # (AUTO) 0.9 K/uL (0.0-1.0); MONOCYTES % (AUTO) 9.5 % (1.7-9.3); NEUTROPHILS # (AUTO) 5.9 K/uL (1.8-7.7); NEUTROPHILS % (AUTO) 65.2 % (40.0-70.0); PLATELET COUNT (AUTO) 273 K/uL (130-430); RED BLOOD CELL COUNT(AUTO) 3.48 MIL/uL (4.2-6.2); RED CELL DISTRIBUTION WIDTH 18.9 % (9.0-15.0); WHITE BLOOD COUNT (AUTO) 9.1 K/uL (4.8-10.8)
--- NOTE | 2020-06-07 12:30 | NUR ---
Notes/Morphine Pt is laying in bed, resting. Patient is c/o 8/10 bilateral leg pain and right side abdominal pain, requesting pain meds. Administered Morphine 2 mg IVP, tolerated well. Pt reports the pain in constant. No resp distress noted. Breathing is even and unlabored. Will continue to monitor.
[2020-06-07 12:34] LABS: CALCIUM 8.1 mg/dL (8.4-11.0); CREATININE 0.72 mg/dL (0.55-1.30); POTASSIUM 3.7 mmol/L (3.5-5.1)
[2020-06-07 12:40] LABS: TOTAL BILIRUBIN 0.5 mg/dL (0.0-1.0)
--- NOTE | 2020-06-07 14:45 | NUR ---
Notes Patient is sleeping at this time. No resp distress noted. Breathing is even and unlabored. C/o discomfort in legs, will wait for pain meds. All needs met. Will continue to monitor.
--- NOTE | 2020-06-07 15:15 | NUR ---
[place] 5-325 mg Patient is c/o breakthrough pain on bilateral legs. Patient is noted grimacing and holding/guarding left leg. Reports pain is 8/10, pain is unrelieved from Morphine given earlier. Administered [place] 5-325 mg, tolerated well. Will continue to monitor.
[2020-06-07 16:19] VITALS: BP_SYST 124
--- NOTE | 2020-06-07 17:25 | NUR ---
Morphine Patient is c/o 8/10 bilateral leg pain, requesting pain meds. Administered Morphine 2 mg IVP, tolerated well. Pt reports the pain in constant. Will continue to monitor.
--- NOTE | 2020-06-07 18:46 | NUR ---
Closing Notes Patient is awake, alert and oriented x4. No resp distress noted. Breathing is even and unlabored at this time. Pt denies any pain at this time. IV site on left hand, 20 gauge, intact, saline lock. Flushing well, no infiltration noted. Patient reports: urinating x5, bowel movements x4. Patient is ambulatory, steady gait. All needs met at this time. Safety and fall precautions in place. Bed in lowest position, alarm on, locked. Will continue to monitor.
--- NOTE | 2020-06-07 19:20 | NUR ---
INITIAL NOTES PLAN OF CARE EXPLAINED TO THE PATIENT. PATIENT STATES SHE HAS NO RIDE AND ISN'T FEELING WELL. WILL INFORM THE DOCTOR. PATIENT VITAL IS STABLE. NO S/S OF RESPIRATORY DISTRESS NOTED. CALL LIGHT IN REACH. PATIENT SUCCESSFULLY DEMONSTRATES USAGE OF CALL LIGHT. BED IS LOCKED, AND AT THE LOWEST POSITION. PATIENT EDUCATED ON BED ALARM, PT REFUSED. FALL, SAFETY, ASPIRATION, AND RESPIRATORY PRECAUTIONS WILL BE IN PLACE THROUGHOUT THE SHIFT.
[2020-06-07 19:30] VITALS: BP_SYST 138
--- NOTE | 2020-06-07 19:45 | NUR ---
REFUSED FLU SHOT AT THIS TIME PT EDUCATED ON FLU SHOT. PT REFUSED FLU SHOT AT THIS TIME. PT STATES SHE WANTS IT LATER.
--- NOTE | 2020-06-07 20:03 | NUR ---
COMMUNICATED WITH DR. LANIER MADE AWARE PT WAS UNABLE TO FIND A RIDE AND HAD DIARRHEA WITH BLOOD AND MUCUS IN STOOL. MD STATED TO HOLD DISCHARGE AND THEY WILL DECIDE IN THE MORNING.
[2020-06-07] MEDS: ZOLPIDEM TARTRATE 5 MG TABLET PO PRN (21:11)
[2020-06-07] MEDS: HYDROXYCHLOROQUINE SULFATE 200 MG TABLET PO SCH (21:11)
--- NOTE | 2020-06-07 22:03 | NUR ---
PATIENT IS STABLE AND LAYING IN BED. NO S/S OF RESPIRATORY DISTRESS NOTED. CALL LIGHT IN REACH.
[2020-06-08 00:24] VITALS: BP_SYST 136
[2020-06-08] MEDS: HYDROcodone/ACETAMIN 5-325 MG TAB (NORCO/ VICODIN) PO PRN ×4 (01:38→18:55)
[2020-06-08] MEDS: BACLOFEN 10 MG TABLET PO SCH ×3 (05:10→23:46)
--- NOTE | 2020-06-08 06:01 | NUR ---
DR. ALLEN AT BEDSIDE. STATED TO GET A STOOL OCCULT.
--- NOTE | 2020-06-08 06:12 | NUR ---
CLOSING NOTES PATIENT IS STABLE AND LAYING IN BED. NO S/S OF RESPIRATORY DISTRESS NOTED. CALL LIGHT IN REACH. BED IS LOCKED, AND AT THE LOWEST POSITION. FALL, SAFETY, ASPIRATION, AND RESPIRATORY PRECAUTIONS HAD BEEN IN PLACE THROUGHOUT THE SHIFT. WILL CONTINUE TO MONITOR UNTIL SBAR REPORT IS ENDORSED TO AM NURSE BY BEDSIDE.
[2020-06-08 06:14] LABS: BASOPHILS # (AUTO) 0.1 K/uL (0.0-0.2); BASOPHILS % (AUTO) 0.6 % (0.0-2.0); EOSINOPHILS # (AUTO) 0.2 K/uL (0.0-0.4); EOSINOPHILS % (AUTO) 2.5 % (0.0-4.0); HEMATOCRIT 29.2 % (36-48); HEMOGLOBIN 9.3 g/dL (12.0-16.0); LYMPHOCYTES # (AUTO) 2.5 K/uL (1.0-5.5); LYMPHOCYTES % (AUTO) 30.8 % (20.5-51.5); MEAN CORPUSCULAR HEMOGLOBIN 27 pg (27-31); MEAN CORPUSCULAR HGB CONC 32 % (32-36); MEAN CORPUSCULAR VOLUME 84 fL (79.0-98.0); MONOCYTES # (AUTO) 0.8 K/uL (0.0-1.0); MONOCYTES % (AUTO) 9.5 % (1.7-9.3); NEUTROPHILS # (AUTO) 4.6 K/uL (1.8-7.7); NEUTROPHILS % (AUTO) 56.6 % (40.0-70.0); PLATELET COUNT (AUTO) 272 K/uL (130-430); RED BLOOD CELL COUNT(AUTO) 3.48 MIL/uL (4.2-6.2); RED CELL DISTRIBUTION WIDTH 19.1 % (9.0-15.0); WHITE BLOOD COUNT (AUTO) 8.2 K/uL (4.8-10.8)
[2020-06-08 06:47] LABS: CALCIUM 8.3 mg/dL (8.4-11.0); CREATININE 0.82 mg/dL (0.55-1.30)
--- NOTE | 2020-06-08 07:15 | NUR ---
OPENING NOTE RECEIVED BEDSIDE SBAR FROM NIGHT RN, PATIENT IN BED, RESPIRATIONS EVEN, NON LABORED, BED IN LOW AND LOCKED POSITION, CALL LIGHT WITHIN REACH, BED ALARM ON
--- NOTE | 2020-06-08 08:00 | NUR ---
nurse note obtained vs, patient in bed, eyes closed, respirations even, non labored, bed din low and locked position, call light within reach
[2020-06-08] MEDS: SOD FERRIC GLUC COMPLEX/SUC 125 MG in NS 100 ML IV SCH (09:38)
[2020-06-08] MEDS: PANTOPRAZOLE SODIUM 40 MG TAB PO SCH ×2 (09:38→20:47)
[2020-06-08] MEDS: mycophenolate mofetiL 250 MG CAPSULE PO SCH (09:39)
[2020-06-08] MEDS: DULoxetine HCL 30 MG CAPSULE.DR (CYMBALTA) PO SCH (09:39)
[2020-06-08] MEDS: ATENOLOL 50 MG TABLET (TENORMIN) PO SCH (09:42)
[2020-06-08] MEDS: GABAPENTIN 300 MG CAPSULE PO SCH ×3 (09:42→20:41)
--- NOTE | 2020-06-08 09:45 | NUR ---
nurse note administered morning medications, patient complains of pain to back, repositioned patient, patient requested pain medication
[2020-06-08 10:10] VITALS: BP_SYST 132
[2020-06-08] MEDS ORDERED: CYANOCOBALAMIN 1000 mCg TABLET PO ONE (10:45)
--- NOTE | 2020-06-08 11:00 | NUR ---
md rounds DR. HANNON BEDSIDE EXAMINING PATIENT
[2020-06-08 11:35] VITALS: BP_SYST 148
--- NOTE | 2020-06-08 11:45 | NUR ---
NURSE NOTE PATIENT COMPLAINING OF BACK PAIN, REPOSITIONED PATIENT, PATIENT REQUESTING PAIN MEDICATION
[2020-06-08] MEDS: MORPHINE 2 MG/ML INJ. SYRINGE IVP PRN ×3 (12:05→20:42)
[2020-06-08 15:35] VITALS: BP_SYST 136
--- NOTE | 2020-06-08 16:00 | NUR ---
nurse note patient complaining of pain to back, repositioned patient, patient requesting pain medication
--- NOTE | 2020-06-08 18:30 | NUR ---
NURSE NOTE PATIENT IN BED, RESPIRATIONS EVEN, NON LABORED, BED IN LOW AND LOCKED POSITION, CALL LIGHT WITHIN REACH, BED ALARM ON, PATIENT COMPLAINING OF PAIN TO THE BACK, REPOSITIONED, REQUESTED PAIN MEDICATION
--- NOTE | 2020-06-08 19:20 | NUR ---
CLOSING NOTES PROVIDED BEDSIDE SBAR TO NIGHT RN, PATIENT IN BED, RESPIRATIONS EVEN, NON LABORED, BED IN LOW AND LOCKED POSITION, CALL LIGHT WITHIN REACH, BED ALARM ON. ENDORSED CARE TO NIGHT RN
--- NOTE | 2020-06-08 19:30 | NUR ---
OPENING NOTES: Received report from dayshift nurse. Patient is laying in bed alert and oriented x 4 with no s/s of distress, on room air. She has an IV on left hand with dry and intact dressing. Patient does not have any concerns at this time. Bed is locked, in the lowest position, and call light within reach.
[2020-06-08 20:00] VITALS: BP_SYST 131
[2020-06-08] MEDS: HYDROXYCHLOROQUINE SULFATE 200 MG TABLET PO SCH (20:41)
--- NOTE | 2020-06-08 20:42 | NUR ---
MEDIATION ADMINISTRATION: Patient is in bed with no s/s of distress, c/o pain of her entire body. Administered medications as ordered by , pt tolerated well. I educated patient about the potential side effects of opioid medications such as drowsiness and constipation, she verbalized understanding and does not have any questions or concerns at this time. Will continue to monitor patient.
--- NOTE | 2020-06-08 22:50 | NUR ---
REQUESTING AMBIEN: Patient called requesting Ambien. I informed patient I am currently in another room but will be with her as soon as I can.
--- NOTE | 2020-06-08 23:45 | NUR ---
MEDICATION ADMINISTRATION: Administered Ambien as ordered by physician. Educated patient about the effects and potential side effects of Ambien and advised her to use call light for assistance when ambulating to the bathroom if she experiences drowsiness. She verbalized understanding.
[2020-06-08] MEDS: ZOLPIDEM TARTRATE 5 MG TABLET PO PRN (23:46)
[2020-06-09] VITALS: BP_SYST 129
[2020-06-09] MEDS: HYDROcodone/ACETAMIN 5-325 MG TAB (NORCO/ VICODIN) PO PRN ×3 (01:40→15:00)
--- NOTE | 2020-06-09 01:40 | NUR ---
RN ROUNDS / MEDICATION ADMINISTRATION: Patient is c/o bilateral lower extremity pain and is requesting [place]. I have administered medication as ordered by MD, she tolerated well. Will continue to monitor patient. Bed is in the lowest position and call light within reach.
--- NOTE | 2020-06-09 03:00 | NUR ---
RN ROUNDS: Patient is laying in bed and appears to be asleep. She is not exhibiting any s/s of distress or discomfort. Bed is locked and in the lowest position, call light within reach. Will continue to monitor patient.
[2020-06-09] MEDS: BACLOFEN 10 MG TABLET PO SCH ×2 (05:24→15:00)
[2020-06-09] MEDS: MORPHINE 2 MG/ML INJ. SYRINGE IVP PRN ×2 (05:28→13:15)
--- NOTE | 2020-06-09 06:38 | NUR ---
CLOSING NOTE: Patient is laying in bed alert and oriented x 4 with no s/s of distress, on room air. She has an IV on left hand with dry and intact dressing, patent and intact. Bed is locked, in the lowest position, and call light within reach. All needs were met throughout shift. Will endorse to dayshift nurse.
[2020-06-09 08:00] VITALS: BP_SYST 118
--- NOTE | 2020-06-09 08:10 | NUR ---
OPENING NOTE PATIENT ALERT, AWAKE AND ORIENTED X4. AMBULATORY AND ABLE TO MAKE NEEDS KNOWN. SELF FEEDING FOR BREAKFAST. DENIES PAIN AT THIS TIME, WILL CONTINUE TO MONITOR.
[2020-06-09] MEDS ORDERED: CYANOCOBALAMIN 1000 mCg TABLET PO SCH (09:00)
[2020-06-09] MEDS: PANTOPRAZOLE SODIUM 40 MG TAB PO SCH (09:01)
[2020-06-09] MEDS: DULoxetine HCL 30 MG CAPSULE.DR (CYMBALTA) PO SCH (09:02)
[2020-06-09] MEDS: GABAPENTIN 300 MG CAPSULE PO SCH ×2 (09:03→15:00)
[2020-06-09] MEDS: ATENOLOL 50 MG TABLET (TENORMIN) PO SCH (09:03)
[2020-06-09] MEDS: mycophenolate mofetiL 250 MG CAPSULE PO SCH (09:03)
[2020-06-09] MEDS: SOD FERRIC GLUC COMPLEX/SUC 125 MG in NS 100 ML IV SCH (09:03)
--- NOTE | 2020-06-09 10:00 | NUR ---
TOLERATED BREAKFAST WELL. DENIES NAUSEA. PAIN MEDICATION ADMINISTERED ORDERED. WILL CONTINUE TO MONITOR.
--- NOTE | 2020-06-09 12:00 | NUR ---
PATIENT ASLEEP AT THIS TIME. NO SIGN OF DISTRESS NOTED. WILL CONTINUE TO MONITOR.
[2020-06-09 12:10] VITALS: BP_SYST 120
--- NOTE | 2020-06-09 14:00 | NUR ---
PATIENT GIVEN DISCHARGE INSTRUCTIONS. TO FOLLOW UP WITH PCP. IV ACCESS DISCONTINUED. TIP INTACT, NO BLEEDING NOTED. PAIN MEDICATION GIVEN ORDERED FOR PAIN. WILL CONTINUE TO MONITOR. PATIENT'S MOTHER CALLED TO WILLOW MACHINE OPERATOR PATIENT FOR DISCHARGE. CHARGE NURSE, DENNYS MADE AWARE. WILL CONTINUE TO MONITOR.
[2020-06-09 15:06] VITALS: BP_SYST 133
--- NOTE | 2020-06-09 16:03 | NUR ---
PATIENT DISCHARGES. PATIENT LEFT UNIT WITH ALL HER BELONGINGS AND HAND BAG, VIA WHEELCHAIR TO HER MOTHER.
[2020-06-09 16:09] VITALS: BP_SYST 133
== END 2020-06-09 16:20 | disposition home or self-care (01) | DRG 663 ==
LOC: SED 13:43 → STU 17:29 → SMU 06-06 10:44
PROVIDERS: ADMIT Internal Medicine; ATTEND Internal Medicine
PROC: 30233R1 Transfusion of Nonautologous Platelets into Peripheral Vein, Percutaneous Approach (ICD-10-PCS; principal; 2020-06-05)
DX: D50.9 Iron deficiency anemia, unspecified (principal); E87.6 Hypokalemia; M32.9 Systemic lupus erythematosus, unspecified; M06.9 Rheumatoid arthritis, unspecified; I47.1 Supraventricular tachycardia; E06.3 Autoimmune thyroiditis; M34.9 Systemic sclerosis, unspecified; E66.9 Obesity, unspecified; K51.90 Ulcerative colitis, unspecified, without complications; I10 Essential (primary) hypertension; R19.7 Diarrhea, unspecified; Z20.828 Contact with and (suspected) exposure to other viral communicable diseases; K90.9 Intestinal malabsorption, unspecified; K21.00 Gastro-esophageal reflux disease with esophagitis, without bleeding; Z68.37 Body mass index [BMI] 37.0-37.9, adult
CPT/HCPCS: 36415; 72100-TC; 80048; 80053; 82272; 83540-TC; 83550-TC; 85025; 85610-TC; 86886; 86900; 86901; 86920; 93970; 96361; 96374; 99285; G0378; J1885; J2270; J2916; J7030; J7050; J7060; J7517; P9021

== ENCOUNTER 2020-06-12 12:54 | Emergency (ER) | payer OTHER, SELFPAY ==
[~2020-06-12] VITALS: Ht 165.1 cm; Wt 102.1 kg
[2020-06-12 13:05] VITALS: BP_SYST 148
[2020-06-12 13:39] VITALS: BP_SYST 148
== END 2020-06-12 13:35 | disposition home or self-care (01) ==
LOC: SED 12:54
DX: L03.114 Cellulitis of left upper limb (principal); I10 Essential (primary) hypertension; Z86.2 Personal history of diseases of the blood and blood-forming organs and certain disorders involving the immune mechanism; Z79.899 Other long term (current) drug therapy
CPT/HCPCS: 99283

== ENCOUNTER 2020-07-09 16:45 | Emergency (ER) | payer OTHER ==
[~2020-07-09] VITALS: Ht 165.1 cm; Wt 98.9 kg
--- NOTE | 2020-07-09 16:45 | NUR ---
Patient to ER bed 1 to gown for evaluation. Side rails up.
--- NOTE | 2020-07-09 16:50 | NUR ---
Pt walked in to ER with c/o SOB x 3 days. Denies any chest pain at this time. V/S stable, pt is afebrile. Currently resting in bed, will continue to monitor.
[2020-07-09 17:01] VITALS: BP_SYST 153
--- NOTE | 2020-07-09 17:10 | NUR ---
ER Dr. Echeverria at bedside examining patient.
[2020-07-09] MEDS ORDERED: ALBUTEROL SULFATE 0.083% 2.5 MG/3 ML VIAL.NEB INH ONE ×2 (17:15→18:01)
--- NOTE | 2020-07-09 17:15 | NUR ---
Radiology at bedside for CXR
--- NOTE | 2020-07-09 17:43 | NUR ---
Respiratory at bedside for breathing treatment.
[2020-07-09 18:20] LABS: BASOPHILS % (AUTO) 0.3 % (0.0-2.0); EOSINOPHILS # (AUTO) 0.1 K/uL (0.0-0.4); EOSINOPHILS % (AUTO) 1.8 % (0.0-4.0); HEMATOCRIT 25.1 % (36-48); HEMOGLOBIN 8.1 g/dL (12.0-16.0); LYMPHOCYTES # (AUTO) 1.9 K/uL (1.0-5.5); LYMPHOCYTES % (AUTO) 26.9 % (20.5-51.5); MEAN CORPUSCULAR HEMOGLOBIN 26 pg (27-31); MEAN CORPUSCULAR HGB CONC 32 % (32-36); MEAN CORPUSCULAR VOLUME 82 fL (79.0-98.0); MONOCYTES # (AUTO) 0.6 K/uL (0.0-1.0); MONOCYTES % (AUTO) 8.5 % (1.7-9.3); NEUTROPHILS # (AUTO) 4.3 K/uL (1.8-7.7); NEUTROPHILS % (AUTO) 62.5 % (40.0-70.0); PLATELET COUNT (AUTO) 292 K/uL (130-430); RED BLOOD CELL COUNT(AUTO) 3.07 MIL/uL (4.2-6.2); RED CELL DISTRIBUTION WIDTH 18.8 % (9.0-15.0); WHITE BLOOD COUNT (AUTO) 6.9 K/uL (4.8-10.8)
[2020-07-09 18:37] LABS: ANION GAP 11 (5-15); CALCIUM 8.7 mg/dL (8.4-11.0); CHLORIDE 104 mmol/L (98-107); CREATININE 0.88 mg/dL (0.55-1.30); GLUCOSE 93 mg/dL (70-99); POTASSIUM 3.6 mmol/L (3.5-5.1); SODIUM SERUM 141 mmol/L (136-145); UREA NITROGEN, BLOOD 17 mg/dL (8-21)
[2020-07-09 18:46] LABS: ALANINE AMINOTRANSFERASE 47 U/L (12-78); ALBUMIN 4.1 g/dL (3.4-4.8); ASPARTATE AMINOTRANSFERASE 20 U/L (10-37); TOTAL BILIRUBIN 0.4 mg/dL (0.0-1.0)
[2020-07-09 18:51] LABS: GFR AFRICAN AMERICAN 87 mL/min (>90)
--- NOTE | 2020-07-09 19:25 | NUR ---
Care of pt endorsed to YAW Marino. Pt currently resting in bed, no distress noted.
--- NOTE | 2020-07-09 19:35 | NUR ---
Patient care endorsed to me. VSS. Will continue to monitor.
--- NOTE | 2020-07-09 20:05 | NUR ---
Patient complaining of generalized body pain. Will notify ER .
[2020-07-09] MEDS ORDERED: KETOROLAC TROMETHAMINE 30 MG VIAL IVP ONE (20:15)
[2020-07-09] MEDS ORDERED: KETOROLAC TROMETHAMINE 30 MG VIAL IM ONE ×2 (20:30)
--- NOTE | 2020-07-09 20:35 | NUR ---
Pain medication given per MD order. Will reassess.
[2020-07-09 21:15] VITALS: BP_SYST 145
--- NOTE | 2020-07-09 21:15 | NUR ---
Patient given written and verbal discharge instructions and verbalizes understanding. ER MD Echeverria discussed with patient the results and treatment provided. Patient in stable condition. ID arm band removed. Patient educated on pain management and to follow up with PMD. Opportunity for questions provided and answered. Medication side effect fact sheet provided.
[2020-07-10] MEDS ORDERED: MODA100T31 PO (12:35)
[2020-07-10] MEDS ORDERED: HYDR-4274 PO (12:35)
[2020-07-10] MEDS ORDERED: ZOLP10TA2 PO (12:35)
== END 2020-07-09 21:15 | disposition home or self-care (01) ==
LOC: SED 16:45
DX: R06.02 Shortness of breath (principal); I10 Essential (primary) hypertension; Z86.2 Personal history of diseases of the blood and blood-forming organs and certain disorders involving the immune mechanism; Z86.73 Personal history of transient ischemic attack (TIA), and cerebral infarction without residual deficits; Z79.899 Other long term (current) drug therapy
CPT/HCPCS: 36415; 71045; 80053; 84484; 85025; 93005; 94640; 96372; 99285; J1885; J7613

== ENCOUNTER 2020-07-10 10:47 | Inpatient (IN) | payer OTHER, SELFPAY ==
[~2020-07-10] VITALS: Ht 165.1 cm; Wt 98.9 kg
[2020-07-10 11:04] VITALS: BP_SYST 139
--- NOTE | 2020-07-10 11:11 | NUR ---
Patient to ER bed 4 to gown for evaluation. Side rails up. Report given to Fani TIDWELL.
--- NOTE | 2020-07-10 11:15 | NUR ---
Pt walked in to ER with c/o generalized weakness and body aches x 4 weeks. Reports h/o anemia and lupus. V/S stable, pt is afebrile. Currently resting in bed, will continue to monitor.
--- NOTE | 2020-07-10 11:27 | NUR ---
ER Dr. Corrigan at bedside examining patient.
--- NOTE | 2020-07-10 11:42 | NUR ---
Lab at bedside for blood draw.
--- NOTE | 2020-07-10 11:51 | NUR ---
UP AMBULATING TO BATHROOM, STEADY GAIT, NO DISTRESS, RESP UNLABORED
[2020-07-10 12:00] LABS: BASOPHILS % (AUTO) 0.8 % (0.0-2.0); EOSINOPHILS # (AUTO) 0.1 K/uL (0.0-0.4); EOSINOPHILS % (AUTO) 1.3 % (0.0-4.0); HEMATOCRIT 24.8 % (36-48); HEMOGLOBIN 7.8 g/dL (12.0-16.0); LYMPHOCYTES # (AUTO) 1.6 K/uL (1.0-5.5); LYMPHOCYTES % (AUTO) 27.2 % (20.5-51.5); MEAN CORPUSCULAR HEMOGLOBIN 26 pg (27-31); MEAN CORPUSCULAR HGB CONC 32 % (32-36); MEAN CORPUSCULAR VOLUME 82 fL (79.0-98.0); MONOCYTES # (AUTO) 0.5 K/uL (0.0-1.0); MONOCYTES % (AUTO) 7.9 % (1.7-9.3); NEUTROPHILS # (AUTO) 3.6 K/uL (1.8-7.7); NEUTROPHILS % (AUTO) 62.8 % (40.0-70.0); PLATELET COUNT (AUTO) 326 K/uL (130-430); RED BLOOD CELL COUNT(AUTO) 3.03 MIL/uL (4.2-6.2); RED CELL DISTRIBUTION WIDTH 18.8 % (9.0-15.0); WHITE BLOOD COUNT (AUTO) 5.7 K/uL (4.8-10.8)
[2020-07-10 12:05] LABS: BILIRUBIN,URINE NEGATIVE (NEGATIVE); BLOOD, URINE NEGATIVE (NEGATIVE); CLARITY/URINE CLEAR (CLEAR); COLOR,URINE YELLOW (YELLOW); GLUCOSE,URINE NEGATIVE (NEGATIVE); KETONES,URINE NEGATIVE (NEGATIVE); LEUKOCYTE ESTERASE ,URINE NEGATIVE (NEGATIVE); NITRITE, URINE NEGATIVE (NEGATIVE); PH,URINE 5.5 (5.0-8.0); PROTEIN URINE NEGATIVE (NEGATIVE); UROBILINOGEN,URINE 0.2 (0.2-1.0)
[2020-07-10 12:06] LABS: CALCIUM 8.4 mg/dL (8.4-11.0); CREATININE 0.95 mg/dL (0.55-1.30); POTASSIUM 3.7 mmol/L (3.5-5.1)
[2020-07-10 12:12] LABS: ALBUMIN 3.9 g/dL (3.4-4.8); TOTAL BILIRUBIN 0.3 mg/dL (0.0-1.0)
--- NOTE | 2020-07-10 12:30 | NUR ---
Covid swab collected and sent to lab
--- NOTE | 2020-07-10 12:30 | NUR ---
DR SALMERON IN TO REASSESS
[2020-07-10] MEDS ORDERED: MODA100T31 PO (12:35)
[2020-07-10] MEDS ORDERED: ZOLP10TA2 PO (12:35)
[2020-07-10] MEDS ORDERED: HYDR-4274 PO (12:35)
[2020-07-10] MEDS ORDERED: HYDROcodone/ACETAMIN 5-325 MG TAB (NORCO/ VICODIN) PO ONE (13:00)
--- NOTE | 2020-07-10 13:43 | NUR ---
ADMIT ORDERS RECEIVED
[2020-07-10] MEDS ORDERED: FUROSEMIDE 20 MG/2 ML VIAL IVP ONE (13:45)
--- NOTE | 2020-07-10 13:46 | NUR ---
TT Charge nurseDeborah to request a bed, she will call us back
--- NOTE | 2020-07-10 14:54 | NUR ---
Spoke w/ Deborah. Unable to get bed assignment
--- NOTE | 2020-07-10 16:25 | NUR ---
CONSENT FOR BLOOD SIGNED WITH REQUEST TO BLOOD BANK
--- NOTE | 2020-07-10 17:01 | NUR ---
Patient will be admitted to care of Dr. Jolley. Admitted to Med Surg unit. Will go to room 118-a. Belongings list completed. Complete and up to date summary report printed. SBAR report to be given at bedside with opportunity for questions. IV 20g LAC, patent and infusing well.
--- NOTE | 2020-07-10 17:08 | NUR ---
ADMISSION NOTE Received patient from ER via qian, received report from JARON TIDWELL. Patient admitted with diagnosis of SEVERE ANEMIA, LUPUS, HYPERTENSION. Patient oriented to hospital routine, call light, toileting and safety-patient verbalized understanding.
[2020-07-10 17:22] VITALS: BP_SYST 132
--- NOTE | 2020-07-10 17:42 | NUR ---
Lab called, blood is ready, will clam picker. prepping tubing. Consent is signed and in chart.
--- NOTE | 2020-07-10 18:10 | NUR ---
1st unit of transfusion began at 1810, temp 97.1, pulse 93, rr 18, 142/78. I will reassess patient again in 15 mins. Patient was explained what to expect and what anaphylactic reactions to look out for and report.
--- NOTE | 2020-07-10 18:25 | NUR ---
Transfusion 15 mins after initial transfusion, vitals were 142/78, rr18, temp 97.1, pulse 93. Patient denies chills or new back pain or any other sign of distress or reaction. I will increase the ml/hr as long as it is tolerated. Bed is low, locked, 2 side rails are up and call light is within reach.
[2020-07-10] MEDS ORDERED: ZOLPIDEM TARTRATE 5 MG TABLET PO SCH (18:45)
[2020-07-10] MEDS ORDERED: ONDANSETRON 4 MG ODT TAB PO PRN (18:45)
--- NOTE | 2020-07-10 19:23 | NUR ---
Closing notes: Patient is awake, alert and oriented. Patient is not showing any signs of distress at this time. Patient is currently receiving a blood transfusion via her patent IV 20g. Patient is tolerating it well. Patient is ambulatory and handled her meal well. Patient has some pain prior to infusion, said she would put in the [place], waiting for order. I will give report to the overnight cashier nurse. Bed is low, locked, 2 side rails are up and call light is within reach.
--- NOTE | 2020-07-10 19:25 | NUR ---
OPENING NOTES RECEIVED PATIENT FROM MORNING SHIFT NURSE, PATIENT CURRENTLY RECEIVING 1ST UNIT OF PRBC AND TO RECEIVE TWO TOTAL. IV SITE PATENT, DRESSINGS C/D/I, INFUSING WELL. CALL LIGHT WITHIN REACH, BED ALARM ON, BED AT LOWEST POSITION. WILL CONTINUE TO MONITOR.
[2020-07-10 20:00] VITALS: BP_SYST 125
--- NOTE | 2020-07-10 20:20 | NUR ---
BT INITIATION: Consent signed per PATIENT agreeing to administration of blood. Blood has been type and crossmatched. Blood sent from blood bank. Information on unit of blood checked against patient wristband at bedside by two nurses. All information matches. Patient or responsible libertarian informed of potential complications associated with blood transfusion. Informed of possible transfusion reaction symptoms. Aware of need to notify nurse at once of itching, shortness of breath, flushing, feeling of impending doom, or other symptoms not previously present. Vital signs taken within 15 minutes prior to initiation of transfusion. RN will remain with patient for first 15 minutes of transfusion at which time vital signs will be re-assessed.
[2020-07-10] MEDS: GABAPENTIN 300 MG CAPSULE PO SCH (20:23)
[2020-07-10] MEDS: PANTOPRAZOLE SODIUM 40 MG TAB PO SCH (20:23)
[2020-07-10] MEDS ORDERED: HYDROXYCHLOROQUINE SULFATE 200 MG TABLET PO SCH (21:00)
[2020-07-10] MEDS: BACLOFEN 10 MG TABLET PO SCH (22:32)
--- NOTE | 2020-07-10 23:13 | NUR ---
SPOKE TO DR. BRAGA, RECEIVED NEW ORDERS FOR NORCO 10-325 Q8P. RELAYED THAT PATIENT RECEIVED 2 UNITS OF BLOOD WITH BLOOD PRESSURE OF 117/76 AT THIS TIME.
--- NOTE | 2020-07-10 23:15 | NUR ---
HIGH ALERT NOTE: Called Dr. BRAGA back at [id number] identified within the medical roster to verify physician authenticity.
[2020-07-10] MEDS: HYDROcodone/ACETAMIN 10-325 MG TAB PO PRN (23:24)
--- NOTE | 2020-07-11 00:06 | NUR ---
SANDWICH, PUDDING AND JUICES PROVIDED TO PATIENT. PROVIDED PAIN MEDICATION WELL, PATIENT TOLERATED WELL. CALL LIGHT WITHIN REACH, BED ALARM ON, BED AT LOWEST POSITION. WILL CONTINUE TO MONITOR.
[2020-07-11 00:36] VITALS: BP_SYST 130
[2020-07-11 00:48] VITALS: BP_SYST 117
[2020-07-11] MEDS: BACLOFEN 10 MG TABLET PO SCH ×2 (05:14→16:23)
--- NOTE | 2020-07-11 06:30 | NUR ---
CLOSING NOTES PATIENT RESTING, NO SIGNS OF DISTRESS NOTED, IV SITE PATENT, DRESSINGS C/D/I, SALINE LOCK. NO SIGNS OF PAIN AT THIS TIME, CALL LIGHT WITHIN REACH, BED ALARM ON, BED AT LOWEST POSITION. ALL NEEDS MET THROUGHOUT SHIFT. WILL ENDORSE CARE TO ONCOMING SHIFT.
[2020-07-11 06:32] LABS: ALBUMIN 3.4 g/dL (3.4-4.8); CALCIUM 8.6 mg/dL (8.4-11.0); CREATININE 0.8 mg/dL (0.55-1.30); POTASSIUM 4.2 mmol/L (3.5-5.1); TOTAL BILIRUBIN 0.4 mg/dL (0.0-1.0)
[2020-07-11 06:34] LABS: BASOPHILS % (AUTO) 0.4 % (0.0-2.0); EOSINOPHILS # (AUTO) 0.2 K/uL (0.0-0.4); EOSINOPHILS % (AUTO) 2.5 % (0.0-4.0); HEMATOCRIT 28.7 % (36-48); HEMOGLOBIN 9.4 g/dL (12.0-16.0); LYMPHOCYTES # (AUTO) 2.4 K/uL (1.0-5.5); LYMPHOCYTES % (AUTO) 35.6 % (20.5-51.5); MEAN CORPUSCULAR HEMOGLOBIN 27 pg (27-31); MEAN CORPUSCULAR HGB CONC 33 % (32-36); MEAN CORPUSCULAR VOLUME 83 fL (79.0-98.0); MONOCYTES # (AUTO) 0.7 K/uL (0.0-1.0); MONOCYTES % (AUTO) 10.9 % (1.7-9.3); NEUTROPHILS # (AUTO) 3.4 K/uL (1.8-7.7); NEUTROPHILS % (AUTO) 50.6 % (40.0-70.0); PLATELET COUNT (AUTO) 261 K/uL (130-430); RED BLOOD CELL COUNT(AUTO) 3.45 MIL/uL (4.2-6.2); RED CELL DISTRIBUTION WIDTH 16.9 % (9.0-15.0); WHITE BLOOD COUNT (AUTO) 6.7 K/uL (4.8-10.8)
[2020-07-11 08:00] VITALS: BP_SYST 146
[2020-07-11] MEDS: PANTOPRAZOLE SODIUM 40 MG TAB PO SCH (08:56)
[2020-07-11] MEDS: GABAPENTIN 300 MG CAPSULE PO SCH ×2 (08:56→16:23)
[2020-07-11] MEDS: HYDROcodone/ACETAMIN 10-325 MG TAB PO PRN ×2 (08:57→16:40)
[2020-07-11] MEDS ORDERED: MODAFINIL 100 MG TABLET (PROVIGIL) PO SCH ×2 (09:00)
[2020-07-11] MEDS ORDERED: FERROUS SULFATE 325 MG TABLET.DR PO SCH (09:00)
[2020-07-11] MEDS ORDERED: mycophenolate mofetiL 250 MG CAPSULE PO SCH (09:00)
[2020-07-11] MEDS ORDERED: DULoxetine HCL 30 MG CAPSULE.DR (CYMBALTA) PO SCH (09:00)
[2020-07-11] MEDS ORDERED: CYANOCOBALAMIN 1000 mCg TABLET PO SCH (09:00)
--- NOTE | 2020-07-11 10:39 | NUR ---
alert, oriented, and appropriate. C/o back pain, and asking for NORCO 10/325mg po, given
[2020-07-11 12:13] VITALS: BP_SYST 121
[2020-07-11 16:24] VITALS: BP_SYST 121
--- NOTE | 2020-07-11 16:43 | NUR ---
[place] 10 as needed every 8hrs, for pain. Adamantly asked to have it change to either 4 or 6hrs prn. Attending declined the request , " she comes her for blood transfusion, will discharge her when rounds making." 1640 angrily asked for [place] 10, " so much in pain, cant wait. Request honored
[2020-07-11 17:40] VITALS: BP_SYST 146
== END 2020-07-11 18:30 | disposition home or self-care (01) | DRG 663 ==
LOC: SED 10:47 → SMU 13:45
PROVIDERS: ADMIT Internal Medicine; ATTEND Internal Medicine
PROC: 30233N1 Transfusion of Nonautologous Red Blood Cells into Peripheral Vein, Percutaneous Approach (ICD-10-PCS; principal; 2020-07-10)
DX: D50.9 Iron deficiency anemia, unspecified (principal); M34.9 Systemic sclerosis, unspecified; I10 Essential (primary) hypertension; E66.09 Other obesity due to excess calories; I47.1 Supraventricular tachycardia; Z20.828 Contact with and (suspected) exposure to other viral communicable diseases; Z79.899 Other long term (current) drug therapy; Z68.36 Body mass index [BMI] 36.0-36.9, adult; Z87.891 Personal history of nicotine dependence
CPT/HCPCS: 36415; 36430; 80053; 81003; 84484; 85025; 86886; 86900; 86901; 86920; 87081; 93005; 99285; J1940; J7030; J7517; P9021

== ENCOUNTER 2020-08-16 17:01 | Emergency (ER) | payer OTHER, SELFPAY ==
[~2020-08-16] VITALS: Ht 165.1 cm; Wt 99.8 kg
[~2020-08-16 17:01] MED LIST changes: +HYDR-4274 PO; +MODA100T31 PO; -POTA20TA83 PO; +ZOLP10TA2 PO
[2020-08-16 17:04] VITALS: BP_SYST 155
--- NOTE | 2020-08-16 17:10 | NUR ---
Pt states she is going home, pt LWBS
== END 2020-08-16 17:10 | disposition left against medical advice (07) ==
LOC: SED 17:01
DX: Z53.21 Procedure and treatment not carried out due to patient leaving prior to being seen by health care provider (principal)

== ENCOUNTER 2020-08-18 17:10 | Emergency (ER) | payer OTHER ==
[~2020-08-18] VITALS: Ht 167.6 cm; Wt 83.9 kg
--- NOTE | 2020-08-18 17:15 | NUR ---
Pt in the tent
--- NOTE | 2020-08-18 17:20 | NUR ---
Pt brought by self,A&Ox4, pt presents to ER with weakness, cough, congestion, skin pink and warm, cap refill <3.
--- NOTE | 2020-08-18 17:25 | NUR ---
Dr Castorena evaluating patient at this time
[2020-08-18 17:33] VITALS: BP_SYST 130
--- NOTE | 2020-08-18 18:20 | NUR ---
Pt A&Ox4, VSS, respirations even and unlabored
[2020-08-18 18:28] LABS: BASOPHILS # (AUTO) 0.1 K/uL (0.0-0.2); BASOPHILS % (AUTO) 0.8 % (0.0-2.0); EOSINOPHILS # (AUTO) 0.1 K/uL (0.0-0.4); EOSINOPHILS % (AUTO) 1.1 % (0.0-4.0); HEMATOCRIT 30.5 % (36-48); HEMOGLOBIN 9.7 g/dL (12.0-16.0); LYMPHOCYTES # (AUTO) 2.7 K/uL (1.0-5.5); LYMPHOCYTES % (AUTO) 24.2 % (20.5-51.5); MEAN CORPUSCULAR HEMOGLOBIN 24 pg (27-31); MEAN CORPUSCULAR HGB CONC 32 % (32-36); MEAN CORPUSCULAR VOLUME 77 fL (79.0-98.0); MONOCYTES # (AUTO) 0.8 K/uL (0.0-1.0); MONOCYTES % (AUTO) 7.4 % (1.7-9.3); NEUTROPHILS # (AUTO) 7.5 K/uL (1.8-7.7); NEUTROPHILS % (AUTO) 66.5 % (40.0-70.0); PLATELET COUNT (AUTO) 394 K/uL (130-430); RED BLOOD CELL COUNT(AUTO) 3.96 MIL/uL (4.2-6.2); RED CELL DISTRIBUTION WIDTH 18.4 % (9.0-15.0); WHITE BLOOD COUNT (AUTO) 11.3 K/uL (4.8-10.8)
[2020-08-18 19:14] VITALS: BP_SYST 130
--- NOTE | 2020-08-18 19:14 | NUR ---
Patient given written and verbal discharge instructions and verbalizes understanding. ER MD discussed with patient the results and treatment provided. Patient in stable condition. ID arm band removed. Rx of Zinc, Azithromycin ,Prednisone given. Patient educated on pain management and to follow up with PMD. Pain Scale 0/10. Opportunity for questions provided and answered. Medication side effect fact sheet provided.
== END 2020-08-18 19:14 | disposition home or self-care (01) ==
LOC: SED 17:10
DX: U07.1 COVID-19 (principal); R05 Cough
CPT/HCPCS: 36415; 71045; 85025; 99284; C9803; U0003

== ENCOUNTER 2020-09-02 22:22 | Emergency (ER) | payer OTHER, SELFPAY ==
[~2020-09-02] VITALS: Ht 165.1 cm; Wt 103.4 kg
[2020-09-02 22:30] VITALS: BP_SYST 143
[2020-09-03] MEDS ORDERED: KETOROLAC TROMETHAMINE 30 MG VIAL ONE (00:52)
[2020-09-03 00:57] LABS: BASOPHILS # (AUTO) 0.1 K/uL (0.0-0.2); BASOPHILS % (AUTO) 0.8 % (0.0-2.0); EOSINOPHILS # (AUTO) 0.1 K/uL (0.0-0.4); HEMATOCRIT 25.9 % (36-48); HEMOGLOBIN 8.2 g/dL (12.0-16.0); LYMPHOCYTES # (AUTO) 2.7 K/uL (1.0-5.5); LYMPHOCYTES % (AUTO) 23.5 % (20.5-51.5); MEAN CORPUSCULAR HEMOGLOBIN 23 pg (27-31); MEAN CORPUSCULAR HGB CONC 32 % (32-36); MEAN CORPUSCULAR VOLUME 73 fL (79.0-98.0); MONOCYTES # (AUTO) 1.1 K/uL (0.0-1.0); MONOCYTES % (AUTO) 9.3 % (1.7-9.3); NEUTROPHILS # (AUTO) 7.5 K/uL (1.8-7.7); NEUTROPHILS % (AUTO) 65.4 % (40.0-70.0); PLATELET COUNT (AUTO) 349 K/uL (130-430); RED BLOOD CELL COUNT(AUTO) 3.53 MIL/uL (4.2-6.2); RED CELL DISTRIBUTION WIDTH 18.4 % (9.0-15.0); WHITE BLOOD COUNT (AUTO) 11.4 K/uL (4.8-10.8)
[2020-09-03] MEDS ORDERED: KETOROLAC TROMETHAMINE 30 MG VIAL IM ONE (01:00)
[2020-09-03 01:12] LABS: ANION GAP 11 (5-15); C-REACTIVE PROTEIN QUANT 1.3 mg/dL (0-0.5); CALCIUM 9.3 mg/dL (8.4-11.0); CHLORIDE 100 mmol/L (98-107); CREATININE 0.92 mg/dL (0.55-1.30); FIBRINOGEN 239 mg/dL (200-400); GLUCOSE 92 mg/dL (70-99); POTASSIUM 3.1 mmol/L (3.5-5.1); SODIUM SERUM 143 mmol/L (136-145); UREA NITROGEN, BLOOD 24 mg/dL (8-21)
[2020-09-03 01:21] LABS: ALANINE AMINOTRANSFERASE 53 U/L (12-78); ASPARTATE AMINOTRANSFERASE 20 U/L (10-37); GFR AFRICAN AMERICAN 83 mL/min (>90); TOTAL BILIRUBIN 0.3 mg/dL (0.0-1.0)
[2020-09-03] MEDS ORDERED: MORPHINE 4 MG/ML INJ. SYRINGE IVP ONE ×2 (02:15→06:30)
[2020-09-03] MEDS ORDERED: MORPHINE 4 MG/ML INJ. SYRINGE ONE (02:17)
[2020-09-03] MEDS ORDERED: KCL 20 mEq in 100 mL (PREMIX) 100 ML IV ONE (05:45)
[2020-09-03] MEDS ORDERED: POTASSIUM CHLORIDE 10 MEQ TAB.PRT.SR PO ONE (06:15)
[2020-09-03] MEDS ORDERED: POTASSIUM CHLORIDE 20 MEQ TAB.PRT.SR PO ONE (06:30)
[2020-09-03 07:03] LABS: BASOPHILS % (AUTO) 0.4 % (0.0-2.0); EOSINOPHILS # (AUTO) 0.1 K/uL (0.0-0.4); EOSINOPHILS % (AUTO) 1.3 % (0.0-4.0); HEMATOCRIT 26.2 % (36-48); HEMOGLOBIN 8.4 g/dL (12.0-16.0); LYMPHOCYTES # (AUTO) 2.9 K/uL (1.0-5.5); LYMPHOCYTES % (AUTO) 28.4 % (20.5-51.5); MEAN CORPUSCULAR HEMOGLOBIN 24 pg (27-31); MEAN CORPUSCULAR HGB CONC 32 % (32-36); MEAN CORPUSCULAR VOLUME 76 fL (79.0-98.0); MONOCYTES # (AUTO) 1.1 K/uL (0.0-1.0); MONOCYTES % (AUTO) 10.5 % (1.7-9.3); NEUTROPHILS % (AUTO) 59.4 % (40.0-70.0); PLATELET COUNT (AUTO) 303 K/uL (130-430); RED BLOOD CELL COUNT(AUTO) 3.46 MIL/uL (4.2-6.2); RED CELL DISTRIBUTION WIDTH 19.5 % (9.0-15.0)
[2020-09-03] MEDS ORDERED: POTASSIUM CHLORIDE 20 MEQ/PKT PACKET PO ONE (07:45)
[2020-09-03 09:00] VITALS: BP_SYST 128
== END 2020-09-03 09:00 | disposition home or self-care (01) ==
LOC: SED 22:22
DX: E87.6 Hypokalemia (principal); D64.9 Anemia, unspecified; M32.9 Systemic lupus erythematosus, unspecified; I10 Essential (primary) hypertension; Z79.899 Other long term (current) drug therapy; Z20.822 Contact with and (suspected) exposure to COVID-19
CPT/HCPCS: 36415; 36430; 71045; 80053; 84132; 84484; 85025; 85379; 85384; 85610; 86140; 86886; 86900; 86901; 86920; 87426; 93005; 96372; 96374; 96375; 96376; 99291; 99292; J1885; J2270; P9021

== ENCOUNTER 2020-09-27 15:52 | Emergency (ER) | payer OTHER, SELFPAY ==
[~2020-09-27] VITALS: Ht 165.1 cm; Wt 102.1 kg
[2020-09-27 16:02] VITALS: BP_SYST 145
[2020-09-27 17:00] LABS: HEMATOCRIT 25.9 % (36-48); MEAN CORPUSCULAR HEMOGLOBIN 23 pg (27-31)
[2020-09-27 17:10] LABS: MEAN CORPUSCULAR HGB CONC 31 % (32-36); MEAN CORPUSCULAR VOLUME 74 fL (79.0-98.0); PLATELET COUNT (AUTO) 294 K/uL (130-430); RED BLOOD CELL COUNT(AUTO) 3.49 MIL/uL (4.2-6.2); RED CELL DISTRIBUTION WIDTH 19.7 % (9.0-15.0); WHITE BLOOD COUNT (AUTO) 7.7 K/uL (4.8-10.8)
[2020-09-27] MEDS ORDERED: ACETAMINOPHEN 500 MG TABLET PO ONE (17:30)
[2020-09-27] MEDS ORDERED: ONDANSETRON 4 MG ODT TAB PO ONE (17:30)
[2020-09-27 17:55] LABS: BAND % (MANUAL) 14 % (0-6); BASOPHILS % (MANUAL) 0 % (0-2); EOSINOPHILS % (MANUAL) 0 % (0-7); LYMPHOCYTES % (MANUAL) 8 % (20-46); MONOCYTES % (MANUAL) 14 % (0-11)
[2020-09-27 18:24] VITALS: BP_SYST 123
== END 2020-09-27 18:24 | disposition home or self-care (01) ==
LOC: SED 15:52
DX: J06.9 Acute upper respiratory infection, unspecified (principal); I10 Essential (primary) hypertension; Z79.899 Other long term (current) drug therapy; Z86.2 Personal history of diseases of the blood and blood-forming organs and certain disorders involving the immune mechanism
CPT/HCPCS: 36415; 71045; 85007; 85027; 99284; Q0162